=== PATIENT | male | born 1950 | race Caucasian/White ===

== ENCOUNTER 2021-07-21 07:02 | Inpatient (IN) ==
[2021-07-21] MEDS ORDERED: SODIUM CHLORIDE 0.9% 1000ML 1,000 ML IV ONE (07:24)
[2021-07-21] MEDS ORDERED: fentaNYL citrate 100 MCG/2 ML VIAL IV STA (07:24)
[2021-07-21] MEDS ORDERED: ONDANSETRON INJ 2 MG/ML 2 ML VIAL IV STA (07:24)
[2021-07-21] MEDS ORDERED: diphenhydrAMINE 50 MG/ML VIAL IV STA (07:24)
--- NOTE | 2021-07-21 07:31 | Emergency Department Note ---
Impression & Plan Acute pancreatitis ED Provider Note Name: DAMIEN STOCKTON Age: 70 Sex: M Arrives Via: Walk-In Informant: Patient, ED Provider: Gustavo Zamora MD Chief Complaint: Epigastric pain Impression: As per impressions above Medical Decision Makin-year-old pleasant gentleman with a history of prediabetes, seasonal allergies, GERD arrives for acute onset epigastric pain radiating to back with nausea for the last 12 hours. No history of similar. He did have wine and crab cakes just prior to this beginning. He does not drink heavily or regularly and has no history of gallbladder issues. Patient has moderate tenderness to palpation on examination and given findings felt CT imaging indicated. Sent for CT which reveals acute pancreatitis. Labs without significant leukocytosis and vital signs look good. Otherwise labs reveal mildly elevated lipase. Pain controlled with IV narcotics patient kept comfortable. Given this I do feel he requires hospitalization and he and are on board with this plan. Prior Medical Record and Triage/Nursing Notes reviewed by Me Additional history obtained from chart Differentials:Pancreatitis, biliary dysfunction, cholecystitis, aortic dissection/rupture, GERD/PUD, ACS, diverticulitis, appendicitis, bowel obstruction, ischemia, UTI amongst others. Vital Signs: reviewed and remarkable for no significant abnormalities Interventions: Fentanyl 50 mcg IV, Benadryl 25 mg IV, Zofran 4 mg IV, normal saline bolus 1 L, Dilaudid 0.5 mg IV Labs:Reviewed and remarkable for mildly elevated lipase Imaging:CT imaging reveals acute pancreatitis see radiologist read below. I did note that he will likely require 3-month follow-up CT for repeat evaluation EKG:Per My Interpretation: Indication Epigastric Pain: NSR 83 bpm, qtc 446. No Ectopy. No Ischemia. Compared to EKG 08/16/03, no significant changes. Consults:Dr Reece Hospitalist Plan: Disposition:Hospitalization. Condition: Good History of Present Illness:70-year-old gentleman arrives for evaluation of abdominal pain. Patient notes last night around 8 PM he developed sudden onset epigastric pain. Associated with nausea, bloating and feeling that he needs to have a bowel movement without being able to do so. Pain is rapidly worsened overnight and is bandlike across the upper abdomen radiates to his umbilicus. Patient has been using Gas-X overnight without much improvement. Pain is worse with movement and better with rest. He notes no previous episodes of similar. He does have a history of GERD but this is not consistent with his previous GERD symptoms. He was having some wine and crab cakes last night when this started. His had similar and is not having any symptoms. Patient has had no recent falls, trauma, injuries. He denies any recent antibiotics. He has had no vom iting, chest pain, shortness of breath, headaches, neck pain, rashes, fevers, chills, urinary/bowel symptoms, leg swelling, bruising, blood in stool, nor other symptoms. Patient has not been any new medications. He has no smoking history. He has no family history of abdominal issues. He has no history of abdominal surgeries. Patient notes a remote history of UTI with complication requiring a CT of the abdomen pelvis about 25 to 30 years ago denies any symptoms similar to that with this episode. ROS: See above HPI for pertinent positives & negatives. A total of 10 systems reviewed and were otherwise negative. 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 Vitals:Blood Pressure: 165/99, Pulse 88, RR 20, T 37.0C, O2 94% on RA Physical Exam: GENERAL: Patient is uncomfortable appearing and in moderate distress. EYES: No scleral icterus, unremarkable pupils. ENT: Mucous membranes moist, no nasal congestion. NECK: No masses appreciated, nomeningismus, trachea is midline. RESPIRATORY: No dyspnea. Clear to auscultation and equal bilaterally. No wheeze, no rhonchi. CARDIOVASCULAR: Regular rate and rhythm.No murmurs, rubs, gallops appreciated. GASTROINTESTINAL: TTP over upper/epigastric abdomen, no peritonitis, soft, normal bowel sounds, no masses BACK: No midline tenderness, no CVA tenderness EXTREMITIES: Normal motion all extremities, no cyanosis, no edema. NEUROLOGIC: Alert and oriented, no acute motor or sensory deficits, no focal weakness, cranial nerves grossly intact. SKIN: No rash, no jaundice, no diaphoresis. PSYCH: Appropriate GCS: 15 ED Course: Times/Reassessments: Patient improved with IV narcotics and kept comfortable throughout. Questions answered. Gustavo Zamora MD Past Med/Surg History Medical History Adenomatous polyp of colon GERD (gastroesophageal reflux disease) Insomnia Prediabetes Seasonal allergies Surgical History History of colonoscopy History of esophagogastroduodenoscopy (EGD) History of root canal procedure History of wisdom tooth extraction Family History Father Diabetes Myocardial infarction Denies family history of Ovarian cancer Prostate cancer No family history of adverse response to anesthesia Breast cancer Colorectal cancer Social History Smoking Status: Never smoker Second Hand Exposure: No; Hx Alcohol Use: Yes Alcohol type: beer, wine and hard liquor Hx Substance Use: No Preferred Language: Romansh Communication Ability: Effective Program Evaluator Required: No Beliefs That Will Affect Care: None marital status: Current Living Situation: Spouse current occupational status: employed Feels Safe at Home: Yes Dental Care, Regularly: Yes Physical Activity Frequency: 5-6 Times per Week Seatbelt Use: always Sunscreen Use: Yes Assistive Devices: Glasses Allergies Allergies Allergy/AdvReac Type Severity Reaction Status Date / Time latex Allergy Unknown ITCHING Verified 07/21/21 08:16 Home Meds Home Medications Medication Instructions Recorded Confirmed famotidine 20 mg tablet (Pepcid) 20 mg PO QAM 07/19/18 07/21/21 fexofenadine 60 mg tablet 60 mg PO BID 07/19/18 07/21/21 multivitamin 1 tab PO QAM 07/19/18 07/21/21 triamcinolone acetonide 55 mcg 1 spray INTRANASAL HS 07/19/18 07/21/21 nasal spray aerosol (Nasacort) cholecalciferol (vitamin D3) 50 50 mcg PO QAM 04/09/21 07/21/21 mcg (2,000 unit) capsule omeprazole 20 mg tablet,delayed 20 mg PO DAILY@1600 07/21/21 07/21/21 release Previous Rx's Medication Instructions Recorded albuterol sulfate 90 mcg/actuation 1 inh INHALATION QID PRN #18 g 03/13/20 aerosol inhaler (Ventolin HFA) zolpidem 5 mg tablet 5 mg PO HS PRN #90 tab 10/09/20 Results & Data (ED) Vital Signs Vital Signs - 24 hr 07/21/21 07:09 07/21/21 07:34 07/21/21 07:40 Temperature 37.0 C Temperature Source Oral Pulse Rate 88 81 81 Pulse Rate from SpO2 Sensor 83 82 Respiratory Rate 20 20 15 Respiratory Effort / Characteristics Non-Labored Spontaneous Respiratory Depth Normal Respiratory Pattern Regular Blood Pressure 165/99 H Blood Pressure Mean 121 Pulse Oximetry 94 94 94 Oxygen Delivery Method Room Air Sepsis Recent Fever Within 48 Hours No Sepsis New/Unexplained Change in Mental Status N/A Sepsis Action Taken by Nursing No Action Required 07/21/21 07:50 07/21/21 08:00 07/21/21 08:10 Temperature Temperature Source Pulse Rate 78 75 76 Pulse Rate from SpO2 Sensor 76 74 77 Respiratory Rate 13 13 19 Respiratory Effort / Characteristics Respiratory Depth Respiratory Pattern Blood Pressure 151/93 H Blood Pressure Mean 112 Pulse Oximetry 95 95 91 Oxygen Delivery Method Sepsis Recent Fever Within 48 Hours Sepsis New/Unexplained Change in Mental Status Sepsis Action Taken by Nursing 07/21/21 08:20 07/21/21 08:42 07/21/21 08:50 Temperature Temperature Source Pulse Rate 73 79 71 Pulse Rate from SpO2 Sensor 74 79 72 Respiratory Rate 18 16 18 Respiratory Effort / Characteristics Respiratory Depth Respiratory Pattern Blood Pressure 160/85 H Blood Pressure Mean 110 Pulse Oximetry 94 94 97 Oxygen Delivery Method Sepsis Recent Fever Within 48 Hours Sepsis New/Unexplained Change in Mental Status Sepsis Action Taken by Nursing 07/21/21 09:00 07/21/21 09:10 07/21/21 09:20 Temperature Temperature Source Pulse Rate 67 74 71 Pulse Rate from SpO2 Sensor 69 74 72 Respiratory Rate 18 21 17 Respiratory Effort / Characteristics Respiratory Depth Respiratory Pattern Blood Pressure 158/93 H Blood Pressure Mean 114 Pulse Oximetry 95 95 95 Oxygen Delivery Method Sepsis Recent Fever Within 48 Hours Sepsis New/Unexplained Change in Mental Status Sepsis Action Taken by Nursing 07/21/21 09:30 07/21/21 09:40 07/21/21 09:50 Temperature Temperature Source Pulse Rate 75 81 71 Pulse Rate from SpO2 Sensor 74 82 71 Respiratory Rate 17 18 16 Respiratory Effort / Characteristics Respiratory Depth Respiratory Pattern Blood Pressure 148/89 H Blood Pressure Mean 108 Pulse Oximetry 91 92 92 Oxygen Delivery Method Sepsis Recent Fever Within 48 Hours Sepsis New/Unexplained Change in Mental Status Sepsis Action Taken by Nursing 07/21/21 10:00 07/21/21 10:10 07/21/21 10:20 Temperature Temperature Source Pulse Rate 72 71 81 Pulse Rate from SpO2 Sensor 72 71 80 Respiratory Rate 18 20 18 Respiratory Effort / Characteristics Respiratory Depth Respiratory Pattern Blood Pressure 147/88 H Blood Pressure Mean 107 Pulse Oximetry 93 94 95 Oxygen Delivery Method Sepsis Recent Fever Within 48 Hours Sepsis New/Unexplained Change in Mental Status Sepsis Action Taken by Nursing 07/21/21 10:30 07/21/21 10:40 07/21/21 10:50 Temperature Temperature Source Pulse Rate 78 73 72 Pulse Rate from SpO2 Sensor 78 73 74 Respiratory Rate 20 15 20 Respiratory Effort / Characteristics Respiratory Depth Respiratory Pattern Blood Pressure 160/96 H Blood Pressure Mean 117 Pulse Oximetry 95 96 94 Oxygen Delivery Method Sepsis Recent Fever Within 48 Hours Sepsis New/Unexplained Change in Mental Status Sepsis Action Taken by Nursing 07/21/21 11:00 07/21/21 11:10 07/21/21 11:20 Temperature Temperature Source Pulse Rate 87 81 82 Pulse Rate from SpO2 Sensor 85 82 81 Respiratory Rate 24 21 17 Respiratory Effort / Characteristics Respiratory Depth Respiratory Pattern Blood Pressure 153/88 H Blood Pressure Mean 109 Pulse Oximetry 93 95 92 Oxygen Delivery Method Sepsis Recent Fever Within 48 Hours Sepsis New/Unexplained Change in Mental Status Sepsis Action Taken by Nursing 07/21/21 11:30 07/21/21 11:40 07/21/21 11:50 Temperature Temperature Source Pulse Rate 76 77 74 Pulse Rate from SpO2 Sensor 76 76 74 Respiratory Rate 17 16 15 Respiratory Effort / Characteristics Respiratory Depth Respiratory Pattern Blood Pressure 147/87 H Blood Pressure Mean 107 Pulse Oximetry 91 91 92 Oxygen Delivery Method Sepsis Recent Fever Within 48 Hours Sepsis New/Unexplained Change in Mental Status Sepsis Action Taken by Nursing 07/21/21 12:00 07/21/21 12:10 07/21/21 12:20 Temperature Temperature Source Pulse Rate 77 76 75 Pulse Rate from SpO2 Sensor 77 75 Respiratory Rate 15 16 17 Respiratory Effort / Characteristics Respiratory Depth Respiratory Pattern Blood Pressure 148/84 H Blood Pressure Mean 105 Pulse Oximetry 91 92 Oxygen Delivery Method Sepsis Recent Fever Within 48 Hours Sepsis New/Unexplained Change in Mental Status Sepsis Action Taken by Nursing 07/21/21 12:30 07/21/21 12:40 Temperature Temperature Source Pulse Rate 77 81 Pulse Rate from SpO2 Sensor 76 81 Respiratory Rate 15 21 Respiratory Effort / Characteristics Respiratory Depth Respiratory Pattern Blood Pressure 151/85 H Blood Pressure Mean 107 Pulse Oximetry 92 93 Oxygen Delivery Method Sepsis Recent Fever Within 48 Hours Sepsis New/Unexplained Change in Mental Status Sepsis Action Taken by Nursing Laboratory Data Result diagrams: 07/21/21 07:40 07/21/21 07:40 Lab Results 07/21/21 07/21/21 07/21/21 Range/Units 07:40 07:40 07:40 WBC 10.95 H (4.8-10.8) K/uL RBC 5.35 (4.7-6.1) M/uL Hgb 16.3 (14.0-18.0) g/dL POC Hgb (14.0-18.0) g/dl Hct 46.2 (42-52) % POC Hct (42-52) % MCV 86.4 (80-100) fL MCH 30.5 (25-34) pg MCHC 35.3 (32-36) g/dL RDW Std Deviation 42.5 (36.4-46.3) fL RDW Coeff of Swathi 13.5 (11.5-14.5) % Plt Count 258 (130-400) K/uL MPV 11.0 H (7.4-10.4) fL Immature Gran % (Auto) 0.1 % Neut % (Auto) 82.3 % Lymph % (Auto) 9.6 % [place] % (Auto) 7.8 % Eos % (Auto) 0.1 % Baso % (Auto) 0.1 % Neut # (Auto) 9.02 H (1.4-6.5) K/uL Lymph # (Auto) 1.05 L (1.2-3.4) K/uL [place] # (Auto) 0.85 H (0.11-0.59) K/uL Eos # (Auto) 0.01 (0-0.5) K/uL Baso # (Auto) 0.01 (0-0.2) K/uL Immature Gran # (Auto) 0.01 (0.00-0.02) K/uL POC Sodium (135-144) mmol/L Sodium 137 (136-145) mmol/L POC Potassium (3.3-5.0) mmol/L Potassium 3.8 (3.5-5.1) mmol/L POC Chloride (101-112) mmol/L Chloride 104 (98-107) mmol/L Carbon Dioxide 25 (21-32) mmol/L POC Total CO2 (24-31) mmol/L Anion Gap 8 (3-11) POC Anion Gap (16-25) mmol/L POC BUN (7-18) mg/dl BUN 18 (6-23) mg/dl Creatinine 0.86 (0.6-1.4) mg/dl POC Creatinine (0.6-1.3) mg/dl Est Cr Clr Drug Dosing 77.3 ml/min Est GFR ( Amer) 101.8 ml/min Est GFR (Non-Af Amer) 87.9 ml/min BUN/Creatinine Ratio 20.9 H (10-20) Glucose 123 H (70-99(Fasting)) mg/dl POC Glucose (other) (70-99) mg/dl Calcium 9.1 (8.5-10.1) mg/dl POC Ioniz Calcium Brittany (1.12-1.32) mmol/l Total Bilirubin 0.7 (0.2-1.0) mg/dl Direct Bilirubin 0.1 (0-0.2) mg/dl AST 20 (13-39) U/L ALT 19 (7-52) U/L Alkaline Phosphatase 46 (34-104) U/L Troponin I < 0.03 (0-0.04) ng/ml Total Protein 6.9 (6.0-8.3) gm/dl Albumin 4.2 (3.4-5.0) gm/dl Triglycerides 50 (0-150) mg/dl Lipase 277 H (11-82) U/L Urine Color Urine Appearance (Clear) Urine pH (4.5-7.5) Ur Specific [place] (1.000-1.030) Urine Protein (Negative) Urine Glucose (UA) (Negative) Urine Ketones (Negative) Urine Blood (Negative) Urine Nitrite (Negative) Urine Bilirubin (Negative) Urine Urobilinogen (Negative) Ur Leukocyte Esterase (Negative) Urine WBC (Auto) (0-5) /hpf Urine RBC (Auto) (0-4) /hpf U Hyaline Cast (Auto) (0-5) /lpf U Epithel Cells (Auto) (0-5) /lpf Urine Bacteria (Auto) (Negative) SARS-CoV-2, RNA, NAAT 07/21/21 07/21/21 07/21/21 Range/Units 07:53 08:57 09:17 WBC (4.8-10.8) K/uL RBC (4.7-6.1) M/uL Hgb (14.0-18.0) g/dL POC Hgb 16.0 (14.0-18.0) g/dl Hct (42-52) % POC Hct 47 (42-52) % MCV (80-100) fL MCH (25-34) pg MCHC (32-36) g/dL RDW Std Deviation (36.4-46.3) fL RDW Coeff of Swathi (11.5-14.5) % Plt Count (130-400) K/uL MPV (7.4-10.4) fL Immature Gran % (Auto) % Neut % (Auto) % Lymph % (Auto) % [place] % (Auto) % Eos % (Auto) % Baso % (Auto) % Neut # (Auto) (1.4-6.5) K/uL Lymph # (Auto) (1.2-3.4) K/uL [place] # (Auto) (0.11-0.59) K/uL Eos # (Auto) (0-0.5) K/uL Baso # (Auto) (0-0.2) K/uL Immature Gran # (Auto) (0.00-0.02) K/uL POC Sodium 139 (135-144) mmol/L Sodium (136-145) mmol/L POC Potassium 3.9 (3.3-5.0) mmol/L Potassium (3.5-5.1) mmol/L POC Chloride 102 (101-112) mmol/L Chloride (98-107) mmol/L Carbon Dioxide (21-32) mmol/L POC Total CO2 26 (24-31) mmol/L Anion Gap (3-11) POC Anion Gap 16.0 (16-25) mmol/L POC BUN 19 H (7-18) mg/dl BUN (6-23) mg/dl Creatinine (0.6-1.4) mg/dl POC Creatinine 0.8 (0.6-1.3) mg/dl Est Cr Clr Drug Dosing ml/min Est GFR ( Amer) ml/min Est GFR (Non-Af Amer) ml/min BUN/Creatinine Ratio (10-20) Glucose (70-99(Fasting)) mg/dl POC Glucose (other) 130 H (70-99) mg/dl Calcium (8.5-10.1) mg/dl POC Ioniz Calcium Brittany 1.18 (1.12-1.32) mmol/l Total Bilirubin (0.2-1.0) mg/dl Direct Bilirubin (0-0.2) mg/dl AST (13-39) U/L ALT (7-52) U/L Alkaline Phosphatase (34-104) U/L Troponin I (0-0.04) ng/ml Total Protein (6.0-8.3) gm/dl Albumin (3.4-5.0) gm/dl Triglycerides (0-150) mg/dl Lipase (11-82) U/L Urine Color Yellow Urine Appearance Clear (Clear) Urine pH 7.5 (4.5-7.5) Ur Specific [place] 1.039 H (1.000-1.030) Urine Protein Negative (Negative) Urine Glucose (UA) Negative (Negative) Urine Ketones Negative (Negative) Urine Blood Trace H (Negative) Urine Nitrite Negative (Negative) Urine Bilirubin Negative (Negative) Urine Urobilinogen Negative (Negative) Ur Leukocyte Esterase Negative (Negative) Urine WBC (Auto) 0 (0-5) /hpf Urine RBC (Auto) 10-30 H (0-4) /hpf U Hyaline Cast (Auto) 0 (0-5) /lpf U Epithel Cells (Auto) 0-5 (0-5) /lpf Urine Bacteria (Auto) Negative (Negative) SARS-CoV-2, RNA, NAAT Cancelled 07/21/21 Range/Units 09:55 WBC (4.8-10.8) K/uL RBC (4.7-6.1) M/uL Hgb (14.0-18.0) g/dL POC Hgb (14.0-18.0) g/dl Hct (42-52) % POC Hct (42-52) % MCV (80-100) fL MCH (25-34) pg MCHC (32-36) g/dL RDW Std Deviation (36.4-46.3) fL RDW Coeff of Swathi (11.5-14.5) % Plt Count (130-400) K/uL MPV (7.4-10.4) fL Immature Gran % (Auto) % Neut % (Auto) % Lymph % (Auto) % [place] % (Auto) % Eos % (Auto) % Baso % (Auto) % Neut # (Auto) (1.4-6.5) K/uL Lymph # (Auto) (1.2-3.4) K/uL [place] # (Auto) (0.11-0.59) K/uL Eos # (Auto) (0-0.5) K/uL Baso # (Auto) (0-0.2) K/uL Immature Gran # (Auto) (0.00-0.02) K/uL POC Sodium (135-144) mmol/L Sodium (136-145) mmol/L POC Potassium (3.3-5.0) mmol/L Potassium (3.5-5.1) mmol/L POC Chloride (101-112) mmol/L Chloride (98-107) mmol/L Carbon Dioxide (21-32) mmol/L POC Total CO2 (24-31) mmol/L Anion Gap (3-11) POC Anion Gap (16-25) mmol/L POC BUN (7-18) mg/dl BUN (6-23) mg/dl Creatinine (0.6-1.4) mg/dl POC Creatinine (0.6-1.3) mg/dl Est Cr Clr Drug Dosing ml/min Est GFR ( Amer) ml/min Est GFR (Non-Af Amer) ml/min BUN/Creatinine Ratio (10-20) Glucose (70-99(Fasting)) mg/dl POC Glucose (other) (70-99) mg/dl Calcium (8.5-10.1) mg/dl POC Ioniz Calcium Brittany (1.12-1.32) mmol/l Total Bilirubin (0.2-1.0) mg/dl Direct Bilirubin (0-0.2) mg/dl AST (13-39) U/L ALT (7-52) U/L Alkaline Phosphatase (34-104) U/L Troponin I (0-0.04) ng/ml Total Protein (6.0-8.3) gm/dl Albumin (3.4-5.0) gm/dl Triglycerides (0-150) mg/dl Lipase (11-82) U/L Urine Color Urine Appearance (Clear) Urine pH (4.5-7.5) Ur Specific [place] (1.000-1.030) Urine Protein (Negative) Urine Glucose (UA) (Negative) Urine Ketones (Negative) Urine Blood (Negative) Urine Nitrite (Negative) Urine Bilirubin (Negative) Urine Urobilinogen (Negative) Ur Leukocyte Esterase (Negative) Urine WBC (Auto) (0-5) /hpf Urine RBC (Auto) (0-4) /hpf U Hyaline Cast (Auto) (0-5) /lpf U Epithel Cells (Auto) (0-5) /lpf Urine Bacteria (Auto) (Negative) SARS-CoV-2, RNA, NAAT NEGATIVE Administered Medications Hydromorphone HCl (Hydromorphone Inj 0.5 Mg/0.5 Ml Syr) 0.5 mg IV Q15M PRN PRN Reason: Pain Stop: 08/04/21 09:12 Last Admin: 07/21/21 11:18 Dose: 0.5 mg Documented by: [id number] Lactated Ringer's (Lr) 1,000 mls @ 125 mls/hr IV .Q8H [facility] Stop: 08/20/21 10:44 Last Admin: 07/21/21 11:15 Dose: 125 mls/hr Documented by: [id number] Discontinued Medications Diphenhydramine HCl (Diphenhydramine 50 Mg/Ml Vial) 25 mg IV NOW STA Stop: 07/21/21 07:25 Last Admin: 07/21/21 08:04 Dose: 25 mg Documented by: [id number] Fentanyl Citrate (Fentanyl Citrate 100 Mcg/2 Ml Vial) 50 mcg IV NOW STA Stop: 07/21/21 07:25 Last Admin: 07/21/21 08:04 Dose: 50 mcg Documented by: [id number] Hydromorphone HCl (Hydromorphone Inj 0.5 Mg/0.5 Ml Syr) 0.5 mg IV NOW STA Stop: 07/21/21 09:14 Last Admin: 07/21/21 09:26 Dose: 0.5 mg Documented by: [id number] Sodium Chloride (Nss 1000ml) 1,000 mls @ 999 mls/hr IV .Q1H1M ONE Stop: 07/21/21 08:24 Last Admin: 07/21/21 08:06 Dose: 999 mls/hr Documented by: [id number] Ioversol (Optiray 320 100ml) 95 ml IV ONCE ONE Stop: 07/21/21 08:40 Last Admin: 07/21/21 08:39 Dose: 95 ml Documented by: [id number] Ondansetron HCl (Ondansetron Inj 2 Mg/Ml 2 Ml Vial) 4 mg IV NOW STA Stop: 07/21/21 07:25 Last Admin: 07/21/21 08:04 Dose: 4 mg Documented by: [id number] Imaging Data Radiologist's Impression: Abdomen/Pelvis CT 07/21/21 07:24 CT OF THE ABDOMEN AND PELVIS WITH CONTRAST CLINICAL HISTORY: Epigastric and mid abdominal pain. COMPARISON STUDY: Renal ultrasound May 03, 2008. TECHNIQUE: Following IV administration of 95 mL of Optiray, axial images of the abdomen and pelvis were obtained from the lung bases to the proximal femurs. Images were reviewed in the axial, sagittal, and coronal planes. IV contrast was administered without complication. Automated exposure control was utilized for the study. A dose lowering technique was utilized adhering to the principles of ALARA. CT DOSE: 341.44 mGy.cm FINDINGS: Ground glass opacities within the lower lungs represent atelectasis. No pneumatosis, free air or portal venous gas is present. There is probable hepatic steatosis. No biliary or pancreatic ductal dilatation is noted. Note is made of moderate stranding and fluid centered on the pancreatic tail and body. Hypodensity within the pancreatic tail is noted. No well-defined lesion is present. There is no peripancreatic fluid collection. There is no evidence for a bowel obstruction. Caliber and wall thickness of small and large bowel are normal. Colonic diverticulosis is noted without evidence for acute diverticulitis. Moderate amount of stool within the colon is noted. Prostate is enlarged, measuring 5.7 cm in transverse dimension. There is no hydronephrosis. Multiple left renal cysts measure up to 5.7 cm. Major vasculature is patent. No acute fracture or suspicious lesion is identified within visualized skeletal structures. There is no abdominal or pelvic lymphadenopathy. IMPRESSION: 1. Moderate stranding and fluid centered on the pancreatic tail and body suggestive of acute pancreatitis. No peripancreatic fluid collection. Hypodensity within the pancreatic tail related to acute pancreatitis. A CT of the abdomen 3 months is recommended to ensure resolution and exclude the unlikely possibility of an underlying pancreatic lesion. 2. Probable hepatic steatosis. 3. No biliary or pancreatic ductal dilatation. ACT 112: Negative or not required by law. Electronically signed by: Jv [email or web address] M.D. 07/21/2021 9:00 AM Discharge Plan Visit Data Chief Complaint: Abdominal Pain Stated Complaint: ABD PAIN ED Provider: Gustavo Zamora Discharge Problem: Acute pancreatitis Forms Stand Alone Forms: [place] [facility] [place] [employer] Prescriptions Prescriptions: No Action albuterol sulfate [Ventolin HFA] 90 mcg/actuation HFA aerosol inhaler 1 inh inhalation QID PRN (Reason: shortness of breath or wheezing) Qty: 18 RF: 1 zolpidem 5 mg tablet 5 mg PO HS PRN (Reason: Sleep) Qty: 90 RF: 0 cholecalciferol (vitamin D3) 50 mcg (2,000 unit) capsule 50 mcg PO QAM RF: 0 multivitamin Tablet 1 tab PO QAM RF: 0 fexofenadine 60 mg Tablet 60 mg PO BID RF: 0 famotidine [Pepcid] 20 mg Tablet 20 mg PO QAM RF: 0 triamcinolone acetonide [Nasacort] 55 mcg Aerosol,Martin 1 spray INTRANASAL HS RF: 0 omeprazole 20 mg tablet,delayed release (DR/EC) 20 mg PO DAILY@1600 RF: 0 Referrals Referrals: Wayne Coleman MD [Primary Care Provider] - Discharge Problem: Acute pancreatitis Qualifiers: Pancreatitis type: unspecified pancreatitis type Acute pancreatitis complication: no infection or necrosis Qualified Code(s): K85.90 - Acute pancreatitis without necrosis or infection, unspecified
[2021-07-21 08:05] LABS: iSTAT Creatinine 0.8 mg/dl (0.6-1.3); iSTAT Ionized Calcium 1.18 mmol/l (1.12-1.32); iSTAT Potassium 3.9 mmol/L (3.3-5.0)
[2021-07-21 08:26] LABS: Basophils # (auto) 0.01 K/uL (0-0.2); Basophils % (auto) 0.1 %; Eosinophils # (auto) 0.01 K/uL (0-0.5); Eosinophils % (auto) 0.1 %; Hematocrit (blood only) 46.2 % (42-52); Hemoglobin 16.3 g/dL (14.0-18.0); Immature Granulocytes # (auto) 0.01 K/uL (0.00-0.02); Immature Granulocytes % (auto) 0.1 %; Lymphocytes # (auto) 1.05 K/uL (1.2-3.4); Lymphocytes % (auto) 9.6 %; Mean Corpuscular Hemoglobin 30.5 pg (25-34); Mean Corpuscular Hgb Conc 35.3 g/dL (32-36); Mean Corpuscular Volume 86.4 fL (80-100); Monocytes # (auto) 0.85 K/uL (0.11-0.59); Monocytes % (auto) 7.8 %; Neutrophils # (auto) 9.02 K/uL (1.4-6.5); Neutrophils % (auto) 82.3 %; Platelet Count 258 K/uL (130-400); RDW Coefficient of Variation 13.5 % (11.5-14.5); RDW Standard Deviation 42.5 fL (36.4-46.3); Red Blood Count 5.35 M/uL (4.7-6.1); White Blood Count 10.95 K/uL (4.8-10.8)
[2021-07-21] MEDS ORDERED: OPTIRAY 320 100ml IV ONE (08:39)
--- NOTE | 2021-07-21 09:02 | CT Scan Report ---
CT OF THE ABDOMEN AND PELVIS WITH CONTRAST CLINICAL HISTORY: Epigastric and mid abdominal pain. COMPARISON STUDY: Renal ultrasound May 03, 2008. TECHNIQUE: Following IV administration of 95 mL of Optiray, axial images of the abdomen and pelvis we re obtained from the lung bases to the proximal femurs. Images were reviewed in the axial, sagittal, and coronal planes. IV contrast was administered without complication. Automated exposure control wa s utilized for the study. A dose lowering technique was utilized adhering to the principles of ALARA . CT DOSE: 341.44 mGy.cm FINDINGS: Ground glass opacities within the lower lungs represent atelectasis. No pneumatosis, free a ir or portal venous gas is present. There is probable hepatic steatosis. No biliary or pancreatic gavin candelaria dilatation is noted. Note is made of moderate stranding and fluid centered on the pancreatic tail and body. Hypodensity within the pancreatic tail is noted. No well-defined lesion is present. There is no peripancreatic fluid collection. There is no evidence for a bowel obstruction. Caliber and wall thickness of small and large bowel are normal. Colonic diverticulosis is noted without evidence for acute diverticulitis. Moderate amount of stool within the colon is noted. Prostate is enlarged, measu ring 5.7 cm in transverse dimension. There is no hydronephrosis. Multiple left renal cysts measure up to 5.7 cm. Major vasculature is patent. No acute fracture or suspicious lesion is identified within visualized skeletal structures. There is no abdominal or pelvic lymphadenopathy. IMPRESSION: 1. Moderate stranding and fluid centered on the pancreatic tail and body suggestive of acute pancreat itis. No peripancreatic fluid collection. Hypodensity within the pancreatic tail related to acute olivier creatitis. A CT of the abdomen 3 months is recommended to ensure resolution and exclude the unlikely possibility of an underlying pancreatic lesion. 2. Probable hepatic steatosis. 3. No biliary or pancreatic ductal dilatation. ACT 112: Negative or not required by law. Electronically signed by: Jv Couch M.D. 07/21/2021 9:00 AM
[2021-07-21 09:12] LABS: Troponin I < 0.03 ng/ml (0-0.04)
[2021-07-21] MEDS ORDERED: HYDROmorphone INJ 0.5 MG/0.5 ML SYR IV STA (09:13)
[2021-07-21] MEDS ORDERED: HYDROmorphone INJ 0.5 MG/0.5 ML SYR IV PRN (09:13)
[2021-07-21 09:18] LABS: Alanine Aminotransferase 19 U/L (7-52); Albumin Level 4.2 gm/dl (3.4-5.0); Alkaline Phosphatase 46 U/L (34-104); Anion Gap 8 (3-11); Aspartate Aminotransferase 20 U/L (13-39); BUN Creatinine Ratio 20.9 (10-20); Bilirubin Direct 0.1 mg/dl (0-0.2); Bilirubin,Total 0.7 mg/dl (0.2-1.0); Blood Urea Nitrogen 18 mg/dl (6-23); Calcium 9.1 mg/dl (8.5-10.1); Carbon Dioxide 25 mmol/L (21-32); Chloride 104 mmol/L (98-107); Creatinine Clr Calc Pharmacy 77.3 ml/min; Est GFR (African American) 101.8 ml/min; Est GFR (Non-African American) 87.9 ml/min; Glucose 123 mg/dl (70-99(Fasting)); Lipase 277 U/L (11-82); Potassium 3.8 mmol/L (3.5-5.1); Sodium 137 mmol/L (136-145); Total Protein 6.9 gm/dl (6.0-8.3)
[2021-07-21 09:44] LABS: Appearance Urine Clear (Clear); Bacteria Urine Automated Negative (Negative); Bilirubin Urine Negative (Negative); Blood Urine Trace (Negative); Cast Urine Automated 0 /lpf (0-5); Color Urine Yellow; Epithelial Cell Urine Auto 0-5 /lpf (0-5); Glucose Urine UA Negative (Negative); Ketones Urine Negative (Negative); Leukocyte Esterase Urine Negative (Negative); Nitrite Urine Negative (Negative); Protein Urine Negative (Negative); Specific Gravity Urine 1.039 (1.000-1.030); Urobilinogen Urine Negative (Negative); WBC Urine Automated 0 /hpf (0-5); pH Urine 7.5 (4.5-7.5)
--- NOTE | 2021-07-21 10:24 | History & Physical Report ---
Date of Service July 21, 2021 History of Present Illness Primary Care Provider: Wayne Coleman MD Allergies Allergy/AdvReac Type Severity Reaction Status Date / Time latex Allergy Unknown ITCHING Verified 07/21/21 08:16 Home Medications Medication Instructions Recorded Confirmed Type famotidine 20 mg tablet (Pepcid) 20 mg PO QAM 07/19/18 07/21/21 History fexofenadine 60 mg tablet 60 mg PO BID 07/19/18 07/21/21 History multivitamin 1 tab PO QAM 07/19/18 07/21/21 History triamcinolone acetonide 55 mcg 1 spray INTRANASAL HS 07/19/18 07/21/21 History nasal spray aerosol (Nasacort) albuterol sulfate 90 mcg/actuation 1 inh INHALATION QID PRN #18 g 03/13/20 07/21/21 Rx aerosol inhaler (Ventolin HFA) zolpidem 5 mg tablet 5 mg PO HS PRN #90 tab 10/09/20 07/21/21 Rx cholecalciferol (vitamin D3) 50 50 mcg PO QAM 04/09/21 07/21/21 History mcg (2,000 unit) capsule omeprazole 20 mg tablet,delayed 20 mg PO DAILY@1600 07/21/21 07/21/21 History release Past Med/Surg History Medical History Adenomatous polyp of colon GERD (gastroesophageal reflux disease) Insomnia Prediabetes Seasonal allergies Surgical History History of colonoscopy History of esophagogastroduodenoscopy (EGD) History of root canal procedure History of wisdom tooth extraction Family History Father Diabetes Myocardial infarction Denies family history of Ovarian cancer Prostate cancer No family history of adverse response to anesthesia Breast cancer Colorectal cancer Social History Smoking Status: Never smoker Second Hand Exposure: No; Hx Alcohol Use: Yes Alcohol type: beer, wine and hard liquor Hx Substance Use: No Preferred Language: Tajik Communication Ability: Effective Anaesthesiologist Required: No Beliefs That Will Affect Care: None marital status: Current Living Situation: Spouse current occupational status: employed Feels Safe at Home: Yes Dental Care, Regularly: Yes Physical Activity Frequency: 5-6 Times per Week Seatbelt Use: always Sunscreen Use: Yes Assistive Devices: Glasses Results & Data Results & Data ([facility]) Vital Signs (Past 12 Hours) Vital Signs Temp Pulse Resp BP Pulse Ox 07/21/21 09:50 71 16 92 07/21/21 09:40 81 18 92 07/21/21 09:30 75 17 148/89 H 91 07/21/21 09:20 71 17 95 07/21/21 09:10 74 21 95 07/21/21 09:00 67 18 158/93 H 95 07/21/21 08:50 71 18 97 07/21/21 08:42 79 16 160/85 H 94 07/21/21 08:20 73 18 94 07/21/21 08:10 76 19 91 07/21/21 08:00 75 13 151/93 H 95 07/21/21 07:50 78 13 95 07/21/21 07:40 81 15 94 07/21/21 07:34 81 20 94 07/21/21 07:09 37.0 C 88 20 165/99 H 94 PG Care Time/CCT Total # of Minutes Spent Total Time Spent with Patient: Total time spent is greater than 50% in coordination of care (as documented) at patient's floor/unit and/or counseling patient: Coding
[2021-07-21] MEDS ORDERED: POLYETHYLENE (MIRALAX) 17 GM PACK PO PRN (10:45)
--- NOTE | 2021-07-21 11:05 | Hospitalist Consultation ---
Date of Consultation July 21, 2021 Assessment & Plan (1) Acute pancreatitis: -Causes include alcohol versus hypertriglyceridemia, lipid panel pending. Patient reports drinking a bottle of wine last night with his , drinks 1 to 2 glasses of alcohol each night. -Lipase 277. WBC 10.9. Epigastric pain with radiation to back which has been reduced with -CT showed moderate stranding and fluid centered on the pancreatic tail and body suggestive of acute pancreatitis. No peripancreatic fluid collection. Hypodensity within the pancreatic tail related to acute pancreatitis. -LRs at 125cc/hr as well as low fat diet as tolerated, (2) Prediabetes: -HbA1c in March was 5.7. Glucose today is mildly elevated at 123. -Not on any home medications, no chnages or further intervention recommended. (3) GERD (gastroesophageal reflux disease): -ontinue home medications are prescribed. (4) Seasonal allergies: -Continue home medications are prescribed. -Recommend that patient be discharged home as this is an uncomplicated, mild pancreatitis. he is tolerating PO intake, does not appear hypovolemic, and adequate pain control can be achieved. Patient has the resources at home to manage this, can return to ED for worsening of his condition. History of Present Illness History of Present Illness Patient is 70-year-old male with past medical history of GERD, prediabetes, seasonal allergies, and insomnia who presents this morning with epigastric pain that has been going on since last evening. Patient states he was sharing meal with his consisting of wine, crackers and cupcakes. Shortly after finishing the meal he developed epigastric pain that was sharp and stabbing in nature, radiating to his back and around his left upper quadrant in a bandlike fashion. Patient also felt gassy, initially thought he was constipated. Took some Gas-X and tried to have a bowel movement which she was successful in, however this did not alleviate his pain. Pain is worse with movement coughing, alleviated with rest. Pain severity and character has been constant since its onset last evening, 7 at worst and now 4 after receiving pain medications in the ED. He had been drinking water at home without any nausea or vomiting. Also denies chest pain, palpitations, shortness of breath, fever/chills, abdominal pain other than as stated above, urinary symptoms, diarrhea, constipation. Patient states he drinks 1 to 2 glasses of alcohol every night. Has never experienced pain like this before. Labs in ED showed elevated WBC at 10, lipase 277, otherwise all labs within normal limits. Patient is hypertensive likely due to pain, all other vital signs stable and within normal limits. BISAP score of 1, patient gets one-point for age greater than 60. Allergies Allergy/AdvReac Type Severity Reaction Status Date / Time latex Allergy Unknown ITCHING Verified 07/21/21 08:16 Home Medications Medication Instructions Recorded Confirmed Type famotidine 20 mg tablet (Pepcid) 20 mg PO QAM 07/19/18 07/21/21 History fexofenadine 60 mg tablet 60 mg PO BID 07/19/18 07/21/21 History multivitamin 1 tab PO QAM 07/19/18 07/21/21 History triamcinolone acetonide 55 mcg 1 spray INTRANASAL HS 07/19/18 07/21/21 History nasal spray aerosol (Nasacort) albuterol sulfate 90 mcg/actuation 1 inh INHALATION QID PRN #18 g 03/13/20 07/21/21 Rx aerosol inhaler (Ventolin HFA) zolpidem 5 mg tablet 5 mg PO HS PRN #90 tab 10/09/20 07/21/21 Rx cholecalciferol (vitamin D3) 50 50 mcg PO QAM 04/09/21 07/21/21 History mcg (2,000 unit) capsule omeprazole 20 mg tablet,delayed 20 mg PO DAILY@1600 07/21/21 07/21/21 History release Patient History Medical History Adenomatous polyp of colon GERD (gastroesophageal reflux disease) Insomnia Prediabetes Seasonal allergies Surgical History History of colonoscopy History of esophagogastroduodenoscopy (EGD) History of root canal procedure History of wisdom tooth extraction Family History Father Diabetes Myocardial infarction Denies family history of Ovarian cancer Prostate cancer No family history of adverse response to anesthesia Breast cancer Colorectal cancer Social History Smoking Status: Never smoker Second Hand Exposure: No; Hx Alcohol Use: Yes Alcohol type: beer, wine and hard liquor Hx Substance Use: No Preferred Language: Pakistani Communication Ability: Effective Sausage Mixer Required: No Beliefs That Will Affect Care: None marital status: Current Living Situation: Spouse current occupational status: employed Feels Safe at Home: Yes Dental Care, Regularly: Yes Physical Activity Frequency: 5-6 Times per Week Seatbelt Use: always Sunscreen Use: Yes Assistive Devices: Glasses Review of Systems Review of Systems: Constitutional: No fever, sweats or chills Eyes: No diplopia, no worsening or blurred vision ENT: normal hearing, no trouble swallowing Respiratory: No cough, sputum, dyspnea at rest or on exertion Cardiovascular: No chest pain, tightness or palpitations Abdomen: Epigastric pain with radiation to the back and around left flank as described above. Nonausea, vomiting, diarrhea or constipation Musculoskeletal: No joint pain, calf pain, swelling Neurologic: No weakness, numbness/tingling, or balance problems Psychiatric: No anxiety or depression Skin: no rash or itch Physical Exam Physical Exam: General: awake, alert, no apparent distress Head: Normocephalic, atraumatic ENT: PERRL, EOMI, no pharyngeal exudate, mucous membranes moist Chest: Clear to auscultation, on room air, no adventitious breath sounds Cardiac: Regular rate and rhythm, no murmur, no JVD, normal peripheral pulses, good capillary refill Abdominal: Mildly tender palpation in epigastric region and right upper quadrant without rebound pain or guarding, Negative [place] sign, pool technician sign, NABS x 4 quadrants, soft. Extremities: Normal inspection, no peripheral edema or erythema, calfs nontender to palpation Psych: Normal mood and affect Neuro: AAO x 3, strength intact bilaterally and rated 5/5, no motor deficits, speech is clear, no peripheral sensory deficits Skin: no rash or erythema Results & Data Results & Data ([facility]) Vital Signs (Past 12 Hours) Vital Signs Temp Pulse Resp BP Pulse Ox 07/21/21 09:50 71 16 92 07/21/21 09:40 81 18 92 07/21/21 09:30 75 17 148/89 H 91 07/21/21 09:20 71 17 95 07/21/21 09:10 74 21 95 07/21/21 09:00 67 18 158/93 H 95 07/21/21 08:50 71 18 97 07/21/21 08:42 79 16 160/85 H 94 07/21/21 08:20 73 18 94 07/21/21 08:10 76 19 91 07/21/21 08:00 75 13 151/93 H 95 07/21/21 07:50 78 13 95 07/21/21 07:40 81 15 94 07/21/21 07:34 81 20 94 07/21/21 07:09 37.0 C 88 20 165/99 H 94 Laboratory Results Abnormal lab results 07/21/21 07/21/21 07/21/21 Range/Units 07:40 07:40 07:53 WBC 10.95 H (4.8-10.8) K/uL MPV 11.0 H (7.4-10.4) fL Neut # (Auto) 9.02 H (1.4-6.5) K/uL Lymph # (Auto) 1.05 L (1.2-3.4) K/uL [place] # (Auto) 0.85 H (0.11-0.59) K/uL POC BUN 19 H (7-18) mg/dl BUN/Creatinine Ratio 20.9 H (10-20) Glucose 123 H (70-99(Fasting)) mg/dl POC Glucose (other) 130 H (70-99) mg/dl Lipase 277 H (11-82) U/L Ur Specific [place] (1.000-1.030) Urine Blood (Negative) Urine RBC (Auto) (0-4) /hpf 07/21/21 Range/Units 08:57 WBC (4.8-10.8) K/uL MPV (7.4-10.4) fL Neut # (Auto) (1.4-6.5) K/uL Lymph # (Auto) (1.2-3.4) K/uL [place] # (Auto) (0.11-0.59) K/uL POC BUN (7-18) mg/dl BUN/Creatinine Ratio (10-20) Glucose (70-99(Fasting)) mg/dl POC Glucose (other) (70-99) mg/dl Lipase (11-82) U/L Ur Specific [place] 1.039 H (1.000-1.030) Urine Blood Trace H (Negative) Urine RBC (Auto) 10-30 H (0-4) /hpf Diagnostic Findings Abdomen/Pelvis CT 07/21/21 07:24 CT OF THE ABDOMEN AND PELVIS WITH CONTRAST CLINICAL HISTORY: Epigastric and mid abdominal pain. COMPARISON STUDY: Renal ultrasound May 03, 2008. TECHNIQUE: Following IV administration of 95 mL of Optiray, axial images of the abdomen and pelvis were obtained from the lung bases to the proximal femurs. Images were reviewed in the axial, sagittal, and coronal planes. IV contrast was administered without complication. Automated exposure control was utilized for the study. A dose lowering technique was utilized adhering to the principles of ALARA. CT DOSE: 341.44 mGy.cm FINDINGS: Ground glass opacities within the lower lungs represent atelectasis. No pneumatosis, free air or portal venous gas is present. There is probable hepatic steatosis. No biliary or pancreatic ductal dilatation is noted. Note is made of moderate stranding and fluid centered on the pancreatic tail and body. Hypodensity within the pancreatic tail is noted. No well-defined lesion is present. There is no peripancreatic fluid collection. There is no evidence for a bowel obstruction. Caliber and wall thickness of small and large bowel are normal. Colonic diverticulosis is noted without evidence for acute diverticulitis. Moderate amount of stool within the colon is noted. Prostate is enlarged, measuring 5.7 cm in transverse dimension. There is no hydronephrosis. Multiple left renal cysts measure up to 5.7 cm. Major vasculature is patent. No acute fracture or suspicious lesion is identified within visualized skeletal structures. There is no abdominal or pelvic lymphadenopathy. IMPRESSION: 1. Moderate stranding and fluid centered on the pancreatic tail and body suggestive of acute pancreatitis. No peripancreatic fluid collection. Hypodensity within the pancreatic tail related to acute pancreatitis. A CT of the abdomen 3 months is recommended to ensure resolution and exclude the unlikely possibility of an underlying pancreatic lesion. 2. Probable hepatic steatosis. 3. No biliary or pancreatic ductal dilatation. Medications Administered Home Medications Medication Instructions Recorded Confirmed Type famotidine 20 mg tablet (Pepcid) 20 mg PO QAM 07/19/18 07/21/21 History fexofenadine 60 mg tablet 60 mg PO BID 07/19/18 07/21/21 History multivitamin 1 tab PO QAM 07/19/18 07/21/21 History triamcinolone acetonide 55 mcg 1 spray INTRANASAL HS 07/19/18 07/21/21 History nasal spray aerosol (Nasacort) cholecalciferol (vitamin D3) 50 50 mcg PO QAM 04/09/21 07/21/21 History mcg (2,000 unit) capsule omeprazole 20 mg tablet,delayed 20 mg PO DAILY@1600 07/21/21 07/21/21 History release Home Medications Medication Instructions Recorded Confirmed Last Taken famotidine 20 mg tablet (Pepcid) 20 mg PO QAM 07/19/18 07/21/21 07/20/21 fexofenadine 60 mg tablet 60 mg PO BID 07/19/18 07/21/21 07/20/21 multivitamin 1 tab PO QA 07/19/18 07/21/21 07/20/21 triamcinolone acetonide 55 mcg 1 spray INTRANASAL 07/19/18 07/21/21 07/20/21 nasal spray aerosol (Nasacort) albuterol sulfate 90 mcg/actuation 1 inh INHALATION QID PRN #18 g 03/13/20 07/21/21 Unknown aerosol inhaler (Ventolin HFA) zolpidem 5 mg tablet 5 mg PO HS PRN #90 tab 10/09/20 07/21/21 07/18/21 2.5mg cholecalciferol (vitamin D3) 50 50 mcg PO QAM 04/09/21 07/21/21 07/20/21 mcg (2,000 unit) capsule omeprazole 20 mg tablet,delayed 20 mg PO DAILY@1600 07/21/21 07/21/21 07/20/21 release Current Medications Hydromorphone HCl (Hydromorphone Inj 0.5 Mg/0.5 Ml Syr) 0.5 mg IV Q15M PRN PRN Reason: Pain Stop: 08/04/21 09:12 Lactated Ringer's (Lr) 1,000 mls @ 125 mls/hr IV .Q8H ANNE-MARIE Stop: 08/20/21 10:44 Polyethylene Glycol (Polyethylene (Miralax) 17 Gm Pack) 17 gm PO DAILY PRN PRN Reason: Constipation Stop: 08/20/21 10:44 PG Care Time/CCT Total # of Minutes Spent Total Time Spent with Patient: Total time spent is greater than 50% in coordination of care (as documented) at patient's floor/unit and/or counseling patient: Coding Diagnoses Acute pancreatitis K85.90 Acute pancreatitis complication: no infection or necrosis Pancreatitis type: unspecified pancreatitis type Prediabetes R73.03 GERD (gastroesophageal reflux disease) K21.9 Seasonal allergies J30.2 (1) Acute pancreatitis Acute pancreatitis complication: no infection or necrosis Pancreatitis type: unspecified pancreatitis type Qualified Code(s): K85.90 - Acute pancreatitis without necrosis or infection, unspecified
[2021-07-21] MEDS: LACTATED RINGER'S 1,000 ML IV SCH ×2 (11:15→19:37)
--- NOTE | 2021-07-21 11:30 | History & Physical Report ---
Date of Service July 21, 2021 Assessment & Plan (1) Acute pancreatitis: Plan: -Causes likely related to alcohol intake. Patient reports drinking a bottle of wine last night with his , drinks 1 to 2 glasses of alcohol each night. No gallstones visualized on CT. Triglyceride level is 50. Patient not on any medications known to cause pancreatitis. No recent traumas to the abdomen. -Lipase 277. WBC 10.9. -CT showed moderate stranding and fluid centered on the pancreatic tail and body suggestive of acute pancreatitis. No peripancreatic fluid collection. Hypodensity within the pancreatic tail related to acute pancreatitis. -Oxycodone 5 mg every 4 as needed for moderate pain. Dilaudid 0.5 mg IV every 4 for severe pain. -CV 1 L fluid bolus in ED. Continue LRs at 125cc/hr as well as low fat diet as tolerated. May advance diet as tolerated. -Will need a follow-up appointment with GI scheduled prior to discharge for follow-up CT imaging in 3 months. -Repeat CBC and BMP in a.m. (2) Prediabetes: Plan: -HbA1c in March was 5.7. Glucose today is mildly elevated at 123. -Not on any home medications, no changes or further intervention recommended. (3) GERD (gastroesophageal reflux disease): Plan: -Continue H2 vargas and PPI. (4) Seasonal allergies: Plan: -Continue home medications are prescribed. (5) Asymptomatic microscopic hematuria: Plan: -SCDs ordered -Lovenox 40mg SQ daily History of Present Illness Chief Complaint: Epigastric pain. Primary Care Provider: Wayne Coleman MD Patient is 70-year-old male with past medical history of GERD, prediabetes, seasonal allergies, and insomnia who presents this morning with epigastric pain that has been going on since last evening. Patient states he was sharing meal with his consisting of wine, crackers and crab cakes. Shortly after finishing the meal he developed epigastric pain that was sharp and stabbing in nature, radiating to his back and around his right upper quadrant in a bandlike fashion. Patient also felt gassy, initially thought he was constipated. Took some Gas-X and tried to have a bowel movement which he was successful in, however this did not alleviate his pain. Pain is worse with movement coughing, alleviated with rest. Pain severity and character has been constant since its onset last evening, 7 at worst and now 4 after receiving pain medications in the ED. He had been drinking water at home without any nausea or vomiting. Also denies chest pain, palpitations, shortness of breath, fever/chills,abdominal pain other than as stated above, urinary symptoms, diarrhea, constipation. Patient states he drinks 1 to 2 glasses of alcohol every night. Has never experienced pain like this before. Labs in ED showed elevated WBC at 10, lipase 277, otherwise all labs within normal limits. Abdominal CT showed moderate stranding and fluid centered on the pancreatic tail and body suggestive of acute pancreatitis. No peripancreatic fluid collection. Hypodensity within the pancreatic tail related to acute pancreatitis. Patient is hypertensive likely due to pain, all other vital signs stable and within normal limits. BISAP score of 1, patient gets one-point for age greater than 60. Allergies Allergy/AdvReac Type Severity Reaction Status Date / Time latex Allergy Unknown ITCHING Verified 07/21/21 08:16 Home Medications Medication Instructions Recorded Confirmed Type famotidine 20 mg tablet (Pepcid) 20 mg PO QAM 07/19/18 07/21/21 History fexofenadine 60 mg tablet 60 mg PO BID 07/19/18 07/21/21 History multivitamin 1 tab PO QAM 07/19/18 07/21/21 History triamcinolone acetonide 55 mcg 1 spray INTRANASAL HS 07/19/18 07/21/21 History nasal spray aerosol (Nasacort) albuterol sulfate 90 mcg/actuation 1 inh INHALATION QID PRN #18 g 03/13/20 07/21/21 Rx aerosol inhaler (Ventolin HFA) zolpidem 5 mg tablet 5 mg PO HS PRN #90 tab 10/09/20 07/21/21 Rx cholecalciferol (vitamin D3) 50 50 mcg PO QAM 04/09/21 07/21/21 History mcg (2,000 unit) capsule omeprazole 20 mg tablet,delayed 20 mg PO DAILY@1600 07/21/21 07/21/21 History release Past Med/Surg History Medical History Adenomatous polyp of colon GERD (gastroesophageal reflux disease) Insomnia Prediabetes Seasonal allergies Surgical History History of colonoscopy History of esophagogastroduodenoscopy (EGD) History of root canal procedure History of wisdom tooth extraction Family History Father Diabetes Myocardial infarction Denies family history of Ovarian cancer Prostate cancer No family history of adverse response to anesthesia Breast cancer Colorectal cancer Social History Smoking Status: Never smoker Second Hand Exposure: No; Hx Alcohol Use: Yes Alcohol type: beer, wine and hard liquor Hx Substance Use: No Preferred Language: Macedonian Communication Ability: Effective Production Specialist Required: No Beliefs That Will Affect Care: None marital status: Current Living Situation: Spouse current occupational status: employed Feels Safe at Home: Yes Dental Care, Regularly: Yes Physical Activity Frequency: 5-6 Times per Week Seatbelt Use: always Sunscreen Use: Yes Assistive Devices: Glasses Review of Systems Review of Systems: Constitutional: No fever, sweats or chills Eyes: No diplopia, no worsening or blurred vision ENT: normal hearing, no trouble swallowing Respiratory: No cough, sputum, dyspnea at rest or on exertion Cardiovascular: No chest pain, tightness or palpitations Abdomen: Reports epigastric pain with radiation to the back; without nausea, vomiting, diarrhea or constipation Musculoskeletal: No joint pain, calf pain, swelling Neurologic: No weakness, numbness/tingling, or balance problems Psychiatric: No anxiety or depression Skin: No rash or itch Physical Exam Physical Exam: General: awake, alert, no apparent distress Head: Normocephalic, atraumatic ENT: PERRL, EOMI, no pharyngeal exudate, mucous membranes moist Chest: Clear to auscultation, on room air, no adventitious breath sounds Cardiac: Regular rate and rhythm, no murmur, no JVD, normal peripheral pulses, good capillary refill Abdominal: Epigastric pain with radiation to back without rebound, guarding. Negative Vancouver's and Calderon sign; NABSx 4 quadrants, soft. Extremities: Normal inspection, no peripheral edema or erythema, calfs nontender to palpation Psych: Normal mood and affect Neuro: AAO x 3, strength intact bilaterally and rated 5/5, no motor deficits, speech is clear, no peripheral sensory deficits Skin: no rash or erythema Results & Data Results & Data ([facility]) Vital Signs (Past 12 Hours) Vital Signs Temp Pulse Resp BP Pulse Ox 07/21/21 09:50 71 16 92 07/21/21 09:40 81 18 92 07/21/21 09:30 75 17 148/89 H 91 07/21/21 09:20 71 17 95 07/21/21 09:10 74 21 95 07/21/21 09:00 67 18 158/93 H 95 07/21/21 08:50 71 18 97 07/21/21 08:42 79 16 160/85 H 94 07/21/21 08:20 73 18 94 07/21/21 08:10 76 19 91 07/21/21 08:00 75 13 151/93 H 95 07/21/21 07:50 78 13 95 07/21/21 07:40 81 15 94 07/21/21 07:34 81 20 94 07/21/21 07:09 37.0 C 88 20 165/99 H 94 Laboratory Results Abnormal lab results 07/21/21 07/21/21 07/21/21 Range/Units 07:40 07:40 07:53 WBC 10.95 H (4.8-10.8) K/uL MPV 11.0 H (7.4-10.4) fL Neut # (Auto) 9.02 H (1.4-6.5) K/uL Lymph # (Auto) 1.05 L (1.2-3.4) K/uL [place] # (Auto) 0.85 H (0.11-0.59) K/uL POC BUN 19 H (7-18) mg/dl BUN/Creatinine Ratio 20.9 H (10-20) Glucose 123 H (70-99(Fasting)) mg/dl POC Glucose (other) 130 H (70-99) mg/dl Lipase 277 H (11-82) U/L Ur Specific Moody (1.000-1.030) Urine Blood (Negative) Urine RBC (Auto) (0-4) /hpf 07/21/21 Range/Units 08:57 WBC (4.8-10.8) K/uL MPV (7.4-10.4) fL Neut # (Auto) (1.4-6.5) K/uL Lymph # (Auto) (1.2-3.4) K/uL [place] # (Auto) (0.11-0.59) K/uL POC BUN (7-18) mg/dl BUN/Creatinine Ratio (10-20) Glucose (70-99(Fasting)) mg/dl POC Glucose (other) (70-99) mg/dl Lipase (11-82) U/L Ur Specific Moody 1.039 H (1.000-1.030) Urine Blood Trace H (Negative) Urine RBC (Auto) 10-30 H (0-4) /hpf Diagnostic Findings Abdomen/Pelvis CT 07/21/21 07:24 CT OF THE ABDOMEN AND PELVIS WITH CONTRAST CLINICAL HISTORY: Epigastric and mid abdominal pain. COMPARISON STUDY: Renal ultrasound May 03, 2008. TECHNIQUE: Following IV administration of 95 mL of Optiray, axial images of the abdomen and pelvis were obtained from the lung bases to the proximal femurs. Images were reviewed in the axial, sagittal, and coronal planes. IV contrast was administered without complication. Automated exposure control was utilized for the study. A dose lowering technique was utilized adhering to the principles of ALARA. CT DOSE: 341.44 mGy.cm FINDINGS: Ground glass opacities within the lower lungs represent atelectasis. No pneumatosis, free air or portal venous gas is present. There is probable hepatic steatosis. No biliary or pancreatic ductal dilatation is noted. Note is made of moderate stranding and fluid centered on the pancreatic tail and body. Hypodensity within the pancreatic tail is noted. No well-defined lesion is present. There is no peripancreatic fluid collection. There is no evidence for a bowel obstruction. Caliber and wall thickness of small and large bowel are normal. Colonic diverticulosis is noted without evidence for acute diverticulitis. Moderate amount of stool within the colon is noted. Prostate is enlarged, measuring 5.7 cm in transverse dimension. There is no hydronephrosis. Multiple left renal cysts measure up to 5.7 cm. Major vasculature is patent. No acute fracture or suspicious lesion is identified within visualized skeletal structures. There is no abdominal or pelvic lymphadenopathy. IMPRESSION: 1. Moderate stranding and fluid centered on the pancreatic tail and body suggestive of acute pancreatitis. No peripancreatic fluid collection. Hypodensity within the pancreatic tail related to acute pancreatitis. A CT of the abdomen 3 months is recommended to ensure resolution and exclude the unlikely possibility of an underlying pancreatic lesion. 2. Probable hepatic steatosis. 3. No biliary or pancreatic ductal dilatation. Medications Administered Home Medications Medication Instructions Recorded Confirmed Type famotidine 20 mg tablet (Pepcid) 20 mg PO QAM 07/19/18 07/21/21 History fexofenadine 60 mg tablet 60 mg PO BID 07/19/18 07/21/21 History multivitamin 1 tab PO QAM 07/19/18 07/21/21 History triamcinolone acetonide 55 mcg 1 spray INTRANASAL HS 07/19/18 07/21/21 History nasal spray aerosol (Nasacort) cholecalciferol (vitamin D3) 50 50 mcg PO QAM 04/09/21 07/21/21 History mcg (2,000 unit) capsule omeprazole 20 mg tablet,delayed 20 mg PO DAILY@1600 07/21/21 07/21/21 History release Current Medications Hydromorphone HCl (Hydromorphone Inj 0.5 Mg/0.5 Ml Syr) 0.5 mg IV Q15M PRN PRN Reason: Pain Stop: 08/04/21 09:12 Last Admin: 07/21/21 11:18 Dose: 0.5 mg Documented by: Lactated Ringer's (Lr) 1,000 mls @ 125 mls/hr IV .Q8H ANNE-MARIE Stop: 08/20/21 10:44 Last Admin: 07/21/21 11:15 Dose: 125 mls/hr Documented by: Polyethylene Glycol (Polyethylene (Miralax) 17 Gm Pack) 17 gm PO DAILY PRN PRN Reason: Constipation Stop: 08/20/21 10:44 ECG Indication: abdominal pain Rate (beats per minute): 83 Rhythm: normal sinus Findings: no acute ischemic change Comparison ECG Date: from (Aug 16, 2003) Change: no significant change Code Status & VTE Plan Code Status Full code. Supervising Physician Co-Signing Physician Notes I personally saw and examined the patient. I verified all stevenson points and agree with Chaya Beaver PA-C with the following exceptions and/or additions: 70 year old male admission for sudden onset epigastric pain. Current severity 7/10 before second dose of Dilaudid just given. Associated nausea when the pain comes back. Not yet had any oral intake in the ER and continuing to require intravenous pain medications. O/E Alert and orientated x3, no acute distress, Chest CTAB, Abdo - epigastric tenderness without guarding or rebound tenderness, no CVA tenderness A/P Acute pancreatitis - meets criteria due to changes on CT and epigastric pain on exam despite non-impressive lipase. Suspect alcohol induced given normal triglycerides and biliary dilatation/LFTs. No medications listed as possible cause. Sumanth's criteria pending with LDH but appears to be at low risk for severe pancreatitis. Agree with LR and pain management as above. Advance diet as tolerated. Microscopic hematuria - recommend repeat UA + micro once well in 4-6 weeks with PCP. If persistently positive consider referral to urology. PG Care Time/CCT Total # of Minutes Spent Total Time Spent with Patient: Total time spent is greater than 50% in coordination of care (as documented) at patient's floor/unit and/or counseling patient: Coding Level of Care Code 32378 Initial Inpt Care Lvl 2 Diagnoses Acute pancreatitis K85.90 Acute pancreatitis complication: no infection or necrosis Pancreatitis type: unspecified pancreatitis type Prediabetes R73.03 GERD (gastroesophageal reflux disease) K21.9 Seasonal allergies J30.2 Asymptomatic microscopic hematuria R31.21 (1) Acute pancreatitis Acute pancreatitis complication: no infection or necrosis Pancreatitis type: unspecified pancreatitis type Qualified Code(s): K85.90 - Acute pancreatitis without necrosis or infection, unspecified
--- NOTE | 2021-07-21 11:57 | Electrocardiogram Report ---
Test Reason : Blood Pressure : / mmHG Vent. Rate : 083 BPM Atrial Rate : 083 BPM P-R Int : 176 ms QRS Dur : 088 ms QT Int : 380 ms P-R-T Axes : 071 030 021 degrees QTc Int : 446 ms Normal sinus rhythm Normal ECG When compared with ECG of 16-AUG-2003 13:39, No significant change was found Confirmed by Wayne Leon ([id number]) on 07/21/2021 11:56:58 AM Referred By: REFERRED SELF Confirmed By:Wayne Leon
[2021-07-21] MEDS ORDERED: ALBUTEROL HFA 8 GM INHALER INH PRN (14:50)
[2021-07-21] MEDS ORDERED: ONDANSETRON INJ 2 MG/ML 2 ML VIAL IV PRN (14:50)
[2021-07-21] MEDS ORDERED: ZOLPIDEM TARTRATE 5 MG TAB PO PRN (14:50)
[2021-07-21] MEDS: oxyCODONE HCL IR 5 MG TAB (IMMEDIATE RELEASE) PO PRN ×2 (15:27→23:53)
[2021-07-21] MEDS: FEXOFENADINE 60 MG TAB PO SCH ×2 (16:44→20:53)
[2021-07-21] MEDS: FAMOTIDINE 20 MG TAB PO SCH (16:44)
[2021-07-21] MEDS: PANTOprazole 40 MG TAB PO SCH (16:44)
[2021-07-21] MEDS: HYDROmorphone INJ 0.5 MG/0.5 ML SYR IV PRN ×2 (17:03→20:55)
[2021-07-21] MEDS: TRIAMCINOLONE ACET NASAL SPRAY 10.8ML BTL SCH (20:52)
[2021-07-21] MEDS: ENOXAPARIN INJ 40 MG/0.4 ML SYR SQ SCH (20:52)
[2021-07-22] MEDS: LACTATED RINGER'S 1,000 ML IV SCH ×3 (03:24→17:38)
[2021-07-22] MEDS: HYDROmorphone INJ 0.5 MG/0.5 ML SYR IV PRN (05:09)
[2021-07-22 06:36] LABS: Basophils # (auto) 0.01 K/uL (0-0.2); Basophils % (auto) 0.1 %; Hematocrit (blood only) 44.7 % (42-52); Hemoglobin 15.2 g/dL (14.0-18.0); Immature Granulocytes # (auto) 0.05 K/uL (0.00-0.02); Immature Granulocytes % (auto) 0.3 %; Lymphocytes # (auto) 1.16 K/uL (1.2-3.4); Lymphocytes % (auto) 8.1 %; Mean Corpuscular Hemoglobin 29.9 pg (25-34); Mean Platelet Volume 11.5 fL (7.4-10.4); Monocytes # (auto) 1.67 K/uL (0.11-0.59); Monocytes % (auto) 11.6 %; Neutrophils # (auto) 11.47 K/uL (1.4-6.5); Neutrophils % (auto) 79.9 %; Platelet Count 213 K/uL (130-400); RDW Coefficient of Variation 13.8 % (11.5-14.5); RDW Standard Deviation 44.7 fL (36.4-46.3); Red Blood Count 5.08 M/uL (4.7-6.1); White Blood Count 14.36 K/uL (4.8-10.8)
[2021-07-22 07:10] LABS: BUN Creatinine Ratio 14.9 (10-20); Calcium 8.5 mg/dl (8.5-10.1); Creatinine Clr Calc Pharmacy 76.4 ml/min; Est GFR (African American) 101.3 ml/min; Est GFR (Non-African American) 87.4 ml/min; Potassium 3.6 mmol/L (3.5-5.1)
[2021-07-22] MEDS: ACETAMINOPHEN 325 MG TAB PO PRN ×3 (08:07→19:40)
[2021-07-22] MEDS: FEXOFENADINE 60 MG TAB PO SCH ×2 (08:08→20:32)
[2021-07-22] MEDS: oxyCODONE HCL IR 5 MG TAB (IMMEDIATE RELEASE) PO PRN ×3 (08:08→21:33)
[2021-07-22] MEDS: FAMOTIDINE 20 MG TAB PO SCH (08:08)
--- NOTE | 2021-07-22 11:44 | Hospitalist Progress Note ---
Date of Service July 22, 2021 Assessment & Plan (1) Acute pancreatitis: Plan: -Causes likely related to alcohol intake. Patient reports drinking a bottle of wine last night with his , drinks 1 to 2 glasses of alcohol each night. No gallstones visualized on CT. Triglyceride level is 50. Patient not on any medications known to cause pancreatitis. No recent traumas to the abdomen. -Lipase 277. WBC 10.9. -CT showed moderate stranding and fluid centered on the pancreatic tail and body suggestive of acute pancreatitis. No peripancreatic fluid collection. Hypodensity within the pancreatic tail related to acute pancreatitis. -Oxycodone 5 mg every 4 as needed for moderate pain. Dilaudid 0.5 mg IV every 4 for severe pain. -CV 1 L fluid bolus in ED. Continue LRs at 100cc/hr as well as low fat diet as tolerated. May advance diet as tolerated. -Will need a follow-up appointment with GI scheduled prior to discharge for follow-up CT imaging in 3 months. - Bilirubin increased however ALP normal. Given fever will get US liver to make sure no biliary dilatation. (2) Prediabetes: Plan: -HbA1c in March was 5.7. Glucose today is mildly elevated at 123. -Not on any home medications, no changes or further intervention recommended. (3) GERD (gastroesophageal reflux disease): Plan: -Continue H2 vargas and PPI. (4) Seasonal allergies: Plan: -Continue home medications are prescribed. (5) Asymptomatic microscopic hematuria: Plan: -SCDs ordered -Lovenox 40mg SQ daily Admission and Anticipated Discharge Date Admission Date: July 21, 2021 Subjective Pain severity 4/10, improving. No nausea or vomiting. Fever this morning 38 degrees celsius. No respiratory of urinary symptoms. Review of Systems Review of Systems: All systems reviewed & are unremarkable except as noted in Subjective Physical Exam Constitutional: WD/WN, vitals as above ENMT: external ear and nose normal, oropharynx normal Neck: trachea midline, no thyromegaly Respiratory: normal respiratory effort, lungs clear to auscultation Cardiovascular: RRR, no murmur, no edema Gastrointestinal (Abdomen): Inspection/Auscultation: normal bowel sounds Percussion/Palpation: abdomen soft; abdomen nontender, no guarding and abdomen not rigid Musculoskeletal: no cyanosis or clubbing, extremities motor strength 5/5 Skin: no rashes, warm and dry Neurologic: moves all extremities and awake; not confused Psychiatric: A+Ox3, euthymic affect Results & Data Results & Data ([facility]) Vital Signs (Past 12 Hours) Vital Signs Temp Pulse Resp BP Pulse Ox 07/22/21 07:45 38 C H 86 16 137/71 91 PG Care Time/CCT Total # of Minutes Spent Total Time Spent with Patient: Total time spent is greater than 50% in coordination of care (as documented) at patient's floor/unit and/or counseling patient: Coding Level of Care Code 24897 Subseq Hosp Care Lvl 2 Diagnoses Acute pancreatitis K85.90 Acute pancreatitis complication: no infection or necrosis Pancreatitis type: unspecified pancreatitis type Prediabetes R73.03 GERD (gastroesophageal reflux disease) K21.9 Seasonal allergies J30.2 Asymptomatic microscopic hematuria R31.21 (1) Acute pancreatitis Acute pancreatitis complication: no infection or necrosis Pancreatitis type: unspecified pancreatitis type Qualified Code(s): K85.90 - Acute pancreatitis without necrosis or infection, unspecified
[2021-07-22] MEDS ORDERED: POLYETHYLENE (MIRALAX) 17 GM PACK PO ONE (12:00)
[2021-07-22 12:58] LABS: Albumin Level 3.9 gm/dl (3.4-5.0); Bilirubin Direct 0.5 mg/dl (0-0.2); Total Protein 6.4 gm/dl (6.0-8.3)
--- NOTE | 2021-07-22 14:47 | XRay Report ---
XR chest 2V PA/lateral HISTORY: fever COMPARISON: Chest 04/09/2021. FINDINGS: No pneumothorax. The heart is normal in size. The right lung is clear. There is a trace lef t pleural effusion. Left basilar linear densities are also noted. The left upper lung zone is clear. IMPRESSION: Trace left pleural effusion with associated left basilar linear densities. This may represent atelect asis or a pneumonia. Recommend follow-up to ensure resolution. ACT 112: Negative or not required by law. Electronically signed by: William Bashir M.D. 07/22/2021 2:45 PM
[2021-07-22] MEDS: PANTOprazole 40 MG TAB PO SCH (16:03)
[2021-07-22] MEDS: SIMETHICONE 80 MG CHEW PO PRN ×2 (16:03→23:03)
--- NOTE | 2021-07-22 16:11 | Ultrasound Report ---
US liver HISTORY: 70 years-old Male pancretitis, increasing bilirubin acute generalized abdominal pain with p ancreatitis COMPARISON: CT abdomen and pelvis 07/21/2021 TECHNIQUE: Multiple real-time sonographic images of the abdominal right upper quadrant were obtained assessing grayscale appearance and color flow FINDINGS: The pancreas is obscured by bowel gas. There is increased echogenicity of the liver suggestive of hepatic steatosis with probable focal fatt y sparing the sydnee hepatis measuring up to 1.4 cm. No marginal nodularity to suggest cirrhosis. Gallbladder sludge is noted without shadowing cholelithiasis or gallbladder wall thickening. No peric holecystic fluid identified. Normal common bile duct measures 4 mm. The imaged right kidney is unremarkable without hydronephrosis. IMPRESSION: 1. Limited study secondary to obscuring bowel gas. The pancreas is not diagnostically visualized. 2. Gallbladder sludge without cholelithiasis or sonographic evidence of acute cholecystitis 3. Hepatic steatosis. ACT 112: Negative or not required by law. The above report was generated using voice recognition software. It may contain grammatical, syntax o r spelling errors. Electronically signed by: Mundo Mayers M.D. 07/22/2021 4:09 PM
[2021-07-22] MEDS: ENOXAPARIN INJ 40 MG/0.4 ML SYR SQ SCH (20:32)
[2021-07-22] MEDS: TRIAMCINOLONE ACET NASAL SPRAY 10.8ML BTL SCH (20:33)
[2021-07-23] MEDS: LACTATED RINGER'S 1,000 ML IV SCH ×3 (00:12→16:31)
[2021-07-23] MEDS: oxyCODONE HCL IR 5 MG TAB (IMMEDIATE RELEASE) PO PRN ×5 (04:01→22:40)
[2021-07-23 06:24] LABS: Basophils # (auto) 0.01 K/uL (0-0.2); Basophils % (auto) 0.1 %; Eosinophils # (auto) 0.01 K/uL (0-0.5); Eosinophils % (auto) 0.1 %; Hematocrit (blood only) 40.5 % (42-52); Hemoglobin 13.5 g/dL (14.0-18.0); Immature Granulocytes # (auto) 0.02 K/uL (0.00-0.02); Immature Granulocytes % (auto) 0.2 %; Lymphocytes # (auto) 1.16 K/uL (1.2-3.4); Lymphocytes % (auto) 9.1 %; Mean Corpuscular Hemoglobin 29.4 pg (25-34); Mean Corpuscular Hgb Conc 33.3 g/dL (32-36); Mean Corpuscular Volume 88.2 fL (80-100); Mean Platelet Volume 11.3 fL (7.4-10.4); Monocytes # (auto) 1.36 K/uL (0.11-0.59); Monocytes % (auto) 10.7 %; Neutrophils # (auto) 10.15 K/uL (1.4-6.5); Neutrophils % (auto) 79.8 %; Platelet Count 174 K/uL (130-400); RDW Coefficient of Variation 13.6 % (11.5-14.5); RDW Standard Deviation 44.1 fL (36.4-46.3); Red Blood Count 4.59 M/uL (4.7-6.1); White Blood Count 12.71 K/uL (4.8-10.8)
[2021-07-23 06:41] LABS: Albumin Globulin Ratio 1.4 (0.9-2); Albumin Level 3.3 gm/dl (3.4-5.0); BUN Creatinine Ratio 19.7 (10-20); Bilirubin,Total 1.9 mg/dl (0.2-1.0); Calcium 8.3 mg/dl (8.5-10.1); Creatinine Clr Calc Pharmacy 87.5 ml/min; Est GFR (African American) 107.1 ml/min; Est GFR (Non-African American) 92.4 ml/min; Globulin 2.3 gm/dl (2.5-4.0); Potassium 3.5 mmol/L (3.5-5.1); Total Protein 5.6 gm/dl (6.0-8.3)
[2021-07-23] MEDS: FEXOFENADINE 60 MG TAB PO SCH ×2 (08:04→22:18)
[2021-07-23] MEDS: ACETAMINOPHEN 325 MG TAB PO PRN ×4 (08:04→22:17)
[2021-07-23] MEDS: FAMOTIDINE 20 MG TAB PO SCH (08:04)
[2021-07-23] MEDS: POLYETHYLENE (MIRALAX) 17 GM PACK PO SCH (08:05)
[2021-07-23] MEDS: SIMETHICONE 80 MG CHEW PO PRN ×3 (08:51→22:20)
--- NOTE | 2021-07-23 11:04 | Hospitalist Progress Note ---
Date of Service July 23, 2021 Assessment & Plan (1) Acute pancreatitis: Plan: -Causes likely related to alcohol intake. Patient reports drinking a bottle of wine last night with his , drinks 1 to 2 glasses of alcohol each night. No gallstones visualized on CT. Triglyceride level is 50. Patient not on any medications known to cause pancreatitis. No recent traumas to the abdomen. -Lipase 277. WBC 10.9. -CT showed moderate stranding and fluid centered on the pancreatic tail and body suggestive of acute pancreatitis. No peripancreatic fluid collection. Hypodensity within the pancreatic tail related to acute pancreatitis. -Oxycodone 5 mg every 4 as needed for moderate pain. Dilaudid 0.5 mg IV every 4 for severe pain. -CV 1 L fluid bolus in ED. Continue LRs at 100cc/hr as well as low fat diet as tolerated. May advance diet as tolerated. -Will need a follow-up appointment with GI scheduled prior to discharge for follow-up CT imaging in 3 months. - Bilirubin stable but mildly elevated however ALP normal. WB improving today. - CT and US without biliary ductal dilatation (biliary sludge noted), Blood cultures negative @ 24 hours - discussed case with Dr Menard, patient and his at bedside. If persistent fevers tomorrow will get MRCP, repeat cultures and consult GI. (2) Prediabetes: Plan: -HbA1c in March was 5.7. Glucose today is mildly elevated at 123. -Not on any home medications, no changes or further intervention recommended. (3) GERD (gastroesophageal reflux disease): Plan: -Continue H2 vargas and PPI. (4) Seasonal allergies: Plan: -Continue home medications are prescribed. (5) Asymptomatic microscopic hematuria: Plan: Outpatient follow up UA recommended Plan: -SCDs ordered -Lovenox 40mg SQ daily Admission and Anticipated Discharge Date Admission Date: July 21, 2021 Subjective Diaphoresis and fever this morning. Abdominal pain persistent severity 6/10, relieved with oxycodone to 0/10 and no exacerbation on eating. Epigastric, no radiation. Not yet had BM. No nausea or vomiting. Review of Systems Review of Systems: All systems reviewed & are unremarkable except as noted in Subjective Physical Exam Constitutional: WD/WN, vitals as above ENMT: external ear and nose normal, oropharynx normal Respiratory: normal respiratory effort, lungs clear to auscultation Cardiovascular: RRR, no murmur, no edema Gastrointestinal (Abdomen): Inspection/Auscultation: normal bowel sounds Percussion/Palpation: + abdomen tender (epigastric, no RUQ tenderness) and abdomen soft; no guarding and abdomen not rigid Musculoskeletal: no cyanosis or clubbing, extremities motor strength 5/5 Skin: no rashes, warm and dry Neurologic: moves all extremities and awake; not confused Psychiatric: A+Ox3, euthymic affect Results & Data Results & Data ([facility]) Vital Signs (Past 12 Hours) Vital Signs Temp Pulse Resp BP Pulse Ox 07/23/21 10:07 37.4 C 07/23/21 07:49 38.3 C H 90 16 122/67 90 PG Care Time/CCT Total # of Minutes Spent Total Time Spent with Patient: Total time spent is greater than 50% in coordination of care (as documented) at patient's floor/unit and/or counseling patient: Coding Level of Care Code 36040 Subseq Hosp Care Lvl 2 Diagnoses Acute pancreatitis K85.90 Acute pancreatitis complication: no infection or necrosis Pancreatitis type: unspecified pancreatitis type Prediabetes R73.03 GERD (gastroesophageal reflux disease) K21.9 Seasonal allergies J30.2 Asymptomatic microscopic hematuria R31.21 (1) Acute pancreatitis Acute pancreatitis complication: no infection or necrosis Pancreatitis type: unspecified pancreatitis type Qualified Code(s): K85.90 - Acute pancreatitis without necrosis or infection, unspecified
[2021-07-23] MEDS: PANTOprazole 40 MG TAB PO SCH (16:31)
[2021-07-23] MEDS: TRIAMCINOLONE ACET NASAL SPRAY 10.8ML BTL SCH (22:18)
[2021-07-23] MEDS: ENOXAPARIN INJ 40 MG/0.4 ML SYR SQ SCH (22:18)
[2021-07-24] MEDS: LACTATED RINGER'S 1,000 ML IV SCH ×3 (01:52→22:42)
[2021-07-24] MEDS: oxyCODONE HCL IR 5 MG TAB (IMMEDIATE RELEASE) PO PRN ×5 (03:35→23:24)
[2021-07-24] MEDS: ACETAMINOPHEN 325 MG TAB PO PRN ×4 (07:35→23:23)
[2021-07-24 07:55] LABS: Eosinophils # (auto) 0.07 K/uL (0-0.5); Eosinophils % (auto) 0.7 %; Hematocrit (blood only) 38.4 % (42-52); Hemoglobin 12.8 g/dL (14.0-18.0); Lymphocytes # (auto) 0.96 K/uL (1.2-3.4); Lymphocytes % (auto) 10.2 %; Mean Corpuscular Hemoglobin 29.5 pg (25-34); Mean Corpuscular Hgb Conc 33.3 g/dL (32-36); Mean Corpuscular Volume 88.5 fL (80-100); Mean Platelet Volume 10.8 fL (7.4-10.4); Monocytes # (auto) 0.99 K/uL (0.11-0.59); Monocytes % (auto) 10.6 %; Neutrophils # (auto) 7.36 K/uL (1.4-6.5); Neutrophils % (auto) 78.5 %; Platelet Count 180 K/uL (130-400); RDW Coefficient of Variation 13.7 % (11.5-14.5); RDW Standard Deviation 44.9 fL (36.4-46.3); Red Blood Count 4.34 M/uL (4.7-6.1); White Blood Count 9.38 K/uL (4.8-10.8)
[2021-07-24] MEDS: POLYETHYLENE (MIRALAX) 17 GM PACK PO SCH ×2 (07:55→21:31)
[2021-07-24] MEDS: FAMOTIDINE 20 MG TAB PO SCH (07:56)
[2021-07-24] MEDS: FEXOFENADINE 60 MG TAB PO SCH ×2 (07:56→21:32)
[2021-07-24] MEDS: SIMETHICONE 80 MG CHEW PO PRN ×2 (07:56→14:01)
[2021-07-24 08:23] LABS: Albumin Globulin Ratio 1.2 (0.9-2); Albumin Level 3.1 gm/dl (3.4-5.0); BUN Creatinine Ratio 20.8 (10-20); Bilirubin,Total 1.7 mg/dl (0.2-1.0); Calcium 8.2 mg/dl (8.5-10.1); Creatinine Clr Calc Pharmacy 86.4 ml/min; Est GFR (African American) 106.6 ml/min; Est GFR (Non-African American) 91.9 ml/min; Globulin 2.6 gm/dl (2.5-4.0); Potassium 3.6 mmol/L (3.5-5.1); Total Protein 5.7 gm/dl (6.0-8.3)
--- NOTE | 2021-07-24 09:25 | Gastrointestinal Consultation ---
Date of Consultation July 24, 2021 Assessment & Plan (1) Acute pancreatitis: -Obtain MRCP -Continue to follow bilirubin and LFTs -Further recommendations pending results of testing Supervising Physician Co-Signing Physician Notes I personally evaluated the patient and agree with the findings as documented by JESIKA Oviedo Exam: abd: soft, nt, nd History of Present Illness Reason for Consultation: Pancreatitis Attending Physician: Da Umaña MD History of Present Illness Patient is a 70 year-old male with PMH of GERD, prediabetes, seasonal allergies, and insomnia who is currently admitted with pancreatitis since presenting with epigastric pain. The pain began in the epigastric region and was sharp and stabbing in nature. The pain radiated to the back and around the RUQ quadrant as well. Patient notes he felt full and bloated. When he could not alleviate this discomfort at home, he presented to the ED. No constipation or diarrhea. WBC is now within normal limits. Lipase 277. T bili is 1.7. D Bili 0.5. Labs were otherwise unremarkable. Abdominal CT indicated acute pancreatitis. Patient has a history of 1-2 alcoholic drinks per night. He has no PMH of pancreatitis. Since admission, his pain has continued. He is febrile. An abdominal US indicated gallbladder sludge.No pertinent family history. Lipid panel unremarkable. Allergies Allergy/AdvReac Type Severity Reaction Status Date / Time latex Allergy Unknown ITCHING Verified 07/21/21 08:16 Home Medications Medication Instructions Recorded Confirmed Type famotidine 20 mg tablet (Pepcid) 20 mg PO QAM 07/19/18 07/21/21 History fexofenadine 60 mg tablet 60 mg PO BID 07/19/18 07/21/21 History multivitamin 1 tab PO QAM 07/19/18 07/21/21 History triamcinolone acetonide 55 mcg 1 spray INTRANASAL HS 07/19/18 07/21/21 History nasal spray aerosol (Nasacort) albuterol sulfate 90 mcg/actuation 1 inh INHALATION QID PRN #18 g 03/13/20 07/21/21 Rx aerosol inhaler (Ventolin HFA) zolpidem 5 mg tablet 5 mg PO HS PRN #90 tab 10/09/20 07/21/21 Rx cholecalciferol (vitamin D3) 50 50 mcg PO QAM 04/09/21 07/21/21 History mcg (2,000 unit) capsule omeprazole 20 mg tablet,delayed 20 mg PO DAILY@1600 07/21/21 07/21/21 History release Patient History Medical History Adenomatous polyp of colon GERD (gastroesophageal reflux disease) Insomnia Prediabetes Seasonal allergies Surgical History History of colonoscopy History of esophagogastroduodenoscopy (EGD) History of root canal procedure History of wisdom tooth extraction Family History Father Diabetes Myocardial infarction Denies family history of Ovarian cancer Prostate cancer No family history of adverse response to anesthesia Breast cancer Colorectal cancer Social History Smoking Status: Never smoker Second Hand Exposure: No; Hx Alcohol Use: Yes Alcohol type: wine Hx Substance Use: No Preferred Language: Barbadian Communication Ability: 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 Beliefs That Will Affect Care: None marital status: Current Living Situation: Spouse current occupational status: employed Other Information That Helps Us Care for You: No Feels Safe at Home: Yes Safety Concerns: Feels Safe At This Time Dental Care, Regularly: Yes Physical Activity Frequency: 5-6 Times per Week Seatbelt Use: always Sunscreen Use: Yes Assistive Devices: Glasses Review of Systems Constitutional: no fever and no chills Respiratory: no cough and no dyspnea Cardiovascular: no chest pain Gastrointestinal: + abdominal pain; no diarrhea/loose stools and no blood in stools Musculoskeletal: no problem reported Psychiatric: no problem reported Hematologic / Lymphatic: no unexplained weight loss Physical Exam Constitutional: well developed Neck: normal visual inspection Respiratory: normal respiratory effort Cardiovascular: Rate/Rhythm: regular rate and regular rhythm Gastrointestinal (Abdomen): Inspection/Auscultation: abdomen normal to inspection and normal bowel sounds Percussion/Palpation: + abdomen tender and abdomen soft Musculoskeletal: Head/Neck/Chest: normocephalic Skin: no jaundice Psychiatric: Orientation: alert and oriented x 3 Results & Data ([facility]) Vital Signs (Past 12 Hours) Vital Signs Temp Pulse Resp BP Pulse Ox 07/24/21 09:01 37.4 C 07/24/21 07:33 37.8 C H 78 18 128/75 91 07/23/21 22:02 38.7 C H 84 16 159/83 H 90 PG Care Time/CCT Total # of Minutes Spent Total Time Spent with Patient: Total time spent is greater than 50% in coordination of care (as documented) at patient's floor/unit and/or counseling patient: Coding Level of Care Code 12910 Initial Inpt Care Lvl 3 Diagnoses Acute pancreatitis K85.90 Acute pancreatitis complication: no infection or necrosis Pancreatitis type: unspecified pancreatitis type (1) Acute pancreatitis Acute pancreatitis complication: no infection or necrosis Pancreatitis type: unspecified pancreatitis type Qualified Code(s): K85.90 - Acute pancreatitis without necrosis or infection, unspecified
--- NOTE | 2021-07-24 14:18 | Magnetic Resonance Report ---
MR MRCP HISTORY: 70 years-old Male biliary sludge, pancreatitis acute right upper quadrant abdominal pain wi th reported history of biliary sludge and pancreatitis COMPARISON: CT abdomen and pelvis 07/21/2021 TECHNIQUE: MRCP without the use of IV contrast was obtained according to institutional protocol. FINDINGS: Motion degraded exam. Trace right and small left pleural effusions. Mild left basilar consolidation. Trace abdominal pelvic ascites with soft tissue edema the body wall. Left greater than right renal cysts measure up to 5.8 cm on the left. Left perinephric edema. The visualized spleen, adrenal glands and liver appear unrema rkable. Mild gallbladder distention with suggested biliary sludge. No cholelithiasis or gallbladder w all thickening. There is no intrahepatic or extrahepatic biliary ductal dilation. No choledocholithia sis. No pancreatic ductal dilation or pancreatic divisum identified. Interstitial and peripancreatic edema is redemonstrated with fluid and edema noted within the lesser sac. The previously questioned h ypodense focus of the pancreatic tail is better appreciated on the comparison CT. IMPRESSION: 1. Acute pancreatitis redemonstrated. No acute peripancreatic fluid collection or pancreatic ductal d ilation. 2. Gallbladder sludge. No cholelithiasis or evidence of acute cholecystitis. 3. No intrahepatic or extrahepatic biliary ductal dilation or choledocholithiasis. 4. Trace abdominal ascites with bilateral pleural effusions. ACT 112: Negative or not required by law. The above report was generated using voice recognition software. It may contain grammatical, syntax o r spelling errors. Electronically signed by: Mundo Mayers M.D. 07/24/2021 2:17 PM
[2021-07-24] MEDS: PANTOprazole 40 MG TAB PO SCH (16:28)
--- NOTE | 2021-07-24 16:59 | Hospitalist Progress Note ---
Date of Service July 24, 2021 Assessment & Plan (1) Acute pancreatitis: Plan: Unclear cause given minimal alcohol intake. Concerning continued spikes in fever daily and lack of improvement of abdominal pain suggestive of ongoing inflammation. - MRCP today - gallbladder distension and sludge - I suspect this is more likely the cause of his ongoing pancreatitis than his alcohol intake despite bilirubin and WBC improving without intervention - Appreciate GI consult and planning on ERCP tomorrow. NPO @ midnight. - No RUQ pain to suggest acute cholangitis and bilirubin and WBC improving (likely secondary to pancreatitis alone) therefore holding off antibiotics at the present time. - if spikes another fever > 38 degrees celsius I would repeat blood cultures but current cultures reasuringly negative @ 48 hours - Oxycodone 5 mg every 4 as needed for moderate pain. Dilaudid 0.5 mg IV every 4 for severe pain. - Continue gentle hydration with LR @ 100ml/hr. (2) Asymptomatic microscopic hematuria: Plan: Outpatient follow up UA recommended (3) Prediabetes: Plan: -HbA1c in March was 5.7. -Fasting glucose < 100. No treatment required for this. (4) GERD (gastroesophageal reflux disease): Plan: -Continue H2 vargas and PPI. (5) Seasonal allergies: Plan: -Continue home medications are prescribed. Plan: -SCDs ordered -Lovenox 40mg SQ daily Admission and Anticipated Discharge Date Admission Date: July 21, 2021 Subjective Continued severity 5/10 abdominal pain today, resolves with oxycodone. No nausea or vomiting. Poor appetite. Pain is epigastric. Not yet had a BM. Review of Systems Review of Systems: All systems reviewed & are unremarkable except as noted in Subjective Physical Exam Constitutional: WD/WN, vitals as above ENMT: Mouth: oral mucous membranes not dry Respiratory: normal respiratory effort Gastrointestinal (Abdomen): Inspection/Auscultation: normal bowel sounds Percussion/Palpation: + abdomen tender (epigastric, no RUQ tenderness) and abdomen soft; no guarding and abdomen not rigid Skin: no rashes, warm and dry Neurologic: moves all extremities and awake; not confused Psychiatric: A+Ox3, euthymic affect Results & Data Results & Data ([facility]) Vital Signs (Past 12 Hours) Vital Signs Temp Pulse Resp BP Pulse Ox 07/24/21 13:58 37.7 C H 79 16 141/76 H 92 07/24/21 09:01 37.4 C 07/24/21 07:33 37.8 C H 78 18 128/75 91 PG Care Time/CCT Total # of Minutes Spent Total Time Spent with Patient: Total time spent is greater than 50% in coordination of care (as documented) at patient's floor/unit and/or counseling patient: Coding Level of Care Code 39698 Subseq Hosp Care Lvl 2 Diagnoses Acute pancreatitis K85.90 Acute pancreatitis complication: no infection or necrosis Pancreatitis type: unspecified pancreatitis type Prediabetes R73.03 GERD (gastroesophageal reflux disease) K21.9 Seasonal allergies J30.2 Asymptomatic microscopic hematuria R31.21 (1) Acute pancreatitis Acute pancreatitis complication: no infection or necrosis Pancreatitis type: unspecified pancreatitis type Qualified Code(s): K85.90 - Acute pancreatitis without necrosis or infection, unspecified
[2021-07-24] MEDS ORDERED: POLYETHYLENE (MIRALAX) 17 GM PACK PO STA (17:11)
[2021-07-24] MEDS: ENOXAPARIN INJ 40 MG/0.4 ML SYR SQ SCH (21:32)
[2021-07-24] MEDS: TRIAMCINOLONE ACET NASAL SPRAY 10.8ML BTL SCH (21:33)
[2021-07-25] MEDS: oxyCODONE HCL IR 5 MG TAB (IMMEDIATE RELEASE) PO PRN ×4 (04:21→22:34)
[2021-07-25] MEDS: ACETAMINOPHEN 325 MG TAB PO PRN ×3 (04:22→17:55)
[2021-07-25 06:19] LABS: Basophils # (auto) 0.01 K/uL (0-0.2); Basophils % (auto) 0.1 %; Eosinophils # (auto) 0.08 K/uL (0-0.5); Hematocrit (blood only) 34.7 % (42-52); Hemoglobin 11.7 g/dL (14.0-18.0); Immature Granulocytes # (auto) 0.01 K/uL (0.00-0.02); Immature Granulocytes % (auto) 0.1 %; Lymphocytes # (auto) 0.96 K/uL (1.2-3.4); Mean Corpuscular Hemoglobin 29.5 pg (25-34); Mean Corpuscular Hgb Conc 33.7 g/dL (32-36); Mean Corpuscular Volume 87.6 fL (80-100); Monocytes # (auto) 0.94 K/uL (0.11-0.59); Monocytes % (auto) 11.8 %; Neutrophils # (auto) 5.97 K/uL (1.4-6.5); Platelet Count 227 K/uL (130-400); RDW Coefficient of Variation 13.4 % (11.5-14.5); RDW Standard Deviation 43.8 fL (36.4-46.3); Red Blood Count 3.96 M/uL (4.7-6.1); White Blood Count 7.97 K/uL (4.8-10.8)
[2021-07-25 06:59] LABS: Albumin Globulin Ratio 1.1 (0.9-2); BUN Creatinine Ratio 24.3 (10-20); Bilirubin,Total 1.7 mg/dl (0.2-1.0); Calcium 8.1 mg/dl (8.5-10.1); Est GFR (African American) 110.8 ml/min; Est GFR (Non-African American) 95.6 ml/min; Globulin 2.7 gm/dl (2.5-4.0); Potassium 3.1 mmol/L (3.5-5.1); Total Protein 5.7 gm/dl (6.0-8.3)
--- NOTE | 2021-07-25 07:21 | Anesthesiology Consultation ---
Date of Service July 25, 2021 Assessment & Plan (1) Encounter for pre-operative examination: Chart Review Chart Review: Acceptable Risk for Surgery and Patient NOT seen in Pre Admission Testing Consults Requested none History Surgery Operation Date: 07/25/21 10:55 Proposed Procedures p Endoscopic Ultrasonography Upper - Smith Brewer DO s Endoscopic Retrograde Cholangiopancreato - Smith Brewer DO Height/Weight Height: 5 ft 8 in Weight: 78.154 kg Allergies Allergy/AdvReac Type Severity Reaction Status Date / Time latex Allergy Unknown ITCHING Verified 07/21/21 08:16 Medications Home Medications Medication Instructions Recorded Confirmed Last Taken famotidine 20 mg tablet (Pepcid) 20 mg PO QAM 07/19/18 07/21/21 07/20/21 fexofenadine 60 mg tablet 60 mg PO BID 07/19/18 07/21/21 07/20/21 multivitamin 1 tab PO QAM 07/19/18 07/21/21 07/20/21 triamcinolone acetonide 55 mcg 1 spray INTRANASAL HS 07/19/18 07/21/21 07/20/21 nasal spray aerosol (Nasacort) albuterol sulfate 90 mcg/actuation 1 inh INHALATION QID PRN #18 g 03/13/20 07/21/21 Unknown aerosol inhaler (Ventolin HFA) zolpidem 5 mg tablet 5 mg PO HS PRN #90 tab 10/09/20 07/21/21 07/18/21 2.5mg cholecalciferol (vitamin D3) 50 50 mcg PO QAM 04/09/21 07/21/21 07/20/21 mcg (2,000 unit) capsule omeprazole 20 mg tablet,delayed 20 mg PO DAILY@1600 07/21/21 07/21/21 07/20/21 release Active Medications Generic Name Dose Route Start Last Admin Trade Name Freq PRN Reason Stop Dose Admin Acetaminophen 650 mg 07/21/21 14:50 07/25/21 04:22 Acetaminophen 325 Mg Tab PO 08/20/21 14:49 650 mg Q4H PRN Administration Pain or Fever Enoxaparin Sodium 40 mg 07/21/21 21:00 07/24/21 21:32 Enoxaparin Inj 40 Mg/0.4 Ml Syr SQ 08/20/21 20:59 40 mg QPM ANNE-MARIE Administration Famotidine 20 mg 07/21/21 14:50 07/24/21 07:56 Famotidine 20 Mg Tab PO 08/20/21 14:49 20 mg QAM ANNE-MARIE Administration Fexofenadine HCl 60 mg 07/21/21 14:50 07/24/21 21:32 Fexofenadine 60 Mg Tab PO 08/20/21 14:49 60 mg BID ANNE-MARIE Administration Hydromorphone HCl 0.5 mg 07/21/21 14:50 07/22/21 05:09 Hydromorphone Inj 0.5 Mg/0.5 Ml Syr IV 08/04/21 14:49 0.5 mg Q4 PRN Administration Severe Pain Lactated Ringer's 1,000 mls @ 75 mls/hr 07/21/21 10:45 07/25/21 06:04 Lr IV 08/20/21 10:44 75 mls/hr .[id number] ANNE-MARIE Infusion Oxycodone HCl 5 mg 07/21/21 14:50 07/25/21 04:21 Oxycodone Hcl Ir 5 Mg Tab (Immediate Release) PO 08/04/21 14:49 5 mg Q4 PRN Administration Moderate Pain Pantoprazole Sodium 40 mg 07/21/21 16:00 07/24/21 16:28 Pantoprazole 40 Mg Tab PO 08/20/21 15:59 40 mg DAILY@1600 ANNE-MARIE Administration Protocol Polyethylene Glycol 17 gm 07/21/21 10:45 07/23/21 22:50 Polyethylene (Miralax) 17 Gm Pack PO 08/20/21 10:44 17 gm DAILY PRN Administration Constipation Polyethylene Glycol 17 gm 07/24/21 21:00 07/24/21 21:31 Polyethylene (Miralax) 17 Gm Pack PO 08/23/21 20:59 Not Given BID ANNE-MARIE Simethicone 80 mg 07/22/21 14:46 07/24/21 14:01 Simethicone 80 Mg Chew PO 08/21/21 14:45 80 mg Q6H PRN Administration bloating Triamcinolone Acetonide 1 sprays 07/21/21 21:00 07/24/21 21:33 Triamcinolone Acet Nasal Elaine 10.8ml Btl NA 08/20/21 20:59 1 sprays HS ANNE-MARIE Administration Past Medical History Medical History Adenomatous polyp of colon GERD (gastroesophageal reflux disease) Insomnia Prediabetes Seasonal allergies Past Family History Family History Father Diabetes Myocardial infarction Denies family history of Ovarian cancer Prostate cancer No family history of adverse response to anesthesia Breast cancer Colorectal cancer Past Surgical History Surgical History History of colonoscopy History of esophagogastroduodenoscopy (EGD) History of root canal procedure History of wisdom tooth extraction Social History Smoking Status: Never smoker Hx Alcohol Use: Yes Alcohol type: wine alcohol intake frequency: 0-2 drinks per day Hx Substance Use: No substance use type: does not use Physical Exam Vital Signs Last Vital Signs Temp 98.8 F 07/24/21 22:33 Pulse 65 07/24/21 22:33 Resp 16 07/24/21 22:33 BP 127/70 07/24/21 22:33 Pulse Ox 93 07/24/21 22:33 Testing Laboratory Results 07/25/21 05:20 07/25/21 05:20 Urine Color Yellow 07/21/21 08:57 Urine Appearance Clear (Clear) 07/21/21 08:57 Urine pH 7.5 (4.5-7.5) 07/21/21 08:57 Ur Specific Dixon 1.039 (1.000-1.030) H 07/21/21 08:57 Urine Protein Negative (Negative) 07/21/21 08:57 Urine Glucose (UA) Negative (Negative) 07/21/21 08:57 Urine Ketones Negative (Negative) 07/21/21 08:57 Urine Nitrite Negative (Negative) 07/21/21 08:57 Ur Leukocyte Esterase Negative (Negative) 07/21/21 08:57 Urine WBC (Auto) 0 /hpf (0-5) 07/21/21 08:57 Urine RBC (Auto) 10-30 /hpf (0-4) H 07/21/21 08:57 U Hyaline Cast (Auto) 0 /lpf (0-5) 07/21/21 08:57 U Epithel Cells (Auto) 0-5 /lpf (0-5) 07/21/21 08:57 Urine Bacteria (Auto) Negative (Negative) 07/21/21 08:57 07/22/21 12:08 Aerobic Blood Culture - Preliminary Blood No growth in Aerobic bottle after 48 hours. Anaerobic Blood Culture - Preliminary No growth in Anaerobic bottle after 48 hours. 07/22/21 12:00 Aerobic Blood Culture - Preliminary Blood No growth in Aerobic bottle after 48 hours. Anaerobic Blood Culture - Preliminary No growth in Anaerobic bottle after 48 hours. Electrocardiogram Date: 07/21/21 Findings: + NSR @
[2021-07-25] MEDS: FAMOTIDINE 20 MG TAB PO SCH (07:44)
[2021-07-25] MEDS: FEXOFENADINE 60 MG TAB PO SCH ×2 (07:44→21:17)
--- NOTE | 2021-07-25 08:50 | Gastroenterology Progress Note ---
Date of Service July 25, 2021 Assessment & Plan (1) Acute pancreatitis: Plan: Regarding cause of pancreatitis. There is gallbladder sludge present on imaging and there was a bump in bilirubin - these suggest microlithiasis in the CBD. Also considered is a possible pancreas mass as the MR suggested a hypodense area in the tail. Additionally, he does drink 1-2 ETOH alejandro/day, thus ETOH pancreatitis is considered. (2) Abnormal MRI of the abdomen: Plan: EUS with possible ERCP if indicated today by Dr. Brewer. Continue NPO x meds with sip of water. Further recommendations to follow endoscopy. Admission and Anticipated Discharge Date Admission Date: July 21, 2021 Supervising Physician Co-Signing Physician Notes I saw and evaluated the patient. He presented with pancreatitis. His labs did show an elevation of his bilirubin and endoscopic ultrasound has been requested by his regular GI provider for further evaluation. If he is found to have sludge or stone material within the common bile duct we will plan on doing ERCP today. I discussed the risks and benefits of the procedures with the patient to include bleeding, infection, perforation, pain, pancreatitis and failed biliary cannulation in the event of ERCP. Subjective We were asked to provide EUS, as well as ERCP if indicated for this 70 yr old male. Hx of GERD, prediabetes. Admitted for epigastric pain. Still pain at the end of his analgesic dosing interval. CT with pancreatitis. MRCP suggests a pancreatic tail hypodensity. CT, MRCP and US with gallbladder sludge, no bile duct dilation. Lipase 277->66, T Bili 2.0- >1.7. AST, ALT Alk Phos remain normal. Verified NPO except meds/sip of water with meds - since midnight. Review of Systems Review of Systems: ROS: Gen: denies fevers, weakness Eyes: No eye redness, or pain, no recent vision changes Resp: No SOB, no cough Cardio: No palpitations/irregular beats, no chest pain GI: As per HPI, otherwise (-) : Denies pain on urination Skin: No jaundice, itching or new rashes Physical Exam Constitutional: well developed, + thin and cooperative Eyes: PERRL, conjunctivae normal, anicteric sclerae Respiratory: normal respiratory effort, lungs clear to auscultation Cardiovascular: RRR, no murmur, no edema Gastrointestinal (Abdomen): Inspection/Auscultation: abdomen normal to inspection and + hypoactive bowel sounds; abdomen not distended Percussion/Palpation: + abdomen tender (Moderate epigastric tenderness. No signs of acute abdomen.), + guarding and abdomen soft; abdomen not rigid Skin: no rashes, warm and dry normal turgor and + pallor Neurologic: PERRL, EOMI, accommodation nl, no face palsy, no dysarthria awake; not confused Psychiatric: A+Ox3, euthymic affect Lymphatic: no cervical or axillary lymphadenopathy Results & Data ([facility]) Vital Signs (Past 12 Hours) Vital Signs Temp Pulse Pulse Resp BP BP Pulse Ox 07/25/21 07:50 37.1 C 70 16 118/64 90 07/24/21 22:33 37.1 C 65 16 127/70 93 Laboratory Results WBC 7.9, Hb 11.7, Hct 34.7, Plts 227, Na 138, K 3.1, Cl 104, CO2 25, BUN 17, Cr 0.7, glucose 90. T Bili 1.7, Lipase 66. Diagnostic Findings MRCP 07/24/21: 1. Acute pancreatitis redemonstrated. No acute peripancreatic fluid collection or pancreatic ductal dilation. 2. Gallbladder sludge. No cholelithiasis or evidence of acute cholecystitis. 3. No intrahepatic or extrahepatic biliary ductal dilation or choledocholithiasis. 4. Trace abdominal ascites with bilateral pleural effusions. Liver US 07/22/21: 1. Limited study secondary to obscuring bowel gas. The pancreas is not diagnostically visualized. 2. Gallbladder sludge without cholelithiasis or sonographic evidence of acute cholecystitis 3. Hepatic steatosis. CTAP w IV 07/21/21: 1. Moderate stranding and fluid centered on the pancreatic tail and body suggestive of acute pancreatitis. No peripancreatic fluid collection. Hypodensity within the pancreatic tail related to acute pancreatitis. A CT of the abdomen 3 months is recommended to ensure resolution and exclude the unlikely possibility of an underlying pancreatic lesion. 2. Probable hepatic steatosis. 3. No biliary or pancreatic ductal dilatation. (1) Acute pancreatitis Acute pancreatitis complication: no infection or necrosis Pancreatitis type: unspecified pancreatitis type Qualified Code(s): K85.90 - Acute pancreatitis without necrosis or infection, unspecified
[2021-07-25] MEDS: LACTATED RINGER'S 1,000 ML IV SCH ×2 (11:48→17:56)
[2021-07-25] MEDS ORDERED: SUCCINYLCHOLINE CHLORIDE 20 MG/ML 10 ML VIAL IV ONE (12:35)
[2021-07-25] MEDS ORDERED: fentaNYL citrate 100 MCG/2 ML VIAL ONE (12:35)
[2021-07-25] MEDS ORDERED: MIDAZOLAM HCL 1 MG/ML 2ML VIAL ONE (12:37)
[2021-07-25] MEDS ORDERED: PROPOFOL IV EMULSION 10 MG/ML 20 ML VIAL IV ONE (12:37)
--- NOTE | 2021-07-25 12:58 | GI REPORT ---
Patient Name: Katey Gallegos Procedure Date: 07/25/2021 12:46 PM Date of : 1950 Admit Type: Inpatient Age: 70 Gender: Male Attending MD: Smith Brewer DO Procedure: Upper GI endoscopy Providers: Smith Brewer DO Referring MD: Rodney Menard MD, Sam Watson Indications: Epigastric abdominal pain, Abdominal pain in the right upper quadrant Medicines: General Anesthesia Complications: No immediate complications. Estimated blood loss: Minimal. Estimated Blood Loss: Estimated blood loss was minimal. Procedure: Pre-Anesthesia Assessment: - Prior to the procedure, a History and Physical was performed, and patient medications, allergies and sensitivities were reviewed. The patient's tolerance of previous anesthesia was reviewed. - The risks and benefits of the procedure and the sedation options and risks were discussed with the patient. All questions were answered and informed consent was obtained. - Patient identification and proposed procedure were verified prior to the procedure by the physician, the nurse and the director of sleep. The procedure was verified in the procedure room. - Pre-procedure physical examination revealed no contraindications to sedation. - ASA Grade Assessment: III - A patient with severe systemic disease. - After reviewing the risks and benefits, the patient was deemed in satisfactory condition to undergo the procedure. - The anesthesia plan was to use general anesthesia. - Immediately prior to administration of medications, the patient was re-assessed for adequacy to receive sedatives. - The heart rate, respiratory rate, oxygen saturations, blood pressure, adequacy of pulmonary ventilation, and response to care were monitored throughout the procedure. - The physical status of the patient was re-assessed after the procedure. After obtaining informed consent, the endoscope was passed under direct vision. Throughout the procedure, the patient's blood pressure, pulse, and oxygen saturations were monitored continuously. The Endoscope was introduced through the mouth, and advanced to the third part of duodenum. The upper GI endoscopy was accomplished without difficulty. The patient tolerated the procedure well. Findings: The examined esophagus was normal. The Z-line was regular and was found 36 cm from the incisors. The entire examined stomach was normal. The examined duodenum was normal. Impression: - Normal esophagus. - Z-line regular, 36 cm from the incisors. - Normal stomach. - Normal examined duodenum. - No specimens collected. Recommendation: - Perform an upper endoscopic ultrasound (UEUS) today. Smith Brewer D.O. Smith Brewer, DO 07/25/2021 12:57:54 PM This report has been signed electronically. Note Initiated On: 07/25/2021 12:46 PM Number of Addenda: 0 I attest to the content of the Intraoperative Record and orders documented therein, exceptions below {[id number]}
--- NOTE | 2021-07-25 13:14 | Communication Note ---
Date of Service: July 25, 2021 The patient went through upper endoscopy and endoscopic ultrasound this afternoon. The upper endoscopy was within normal limits. The endoscopic ultrasound was notable for a 3 to 4 mm common bile duct without evidence of filling material within it. The gallbladder was sludge filled with evidence of wall thickening. Recommendations Patient may have a clear liquid diet Consider a general surgery consultation as the patient may benefit from cholecystectomy Please call the referring gastroenterology service (Dr. Menard) for any further questions or concerns
--- NOTE | 2021-07-25 13:24 | GI REPORT ---
Patient Name: Katey Gallegos Procedure Date: 07/25/2021 12:47 PM Date of : 1950 Admit Type: Inpatient Age: 70 Gender: Male Attending MD: Smith Brewer DO Procedure: Upper EUS Providers: Smith Brewer DO Referring MD: Rodney Menard MD, Sam Watson Indications: Elevated bilirubin, Acute pancreatitis, Epigastric abdominal pain Medicines: General Anesthesia Complications: No immediate complications. Estimated blood loss: Minimal. Estimated Blood Loss: Estimated blood loss was minimal. Procedure: Pre-Anesthesia Assessment: - Prior to the procedure, a History and Physical was performed, and patient medications, allergies and sensitivities were reviewed. The patient's tolerance of previous anesthesia was reviewed. - The risks and benefits of the procedure and the sedation options and risks were discussed with the patient. All questions were answered and informed consent was obtained. - Patient identification and proposed procedure were verified prior to the procedure by the physician, the nurse and the anesthesiologist. The procedure was verified in the procedure room. - Pre-procedure physical examination revealed no contraindications to sedation. - ASA Grade Assessment: III - A patient with severe systemic disease. - After reviewing the risks and benefits, the patient was deemed in satisfactory condition to undergo the procedure. - The anesthesia plan was to use general anesthesia. - Immediately prior to administration of medications, the patient was re-assessed for adequacy to receive sedatives. - The heart rate, respiratory rate, oxygen saturations, blood pressure, adequacy of pulmonary ventilation, and response to care were monitored throughout the procedure. - The physical status of the patient was re-assessed after the procedure. After obtaining informed consent, the endoscope was passed under direct vision. Throughout the procedure, the patient's blood pressure, pulse, and oxygen saturations were monitored continuously. The Scope was introduced through the mouth, and advanced to the third part of duodenum. The upper EUS was accomplished without difficulty. The patient tolerated the procedure well. Findings: ENDOSONOGRAPHIC FINDING: : There was no sign of significant endosonographic abnormality in the ampulla. No pathologic lymphadenopathy and no masses were identified. There was no sign of significant endosonographic abnormality in the common bile duct. The maximum diameter of the duct was 4 mm. No stones, no biliary sludge and ducts of normal caliber were identified. Extensive hyperechoic material consistent with sludge was visualized endosonographically in the gallbladder. There was no sign of significant endosonographic abnormality in the visualized portion of the liver. Homogeneous parenchyma and no focal pathology were identified. There was no sign of significant endosonographic abnormality in the entire pancreas. The pancreas was well visualized, no masses, no cysts, the pancreatic duct was thin in caliber. No lymphadenopathy seen. Impression: - There was no sign of significant pathology in the ampulla. - There was no sign of significant pathology in the common bile duct. - Extensive amounts of hyperechoic material consistent with sludge was visualized endosonographically mostly filling the gallbladder. - There was no evidence of significant pathology in the visualized portion of the liver. - There was no sign of significant pathology in the entire pancreas. - No specimens collected. Recommendation: - Clear liquid diet today. - Refer to a surgeon as patient may benefit from Cholecystectomy. Smith Brewer D.O. Smith Brewer, DO 07/25/2021 1:23:47 PM This report has been signed electronically. Note Initiated On: 07/25/2021 12:47 PM Number of Addenda: 0 I attest to the content of the Intraoperative Record and orders documented therein, exceptions below {[id number]}
[2021-07-25] MEDS ORDERED: ATROPINE SULFATE 0.1 MG/ML 10ML SYR IV PRN (13:38)
[2021-07-25] MEDS ORDERED: fentaNYL citrate 100 MCG/2 ML VIAL IV PRN (13:38)
[2021-07-25] MEDS ORDERED: PROMETHAZINE HCL 12.5 MG in SODIUM CHLORIDE 0.9% 50 ML IV PRN (13:38)
[2021-07-25] MEDS ORDERED: LABETALOL HCL IV 5 MG/ML 20ML IV PRN (13:38)
[2021-07-25] MEDS ORDERED: ONDANSETRON INJ 2 MG/ML 2 ML VIAL IV PRN (13:38)
[2021-07-25] MEDS ORDERED: NALOXONE HCL 0.4 MG/1 ML VIAL/CARP IV PRN (13:38)
[2021-07-25] MEDS ORDERED: FLUMAZENIL 0.1 MG/1 ML 10 ML VIAL IV PRN (13:38)
[2021-07-25] MEDS ORDERED: ePHEDrine sulfate 50 MG/ML AMP IV PRN (13:38)
--- NOTE | 2021-07-25 15:01 | Hospitalist Progress Note ---
Date of Service July 25, 2021 Assessment & Plan (1) Acute pancreatitis: Plan: Acute pancreatitis likely secondary to gall bladder disease, but may be alcohol related. -- MRCP 07/24/21 - gallbladder distension and sludge - I suspect this is more likely the cause of his ongoing pancreatitis than his alcohol intake despite bilirubin and WBC improving without intervention -- Appreciate GI consult. -- ERCP done today; The endoscopic ultrasound was notable for a 3 to 4 mm common bile duct without evidence of filling material within it. The gallbladder was sludge filled with evidence of wall thickening. -- No RUQ pain to suggest acute cholangitis and bilirubin and WBC improving (likely secondary to pancreatitis alone). -- Blood cultures negative. -- Oxycodone 5 mg every 4 as needed for moderate pain. Dilaudid 0.5 mg IV every 4 for severe pain. -- Continue IVF. -- Begin IV antibiotics. -- Obtain general surgery consult. (2) Gall bladder disease: Plan: -- Manage as outlined above. (3) Prediabetes: Plan: -- BSG's have ranged between 90 to 123 mg/dL since admission. (4) Hypokalemia: Plan: Serum K is 3.1 mmol/L today. -- Begin oral supplement. -- Monitor daily labs. Admission and Anticipated Discharge Date Admission Date: July 21, 2021 Subjective Mr. Gallegos is a 70 year old with a history of GERD and Prediabetes who was admitted with Acute Pancreatitis and further evaluation today revealed gall bladder sludge/gall bladder disease. GI is recommending a Surgical Consult and IV Antibiotics. Patient is currently being seen in room 388. He offers no complaints. He has not had any fevers, chills, nausea, or vomiting. He denies any significant abdominal pain at this time. Physical Exam Physical Exam: GENERAL: Patient in no acute distress. HEENT: Head is atraumatic, normocephalic. Sclerae anicteric. EOM's intact. Facies symmetric. No perioral cyanosis. NECK: No JVD. JVP is not elevated. Carotid upstrokes are + 2 bilaterally. No bruits are noted. CHEST/LUNGS: Clear to auscultation throughout all lung rodríguez. No wheezes, rales, or crackles. CVS: S1 and S2 are regular without murmurs, gallops, or rubs. PMI is nondisplaced. No lifts, heaves, or thrills. No abdominal aortic or renal bruits. ABDOMINAL EXAM: Bowel sounds are present. Tenderness to palpation in mid epigastrium, no guarding or rigidity. EXTREMITIES: No clubbing or cyanosis. No edema. Intact posterior tibial and radial pulses bilaterally. NEUROLOGIC EXAM: Patient is awake, alert, and oriented. Pleasant and cooperative. Answers questions appropriately. Speech is clear. Normal movement in all 4 extremities. Results & Data Results & Data ([facility]) Vital Signs (Past 12 Hours) Vital Signs Temp Pulse Pulse Resp BP BP Pulse Ox 07/25/21 14:51 60 16 168/91 H 94 07/25/21 14:23 36.9 C 65 18 145/79 H 92 07/25/21 14:00 64 16 143/78 H 94 07/25/21 13:50 64 16 135/78 92 07/25/21 13:40 69 12 132/78 92 07/25/21 13:31 36.2 C L 74 20 138/77 94 07/25/21 12:02 36.9 C 70 18 148/89 H 97 07/25/21 07:50 37.1 C 70 16 118/64 90 Laboratory Results Laboratory Results - last 24 hr 07/25/21 07/25/21 05:20 05:20 WBC 7.97 RBC 3.96 L Hgb 11.7 L Hct 34.7 L MCV 87.6 MCH 29.5 MCHC 33.7 RDW Std Deviation 43.8 RDW Coeff of Swathi 13.4 Plt Count 227 MPV 11.0 H Immature Gran % (Auto) 0.1 Neut % (Auto) 75.0 Lymph % (Auto) 12.0 [place] % (Auto) 11.8 Eos % (Auto) 1.0 Baso % (Auto) 0.1 Neut # (Auto) 5.97 Lymph # (Auto) 0.96 L [place] # (Auto) 0.94 H Eos # (Auto) 0.08 Baso # (Auto) 0.01 Immature Gran # (Auto) 0.01 Sodium 138 Potassium 3.1 L Chloride 104 Carbon Dioxide 25 Anion Gap 9 BUN 17 Creatinine 0.70 Est Cr Clr Drug Dosing 95.0 Est GFR ( Amer) 110.8 Est GFR (Non-Af Amer) 95.6 BUN/Creatinine Ratio 24.3 H Glucose 90 Calcium 8.1 L Total Bilirubin 1.7 H AST 32 ALT 33 Alkaline Phosphatase 52 Total Protein 5.7 L Albumin 3.0 L Globulin 2.7 Albumin/Globulin Ratio 1.1 Diagnostic Findings Patient underwent upper endoscopy and endoscopic ultrasound this afternoon 07/25/21. The upper endoscopy was within normal limits. The endoscopic ultrasound was notable for a 3 to 4 mm common bile duct without evidence of filling material within it. The gallbladder was sludge filled with evidence of wall thickening. Recommendations per GI: -- Patient may have a clear liquid diet. -- Consider a general surgery consultation as the patient may benefit from cholecystectomy. Medications Administered Medications famotidine 20 mg tablet (Pepcid) 20 mg PO QAM 07/19/18 [History Confirmed 07/21/21] fexofenadine 60 mg tablet 60 mg PO BID 07/19/18 [History Confirmed 07/21/21] multivitamin 1 tab PO QAM 07/19/18 [History Confirmed 07/21/21] triamcinolone acetonide 55 mcg nasal spray aerosol (Nasacort) 1 spray INTRANASAL HS 07/19/18 [History Confirmed 07/21/21] albuterol sulfate 90 mcg/actuation aerosol inhaler (Ventolin HFA) 1 inh INHALATION QID PRN #18 g 03/13/20 [Rx Confirmed 07/21/21] zolpidem 5 mg tablet 5 mg PO HS PRN #90 tab 10/09/20 [Rx Confirmed 07/21/21] cholecalciferol (vitamin D3) 50 mcg (2,000 unit) capsule 50 mcg PO QAM 04/09/21 [History Confirmed 07/21/21] omeprazole 20 mg tablet,delayed release 20 mg PO DAILY@1600 07/21/21 [History Confirmed 07/21/21] Home Medications Acetaminophen (Acetaminophen 325 Mg Tab) 650 mg PO Q4H PRN PRN Reason: Pain or Fever Stop: 08/20/21 14:49 Last Admin: 07/25/21 09:28 Dose: 650 mg Documented by: Albuterol (Albuterol Hfa 8 Gm Inhaler) 1 puffs INH QIDR PRN PRN Reason: shortness of breath or wheezing Stop: 08/20/21 14:49 Atropine Sulfate (Atropine Sulfate 0.1 Mg/Ml 10ml Syr) 0.5 mg IV Q1M PRN PRN Reason: PACU Use-HR<40 &/or Bradycardi Stop: 07/25/21 21:38 Enoxaparin Sodium (Enoxaparin Inj 40 Mg/0.4 Ml Syr) 40 mg SQ QPM [facility] Stop: 08/20/21 20:59 Last Admin: 07/24/21 21:32 Dose: 40 mg Documented by: Ephedrine Sulfate (Ephedrine Sulfate 50 Mg/Ml Amp) 5 mg IV Q5M PRN PRN Reason: PACU Use Only-SBP<90 mmHg Stop: 07/25/21 21:38 Famotidine (Famotidine 20 Mg Tab) 20 mg PO QAM [facility] Stop: 08/20/21 14:49 Last Admin: 07/25/21 07:44 Dose: 20 mg Documented by: Fentanyl Citrate (Fentanyl Citrate 100 Mcg/2 Ml Vial) 25 mcg IV Q5M PRN PRN Reason: PACU Use Only-Pain Stop: 07/25/21 21:39 Fexofenadine HCl (Fexofenadine 60 Mg Tab) 60 mg PO BID [facility] Stop: 08/20/21 14:49 Last Admin: 07/25/21 07:44 Dose: 60 mg Documented by: Flumazenil (Flumazenil 0.1 Mg/1 Ml 10 Ml Vial) 0.2 mg IV Q2M PRN PRN Reason: PACU Use Only-Benzo Reversal Stop: 07/25/21 21:39 Hydromorphone HCl (Hydromorphone Inj 0.5 Mg/0.5 Ml Syr) 0.5 mg IV Q4 PRN PRN Reason: Severe Pain Stop: 08/04/21 14:49 Last Admin: 07/22/21 05:09 Dose: 0.5 mg Documented by: Lactated Ringer's (Lr) 1,000 mls @ 75 mls/hr IV .[id number] [facility] Stop: 08/20/21 10:44 Last Admin: 07/25/21 11:48 Dose: 75 mls/hr Documented by: Promethazine HCl 12.5 mg/ (Sodium Chloride) 50.5 mls @ 204 mls/hr IV ONCE PRN PRN Reason: PACU Use Only-Nausea/Vomiting Stop: 07/25/21 21:39 Ampicillin Sodium/Sulbactam Sodium 1,500 mg/ Sodium Chloride 104 mls @ 200 mls/hr IV Q6H [facility]; Protocol Stop: 08/04/21 15:59 Labetalol HCl (Labetalol Hcl Iv 5 Mg/Ml 20ml) 5 mg IV Q5M PRN PRN Reason: PACU Use-SBP>160 or DBP>100 Stop: 07/25/21 21:39 Naloxone HCl (Naloxone Hcl 0.4 Mg/1 Ml Vial/Carp) 0.2 mg IV Q2M PRN PRN Reason: PACU Use Only-Opiate Reversal Stop: 07/25/21 21:39 Ondansetron HCl (Ondansetron Inj 2 Mg/Ml 2 Ml Vial) 4 mg IV Q6H PRN PRN Reason: Nausea Stop: 08/20/21 14:49 Ondansetron HCl (Ondansetron Inj 2 Mg/Ml 2 Ml Vial) 4 mg IV ONCE PRN PRN Reason: PACU Use Only-Nausea/Vomiting Stop: 07/25/21 21:39 Oxycodone HCl (Oxycodone Hcl Ir 5 Mg Tab (Immediate Release)) 5 mg PO Q4 PRN PRN Reason: Moderate Pain Stop: 08/04/21 14:49 Last Admin: 07/25/21 09:28 Dose: 5 mg Documented by: Pantoprazole Sodium (Pantoprazole 40 Mg Tab) 40 mg PO DAILY@1600 [facility]; Protocol Stop: 08/20/21 15:59 Last Admin: 07/24/21 16:28 Dose: 40 mg Documented by: Polyethylene Glycol (Polyethylene (Miralax) 17 Gm Pack) 17 gm PO BID [facility] Stop: 08/23/21 20:59 Last Admin: 07/24/21 21:31 Dose: Not Given Documented by: Simethicone (Simethicone 80 Mg Chew) 80 mg PO Q6H PRN PRN Reason: bloating Stop: 08/21/21 14:45 Last Admin: 07/24/21 14:01 Dose: 80 mg Documented by: Triamcinolone Acetonide (Triamcinolone Acet Nasal [place] 10.8ml Btl) 1 sprays NA HS [facility] Stop: 08/20/21 20:59 Last Admin: 07/24/21 21:33 Dose: 1 sprays Documented by: Zolpidem Tartrate (Zolpidem Tartrate 5 Mg Tab) 5 mg PO HS PRN PRN Reason: Sleep Stop: 08/20/21 14:49 PG Care Time/CCT Total # of Minutes Spent Total Time Spent with Patient: Total time spent is greater than 50% in coordination of care (as documented) at patient's floor/unit and/or counseling patient:38 Coding Level of Care Code 68384 Subseq Hosp Care Lvl 3 Diagnoses Acute pancreatitis K85.90 Acute pancreatitis complication: no infection or necrosis Pancreatitis type: unspecified pancreatitis type Gall bladder disease K82.9 Prediabetes R73.03 Hypokalemia E87.6 Time Spent (min) 52 (1) Acute pancreatitis Acute pancreatitis complication: no infection or necrosis Pancreatitis type: unspecified pancreatitis type Qualified Code(s): K85.90 - Acute pancreatitis without necrosis or infection, unspecified
--- NOTE | 2021-07-25 15:08 | Anesthesiology Progress Note ---
Date of Service July 25, 2021 Anesthesia Post Procedure Vital Signs Vital Signs: Temp Pulse Pulse Resp BP BP Pulse Ox 07/25/21 14:51 60 16 168/91 H 94 07/25/21 14:23 36.9 C 65 18 145/79 H 92 07/25/21 14:00 64 16 143/78 H 94 07/25/21 13:50 64 16 135/78 92 07/25/21 13:40 69 12 132/78 92 07/25/21 13:31 36.2 C L 74 20 138/77 94 07/25/21 12:02 36.9 C 70 18 148/89 H 97 07/25/21 07:50 37.1 C 70 16 118/64 90 07/24/21 22:33 37.1 C 65 16 127/70 93 07/24/21 19:49 37.0 C Pain Intensity Upper Abdomen: Pain Intensity: 4 Transfer of Care Handoff Completed per policy Notes Mental Status: alert / awake / arousable Patient Amnestic to Procedure: Yes Nausea / Vomiting: adequately controlled Pain: adequately controlled Airway Patency, RR, SpO2: stable & adequate BP & HR: stable & adequate Hydration State: stable & adequate Anesthetic Complications: no major complications apparent
[2021-07-25] MEDS: POTASSIUM CHLORIDE CRTAB 20 MEQ TABCR PO SCH (16:04)
[2021-07-25] MEDS: PANTOprazole 40 MG TAB PO SCH (16:05)
[2021-07-25] MEDS: AMPICILLIN/SULBACTAM SOD 1,500 MG in 0.9 % SODIUM CHLORIDE 100 ML IV SCH ×2 (16:05→21:29)
[2021-07-25] MEDS: POLYETHYLENE (MIRALAX) 17 GM PACK PO SCH ×2 (16:10→21:16)
--- NOTE | 2021-07-25 16:23 | Surgery Consultation ---
Date of Consultation July 25, 2021 Assessment & Plan (1) Acute pancreatitis: This is a 70y M with a PMH of pre-DM, GERD who is here with abdominal pain that started Thursday evening after eating crab cakes, cheese, and wine at a friends house for dinner. Workup here with a CT a/p, RUQ US, and MRCP showed evidence of acute pancreatitis and a gallbladder with + sludge, no ductal dilation or cholelithiasis. Today patient underwent an EUS with GI as he has had an elevated bilirubin (today 1.7). EUS revealed no filling defects of the bile ducts and confirmed gallbladder sludge and wall thickening. GI recommended we evaluate patient for cholecystectomy. Patient reports his pain is ongoing and has not improved nor worsened since admission. Today on exam abdomen is a bit distended, soft, and currently non tender (but returned recently from EUS). Lipase 66 on 07/22 from 277. We offered to patient to let him recover from his pancreatitis and follow up with him as an outpatient for discussion of cholecystectomy, but he and prefer to get it taken care of while here. Unclear if pancreatitis is due to gallbladder etiology, but he does have elevated Tb and findings of sludge and GB wall thickening on imaging. We will tentatively place him on the schedule for this upcoming Thursday. Supervising Physician Co-Signing Physician Notes I personally saw and evaluated the patient with Ivory Stacy PA-C and agree with the assessment and plan. 70-year-old male with gallstone pancreatitis, status post EUS He still has some significant midepigastric pain which I believe is related to his pancreatitis as he has no signs of cholecystitis on imaging I believe delaying cholecystectomy for another few days to allow for his pancreatitis to improve is the best option for this patient He also would prefer if possible to have Dr. Sanchez perform his cholecystectomy if he is able to do so Dr. Sanchez will be back on Thursday We did discuss that if Dr. Sanchez was not able to do the surgery he would be okay with me proceeding with cholecystectomy Thursday I would not advance him past clear liquids over the weekend Make n.p.o. after midnight Thursday night Surgery will follow the patient over the weekend History of Present Illness Attending Physician: Sam Watson DO History of Present Illness This is a 70y M with a PMH of pre-DM, GERD who is here with abdominal pain that started Thursday evening after eating crab cakes, cheese, and wine at a friends house for dinner. The pain continued and he could not get comfortable and due to ongoing symptoms presented to the ER on 07/21/21. Workup with a CT a/p revealed evidence of acute pancreatitis. Patient reports a history of drinking 1-2 alcoholic beverages a day and will drink socially, but will sometimes go awhile without a drink. Patient was found to have an elevated bilirubin (2) on labs from 07/22 so he underwent a RUQ US that revealed + gallbladder sludge without cholelithiasis or evidence of acute mila. MRCP showed similar findings. Today, he underwent an EUS with GI that revealed no biliary stones, but + sludge and ga llbladder wall thickening. He endorses ongoing belly pain that has not worsened nor improved since admission. He has been tolerating a diet prior to today without issues. He denies CP/SOB, nausea/vomiting. He has had + fevers in the AM during his admission in addition to reporting constipation and dark colored urine. He has no previous abdominal surgical history. This is the first time he has been admitted for pancreatitis. Allergies Allergy/AdvReac Type Severity Reaction Status Date / Time latex Allergy Unknown ITCHING Verified 07/21/21 08:16 Home Medications Medication Instructions Recorded Confirmed Type famotidine 20 mg tablet (Pepcid) 20 mg PO QAM 07/19/18 07/21/21 History fexofenadine 60 mg tablet 60 mg PO BID 07/19/18 07/21/21 History multivitamin 1 tab PO QAM 07/19/18 07/21/21 History triamcinolone acetonide 55 mcg 1 spray INTRANASAL HS 07/19/18 07/21/21 History nasal spray aerosol (Nasacort) albuterol sulfate 90 mcg/actuation 1 inh INHALATION QID PRN #18 g 03/13/20 07/21/21 Rx aerosol inhaler (Ventolin HFA) zolpidem 5 mg tablet 5 mg PO HS PRN #90 tab 10/09/20 07/21/21 Rx cholecalciferol (vitamin D3) 50 50 mcg PO QAM 04/09/21 07/21/21 History mcg (2,000 unit) capsule omeprazole 20 mg tablet,delayed 20 mg PO DAILY@1600 07/21/21 07/21/21 History release Patient History Medical History Adenomatous polyp of colon GERD (gastroesophageal reflux disease) Insomnia Prediabetes Seasonal allergies Surgical History History of colonoscopy History of esophagogastroduodenoscopy (EGD) History of root canal procedure History of wisdom tooth extraction Family History Father Diabetes Myocardial infarction Denies family history of Ovarian cancer Prostate cancer No family history of adverse response to anesthesia Breast cancer Colorectal cancer Social History Smoking Status: Never smoker Second Hand Exposure: No; Hx Alcohol Use: Yes Alcohol type: wine Hx Substance Use: No Preferred Language: Thai Communication Ability: Effective [employer] Intern Required: No Beliefs That Will Affect Care: None marital status: Current Living Situation: Spouse current occupational status: employed Other Information That Helps Us Care for You: No Feels Safe at Home: Yes Safety Concerns: Feels Safe At This Time Dental Care, Regularly: Yes Physical Activity Frequency: 5-6 Times per Week Seatbelt Use: always Sunscreen Use: Yes Assistive Devices: None Review of Systems Constitutional: + fever Respiratory: no dyspnea Cardiovascular: no chest pain Gastrointestinal: + abdominal pain, + bloating and + constipation; no nausea, no vomiting and no diarrhea/loose stools Physical Exam Physical Exam: awake/alert Respiratory: normal respiratory effort Gastrointestinal (Abdomen): Inspection/Auscultation: + abdomen distended Percussion/Palpation: abdomen soft; abdomen nontender Results & Data ([facility]) Vital Signs (Past 12 Hours) Vital Signs Temp Pulse Pulse Resp BP BP Pulse Ox 07/25/21 16:05 66 152/79 H 93 07/25/21 15:24 60 18 149/79 H 95 07/25/21 14:51 60 16 168/91 H 94 07/25/21 14:23 36.9 C 65 18 145/79 H 92 07/25/21 14:00 64 16 143/78 H 94 07/25/21 13:50 64 16 135/78 92 07/25/21 13:40 69 12 132/78 92 07/25/21 13:31 36.2 C L 74 20 138/77 94 07/25/21 12:02 36.9 C 70 18 148/89 H 97 07/25/21 07:50 37.1 C 70 16 118/[address] OF THE ABDOMEN AND PELVIS WITH CONTRAST CLINICAL HISTORY: Epigastric and mid abdominal pain. COMPARISON STUDY: Renal ultrasound May 03, 2008. TECHNIQUE: Following IV administration of 95 mL of Optiray, axial images of the abdomen and pelvis were obtained from the lung bases to the proximal femurs. Images were reviewed in the axial, sagittal, and coronal planes. IV contrast was administered without complication. Automated exposure control was utilized for the study. A dose lowering technique was utilized adhering to the principles of ALARA. CT DOSE: 341.44 mGy.cm FINDINGS: Ground glass opacities within the lower lungs represent atelectasis. No pneumatosis, free air or portal venous gas is present. There is probable hepatic steatosis. No biliary or pancreatic ductal dilatation is noted. Note is made of moderate stranding and fluid centered on the pancreatic tail and body. Hypodensity within the pancreatic tail is noted. No well-defined lesion is present. There is no peripancreatic fluid collection. There is no evidence for a bowel obstruction. Caliber and wall thickness of small and large bowel are normal. Colonic diverticulosis is noted without evidence for acute diverticulitis. Moderate amount of stool within the colon is noted. Prostate is enlarged, measuring 5.7 cm in transverse dimension. There is no hydronephrosis. Multiple left renal cysts measure up to 5.7 cm. Major vasculature is patent. No acute fracture or suspicious lesion is identified within visualized skeletal structures. There is no abdominal or pelvic lymphadenopathy. IMPRESSION: 1. Moderate stranding and fluid centered on the pancreatic tail and body suggestive of acute pancreatitis. No peripancreatic fluid collection. Hypodensity within the pancreatic tail related to acute pancreatitis. A CT of the abdomen 3 months is recommended to ensure resolution and exclude the unlikely possibility of an underlying pancreatic lesion. 2. Probable hepatic steatosis. 3. No biliary or pancreatic ductal dilatation. ACT 112: Negative or not required by law. Electronically signed by: Jv Couch M.D. 07/21/2021 9:00 AM US liver HISTORY: 70 years-old Male pancretitis, increasing bilirubin acute generalized abdominal pain with pancreatitis COMPARISON: CT abdomen and pelvis 07/21/2021 TECHNIQUE: Multiple real-time sonographic images of the abdominal right upper quadrant were obtained assessing grayscale appearance and color flow FINDINGS: The pancreas is obscured by bowel gas. There is increased echogenicity of the liver suggestive of hepatic steatosis with probable focal fatty sparing the sydnee hepatis measuring up to 1.4 cm. No marginal nodularity to suggest cirrhosis. Gallbladder sludge is noted without shadowing cholelithiasis or gallbladder wall thickening. No pericholecystic fluid identified. Normal common bile duct measures 4 mm. The imaged right kidney is unremarkable without hydronephrosis. IMPRESSION: 1. Limited study secondary to obscuring bowel gas. The pancreas is not diagnostically visualized. 2. Gallbladder sludge without cholelithiasis or sonographic evidence of acute cholecystitis 3. Hepatic steatosis. ACT 112: Negative or not required by law. The above report was generated using voice recognition software. It may contain grammatical, syntax or spelling errors. Electronically signed by: Mundo Mayers M.D. 07/22/2021 4:09 PM MR MRCP HISTORY: 70 years-old Male biliary sludge, pancreatitis acute right upper quadrant abdominal pain with reported history of biliary sludge and pancreatitis COMPARISON: CT abdomen and pelvis 07/21/2021 TECHNIQUE: MRCP without the use of IV contrast was obtained according to institutional protocol. FINDINGS: Motion degraded exam. Trace right and small left pleural effusions. Mild left basilar consolidation. Trace abdominal pelvic ascites with soft tissue edema the body wall. Left greater than right renal cysts measure up to 5.8 cm on the left. Left perinephric edema. The visualized spleen, adrenal glands and liver appear unremarkable. Mild gallbladder distention with suggested biliary sludge. No cholelithiasis or gallbladder wall thickening. There is no intrahepatic or extrahepatic biliary ductal dilation. No choledocholithiasis. No pancreatic ductal dilation or pancreatic divisum identified. Interstitial and peripancreatic edema is redemonstrated with fluid and edema noted within the lesser sac. The previously questioned hypodense focus of the pancreatic tail is better appreciated on the comparison CT. IMPRESSION: 1. Acute pancreatitis redemonstrated. No acute peripancreatic fluid collection or pancreatic ductal dilation. 2. Gallbladder sludge. No cholelithiasis or evidence of acute cholecystitis. 3. No intrahepatic or extrahepatic biliary ductal dilation or choledocholithiasis. 4. Trace abdominal ascites with bilateral pleural effusions. ACT 112: Negative or not required by law. The above report was generated using voice recognition software. It may contain grammatical, syntax or spelling errors. Electronically signed by: Mundo Mayers M.D. 07/24/2021 2:17 PM PG Care Time/CCT Total # of Minutes Spent Total Time Spent with Patient: Total time spent is greater than 50% in coordination of care (as documented) at patient's floor/unit and/or counseling patient: Coding Level of Care Code 08332 Inpt Consult Level 3 Diagnoses Acute pancreatitis K85.90 Acute pancreatitis complication: no infection or necrosis Pancreatitis type: unspecified pancreatitis type (1) Acute pancreatitis Acute pancreatitis complication: no infection or necrosis Pancreatitis type: unspecified pancreatitis type Qualified Code(s): K85.90 - Acute pancreatitis without necrosis or infection, unspecified
[2021-07-25] MEDS: ENOXAPARIN INJ 40 MG/0.4 ML SYR SQ SCH (21:17)
[2021-07-25] MEDS: TRIAMCINOLONE ACET NASAL SPRAY 10.8ML BTL SCH (21:18)
[2021-07-26] MEDS: oxyCODONE HCL IR 5 MG TAB (IMMEDIATE RELEASE) PO PRN ×5 (02:41→21:26)
[2021-07-26] MEDS: AMPICILLIN/SULBACTAM SOD 1,500 MG in 0.9 % SODIUM CHLORIDE 100 ML IV SCH ×4 (04:09→21:25)
[2021-07-26 07:04] LABS: BUN Creatinine Ratio 20.8 (10-20); Calcium 8.1 mg/dl (8.5-10.1); Creatinine Clr Calc Pharmacy 92.4 ml/min; Est GFR (African American) 109.5 ml/min; Est GFR (Non-African American) 94.5 ml/min; Magnesium 1.8 mg/dl (1.7-2.4); Potassium 3.2 mmol/L (3.5-5.1)
[2021-07-26] MEDS: POLYETHYLENE (MIRALAX) 17 GM PACK PO SCH ×2 (07:57→21:25)
[2021-07-26] MEDS: POTASSIUM CHLORIDE CRTAB 20 MEQ TABCR PO SCH ×2 (07:57→16:20)
[2021-07-26] MEDS: LACTATED RINGER'S 1,000 ML IV SCH ×2 (07:57→21:23)
[2021-07-26] MEDS: FAMOTIDINE 20 MG TAB PO SCH (07:58)
[2021-07-26] MEDS: FEXOFENADINE 60 MG TAB PO SCH ×2 (07:58→21:25)
--- NOTE | 2021-07-26 11:22 | Surgery Progress Note ---
Date of Service July 26, 2021 Assessment & Plan (1) Acute pancreatitis: Plan: Patient here with acute pancreatitis Workup with CT a/p, MRI, RUQ US show gallbladder sludge and GB wall thickening; no cholelithiasis. GI performed EUS yesterday and confirmed findings Patient has epigastric pain to palpation, non tender in RUQ Would recommend letting him settle out from pancreatitis and we can proceed with lap mila this upcoming Thursday. Patient and prefer Dr. Sanchez if possible because he has operated on before. Will discuss with Dr. Sanchez and see if he would be available Thursday to do the surgery, if not we will proceed with Dr. Ansari. Patient is agreeable to this plan Admission and Anticipated Discharge Date Admission Date: July 21, 2021 Supervising Physician Co-Signing Physician Notes I personally saw and evaluated the patient with Ivory Stacy PA-C and agree with the assessment and plan. 70-year-old male with gallstone pancreatitis, status post EUS Okay for clear liquids Continue to allow his pancreatitis to improve We will tentatively plan for cholecystectomy on Thursday with either myself or Dr. Sanchez We will follow Subjective Patient still with some upper abdominal discomfort. Offers no other complaints. Physical Exam Physical Exam: awake/alert Respiratory: normal respiratory effort Gastrointestinal (Abdomen): Percussion/Palpation: + abdomen tender (discomfort to palpation in the epigastric region; no RUQ tenderness) and abdomen soft Results & Data ([facility]) Vital Signs (Past 12 Hours) Vital Signs Temp Pulse Resp BP Pulse Ox 07/26/21 07:50 36.9 C 64 16 161/83 H 94 07/26/21 02:49 37.4 C 67 16 136/70 95 PG Care Time/CCT Total # of Minutes Spent Total Time Spent with Patient: Total time spent is greater than 50% in coordination of care (as documented) at patient's floor/unit and/or counseling patient: Coding Level of Care Code 05809 Subseq Hosp Care Lvl 1 Diagnoses Acute pancreatitis K85.90 Acute pancreatitis complication: no infection or necrosis Pancreatitis type: unspecified pancreatitis type (1) Acute pancreatitis Acute pancreatitis complication: no infection or necrosis Pancreatitis type: unspecified pancreatitis type Qualified Code(s): K85.90 - Acute pancreatitis without necrosis or infection, unspecified
--- NOTE | 2021-07-26 12:43 | Anesthesiology Consultation ---
Date of Service July 26, 2021 Assessment & Plan (1) Encounter for pre-operative examination: Chart Review Chart Review: Acceptable Risk for Surgery and Patient NOT seen in Pre Admission Testing Consults Requested none History Surgery Operation Date: 07/25/21 10:55 Proposed Procedures p Endoscopic Ultrasonography Upper - Smith Brewer DO s Endoscopic Retrograde Cholangiopancreato - Smith Brewer DO Operation Date: 07/29/21 10:20 Proposed Procedures p Laparoscopic Cholecystectomy - Ramiro Ansari DO Height/Weight Height: 5 ft 8 in Weight: 78.154 kg Allergies Allergy/AdvReac Type Severity Reaction Status Date / Time latex Allergy Unknown ITCHING Verified 07/21/21 08:16 Medications Home Medications Medication Instructions Recorded Confirmed Last Taken famotidine 20 mg tablet (Pepcid) 20 mg PO QAM 07/19/18 07/21/21 07/20/21 fexofenadine 60 mg tablet 60 mg PO BID 07/19/18 07/21/21 07/20/21 multivitamin 1 tab PO QA 07/19/18 07/21/21 07/20/21 triamcinolone acetonide 55 mcg 1 spray INTRANASAL HS 07/19/18 07/21/21 07/20/21 nasal spray aerosol (Nasacort) albuterol sulfate 90 mcg/actuation 1 inh INHALATION QID PRN #18 g 03/13/20 07/21/21 Unknown aerosol inhaler (Ventolin HFA) zolpidem 5 mg tablet 5 mg PO HS PRN #90 tab 10/09/20 07/21/21 07/18/21 2.5mg cholecalciferol (vitamin D3) 50 50 mcg PO QAM 04/09/21 07/21/21 07/20/21 mcg (2,000 unit) capsule omeprazole 20 mg tablet,delayed 20 mg PO DAILY@1600 07/21/21 07/21/21 07/20/21 release Active Medications Generic Name Dose Route Start Last Admin Trade Name Freq PRN Reason Stop Dose Admin Acetaminophen 650 mg 07/21/21 14:50 07/25/21 17:55 Acetaminophen 325 Mg Tab PO 08/20/21 14:49 650 mg Q4H PRN Administration Pain or Fever Enoxaparin Sodium 40 mg 07/21/21 21:00 07/25/21 21:17 Enoxaparin Inj 40 Mg/0.4 Ml Syr SQ 08/20/21 20:59 40 mg QPM ANNE-MARIE Administration Famotidine 20 mg 07/21/21 14:50 07/26/21 07:58 Famotidine 20 Mg Tab PO 08/20/21 14:49 20 mg QAM ANNE-MARIE Administration Fexofenadine HCl 60 mg 07/21/21 14:50 07/26/21 07:58 Fexofenadine 60 Mg Tab PO 08/20/21 14:49 60 mg BID ANNE-MARIE Administration Hydromorphone HCl 0.5 mg 07/21/21 14:50 07/22/21 05:09 Hydromorphone Inj 0.5 Mg/0.5 Ml Syr IV 08/04/21 14:49 0.5 mg Q4 PRN Administration Severe Pain Lactated Ringer's 1,000 mls @ 75 mls/hr 07/21/21 10:45 07/26/21 07:57 Lr IV 08/20/21 10:44 75 mls/hr .[id number] ANNE-MARIE Administration Ampicillin Sodium/Sulbactam 104 mls @ 200 mls/hr 07/25/21 16:00 07/26/21 10:40 Sodium 1,500 mg/ Sodium IV 08/04/21 15:59 Infused Chloride Q6H ANNE-MARIE Infusion Protocol Oxycodone HCl 5 mg 07/21/21 14:50 07/26/21 07:57 Oxycodone Hcl Ir 5 Mg Tab (Immediate Release) PO 08/04/21 14:49 5 mg Q4 PRN Administration Moderate Pain Pantoprazole Sodium 40 mg 07/21/21 16:00 07/25/21 16:05 Pantoprazole 40 Mg Tab PO 08/20/21 15:59 40 mg DAILY@1600 ANNE-MARIE Administration Protocol Polyethylene Glycol 17 gm 07/24/21 21:00 07/26/21 07:57 Polyethylene (Miralax) 17 Gm Pack PO 08/23/21 20:59 17 gm BID ANNE-MARIE Administration Potassium Chloride 20 meq 07/25/21 17:00 07/26/21 07:57 Potassium Chloride Crtab 20 Meq Tabcr PO 08/24/21 16:59 20 meq BID17 ANNE-MARIE Administration Simethicone 80 mg 07/22/21 14:46 07/24/21 14:01 Simethicone 80 Mg Chew PO 08/21/21 14:45 80 mg Q6H PRN Administration bloating Triamcinolone Acetonide 1 sprays 07/21/21 21:00 07/25/21 21:18 Triamcinolone Acet Nasal [place] 10.8ml Btl NA 08/20/21 20:59 1 sprays HS ANNE-MARIE Administration NPO Date Last Intake of Fluids: 07/24/21 Time Last Intake of Fluids: 23:30 Date Last Intake of Solids: 07/24/21 Time Last Intake of Solids: 22:00 Past Medical History Medical History Adenomatous polyp of colon GERD (gastroesophageal reflux disease) Insomnia Prediabetes Seasonal allergies Past Family History Family History Father Diabetes Myocardial infarction Denies family history of Ovarian cancer Prostate cancer No family history of adverse response to anesthesia Breast cancer Colorectal cancer Past Surgical History Surgical History History of colonoscopy History of esophagogastroduodenoscopy (EGD) History of root canal procedure History of wisdom tooth extraction Social History Smoking Status: Never smoker Hx Alcohol Use: Yes Alcohol type: wine alcohol intake frequency: 0-2 drinks per day Hx Substance Use: No substance use type: does not use Physical Exam Vital Signs Last Vital Signs Temp 36.9 C 07/26/21 07:50 Pulse 64 07/26/21 07:50 Resp 16 07/26/21 07:50 BP 161/83 H 07/26/21 07:50 Pulse Ox 94 07/26/21 07:50 Testing Laboratory Results 07/25/21 05:20 07/26/21 05:31 Urine Color Yellow 07/21/21 08:57 Urine Appearance Clear (Clear) 07/21/21 08:57 Urine pH 7.5 (4.5-7.5) 07/21/21 08:57 Ur Specific [place] 1.039 (1.000-1.030) H 07/21/21 08:57 Urine Protein Negative (Negative) 07/21/21 08:57 Urine Glucose (UA) Negative (Negative) 07/21/21 08:57 Urine Ketones Negative (Negative) 07/21/21 08:57 Urine Nitrite Negative (Negative) 07/21/21 08:57 Ur Leukocyte Esterase Negative (Negative) 07/21/21 08:57 Urine WBC (Auto) 0 /hpf (0-5) 07/21/21 08:57 Urine RBC (Auto) 10-30 /hpf (0-4) H 07/21/21 08:57 U Hyaline Cast (Auto) 0 /lpf (0-5) 07/21/21 08:57 U Epithel Cells (Auto) 0-5 /lpf (0-5) 07/21/21 08:57 Urine Bacteria (Auto) Negative (Negative) 07/21/21 08:57 07/22/21 12:08 Aerobic Blood Culture - Preliminary Blood No growth in Aerobic bottle after 48 hours. Anaerobic Blood Culture - Preliminary No growth in Anaerobic bottle after 48 hours. 07/22/21 12:00 Aerobic Blood Culture - Preliminary Blood No growth in Aerobic bottle after 48 hours. Anaerobic Blood Culture - Preliminary No growth in Anaerobic bottle after 48 hours. Electrocardiogram Date: 07/21/21 Findings: + NSR @ Chest X-Ray Date: 07/22/21 XR chest 2V PA/lateral HISTORY: fever COMPARISON: Chest 04/09/2021. FINDINGS: No pneumothorax. The heart is normal in size. The right lung is clear. There is a trace left pleural effusion. Left basilar linear densities are also noted. The left upper lung zone is clear. IMPRESSION: Trace left pleural effusion with associated left basilar linear densities. This may represent atelectasis or a pneumonia. Recommend follow-up to ensure resolution. ACT 112: Negative or not required by law. Electronically signed by: William Bashir M.D. 07/22/2021 2:45 PM Dictated:07/22/21 1437 Transcribed: 07/22/21 143
--- NOTE | 2021-07-26 14:18 | Hospitalist Progress Note ---
Date of Service July 26, 2021 Assessment & Plan (1) Acute pancreatitis: Plan: Acute pancreatitis likely secondary to gall bladder disease, but may be alcohol related. -- MRCP 07/24/21 - gallbladder distension and sludge - suspect this is more likely the cause of his ongoing pancreatitis than his alcohol intake despite bilirubin and WBC improving without intervention -- Appreciate GI consult and recommendations. -- ERCP done 07/25/21; The endoscopic ultrasound was notable for a 3 to 4 mm common bile duct without evidence of filling material within it. The gallbladder was sludge filled with evidence of wall thickening. -- No RUQ pain to suggest acute cholangitis and bilirubin and WBC improving (likely secondary to pancreatitis alone). -- Blood cultures negative. -- Oxycodone 5 mg every 4 as needed for moderate pain. -- Dilaudid 0.5 mg IV every 2 for severe pain. -- Continue IVF's, clear liquid diet. -- Continue IV Unasyn. -- Surgical consultation appreciated, plan is to proceed with an elective cholecystectomy on 07/29/21. (2) Gall bladder disease: Plan: -- Manage as outlined above. (3) Prediabetes: Plan: -- BSG's remain well controlled. (4) Hypokalemia: Plan: Serum K is 3.2 mmol/L today. -- Continue oral supplement. -- Monitor daily labs. Admission and Anticipated Discharge Date Admission Date: July 21, 2021 Supervising Physician Co-Signing Physician Notes chart reviewed, naz [facility] PAC Subjective Mr. aGllegos is a 70 year old with a history of GERD and Prediabetes who was admitted with Acute Pancreatitis and further evaluation today revealed gall bladder sludge/gall bladder disease. GI is recommending a Surgical Consult and IV Antibiotics. Patient is currently being seen in room 388. He has not had any fevers or chills in > 24 hours. He denies any nausea or vomiting -- he is tolerating a clear liquid diet. He still has upper abdominal discomfort from time to time. Plan is to proceed with elective cholecystectomy on Thursday. Anesthesia met with the patient. Review of Systems Review of Systems: 10 point ROS completed and is negative with the exception of what is mentioned in the HPI. Physical Exam Physical Exam: GENERAL: Patient in no acute distress. HEENT: Head is atraumatic, normocephalic. Sclerae anicteric. EOM's intact. Facies symmetric. No perioral cyanosis. NECK: No JVD. JVP is not elevated. Carotid upstrokes are + 2 bilaterally. No bruits are noted. CHEST/LUNGS: Clear to auscultation throughout all lung rodríguez. No wheezes, rales, or crackles. CVS: S1 and S2 are regular without murmurs, gallops, or rubs. PMI is nondisplaced. No lifts, heaves, or thrills. No abdominal aortic or renal bruits. ABDOMINAL EXAM: Bowel sounds are present. Tenderness to palpation in mid epigastrium, no guarding or rigidity. EXTREMITIES: No clubbing or cyanosis. No edema. Intact posterior tibial and radial pulses bilaterally. NEUROLOGIC EXAM: Patient is awake, alert, and oriented. Pleasant and cooperative. Answers questions appropriately. Speech is clear. Normal movement in all 4 extremities. Results & Data Results & Data ([facility]) Vital Signs (Past 12 Hours) Vital Signs Temp Pulse Resp BP Pulse Ox 07/26/21 07:50 36.9 C 64 16 161/83 H 94 07/26/21 02:49 37.4 C 67 16 136/70 95 Laboratory Results Laboratory Results - last 24 hr 07/26/21 05:31 Sodium 137 Potassium 3.2 L Chloride 105 Carbon Dioxide 23 Anion Gap 9 BUN 15 Creatinine 0.72 Est Cr Clr Drug Dosing 92.4 Est GFR ( Amer) 109.5 Est GFR (Non-Af Amer) 94.5 BUN/Creatinine Ratio 20.8 H Glucose 102 H Calcium 8.1 L Magnesium 1.8 Diagnostic Findings Patient underwent upper endoscopy and endoscopic ultrasound this afternoon 07/25/21. The upper endoscopy was within normal limits. The endoscopic ultraso und was notable for a 3 to 4 mm common bile duct without evidence of filling material within it. The gallbladder was sludge filled with evidence of wall thickening. Recommendations per GI: -- Patient may have a clear liquid diet. -- Consider a general surgery consultation as the patient may benefit from cholecystectomy. Medications Administered Medications famotidine 20 mg tablet (Pepcid) 20 mg PO QAM 07/19/18 [History Confirmed 07/21/21] fexofenadine 60 mg tablet 60 mg PO BID 07/19/18 [History Confirmed 07/21/21] multivitamin 1 tab PO QAM 07/19/18 [History Confirmed 07/21/21] triamcinolone acetonide 55 mcg nasal spray aerosol (Nasacort) 1 spray INTRANASAL HS 07/19/18 [History Confirmed 07/21/21] albuterol sulfate 90 mcg/actuation aerosol inhaler (Ventolin HFA) 1 inh INHALATION QID PRN #18 g 03/13/20 [Rx Confirmed 07/21/21] zolpidem 5 mg tablet 5 mg PO HS PRN #90 tab 10/09/20 [Rx Confirmed 07/21/21] cholecalciferol (vitamin D3) 50 mcg (2,000 unit) capsule 50 mcg PO QAM 04/09/21 [History Confirmed 07/21/21] omeprazole 20 mg tablet,delayed release 20 mg PO DAILY@1600 07/21/21 [History Confirmed 07/21/21] Home Medications Acetaminophen (Acetaminophen 325 Mg Tab) 650 mg PO Q4H PRN PRN Reason: Pain or Fever Stop: 08/20/21 14:49 Last Admin: 07/25/21 17:55 Dose: 650 mg Documented by: Albuterol (Albuterol Hfa 8 Gm Inhaler) 1 puffs INH QIDR PRN PRN Reason: shortness of breath or wheezing Stop: 08/20/21 14:49 Enoxaparin Sodium (Enoxaparin Inj 40 Mg/0.4 Ml Syr) 40 mg SQ QPM [facility] Stop: 08/20/21 20:59 Last Admin: 07/25/21 21:17 Dose: 40 mg Documented by: Famotidine (Famotidine 20 Mg Tab) 20 mg PO QAM [facility] Stop: 08/20/21 14:49 Last Admin: 07/26/21 07:58 Dose: 20 mg Documented by: Fexofenadine HCl (Fexofenadine 60 Mg Tab) 60 mg PO BID [facility]NE-MARIE Stop: 08/20/21 14:49 Last Admin: 07/26/21 07:58 Dose: 60 mg Documented by: Hydromorphone HCl (Hydromorphone Inj 0.5 Mg/0.5 Ml Syr) 0.5 mg IV Q4 PRN PRN Reason: Severe Pain Stop: 08/04/21 14:49 Last Admin: 07/22/21 05:09 Dose: 0.5 mg Documented by: Lactated Ringer's (Lr) 1,000 mls @ 75 mls/hr IV .[id number] [facility] Stop: 08/20/21 10:44 Last Admin: 07/26/21 07:57 Dose: 75 mls/hr Documented by: Ampicillin Sodium/Sulbactam Sodium 1,500 mg/ Sodium Chloride 104 mls @ 200 mls/hr IV Q6H [facility]; Protocol Stop: 08/04/21 15:59 Last Infusion: 07/26/21 10:40 Dose: Infused Documented by: Ondansetron HCl (Ondansetron Inj 2 Mg/Ml 2 Ml Vial) 4 mg IV Q6H PRN PRN Reason: Nausea Stop: 08/20/21 14:49 Oxycodone HCl (Oxycodone Hcl Ir 5 Mg Tab (Immediate Release)) 5 mg PO Q4 PRN PRN Reason: Moderate Pain Stop: 08/04/21 14:49 Last Admin: 07/26/21 13:05 Dose: 5 mg Documented by: Pantoprazole Sodium (Pantoprazole 40 Mg Tab) 40 mg PO DAILY@1600 ANNE-MARIE; Protocol Stop: 08/20/21 15:59 Last Admin: 07/25/21 16:05 Dose: 40 mg Documented by: Polyethylene Glycol (Polyethylene (Miralax) 17 Gm Pack) 17 gm PO BID [facility] Stop: 08/23/21 20:59 Last Admin: 07/26/21 07:57 Dose: 17 gm Documented by: Potassium Chloride (Potassium Chloride Crtab 20 Meq Tabcr) 20 meq PO BID17 [facility] Stop: 08/24/21 16:59 Last Admin: 07/26/21 07:57 Dose: 20 meq Documented by: Simethicone (Simethicone 80 Mg Chew) 80 mg PO Q6H PRN PRN Reason: bloating Stop: 08/21/21 14:45 Last Admin: 07/24/21 14:01 Dose: 80 mg Documented by: Triamcinolone Acetonide (Triamcinolone Acet Nasal [place] 10.8ml Btl) 1 sprays NA HS [facility] Stop: 08/20/21 20:59 Last Admin: 07/25/21 21:18 Dose: 1 sprays Documented by: Zolpidem Tartrate (Zolpidem Tartrate 5 Mg Tab) 5 mg PO HS PRN PRN Reason: Sleep Stop: 08/20/21 14:49 PG Care Time/CCT Total # of Minutes Spent Total Time Spent with Patient: Total time spent is greater than 50% in coordination of care (as documented) at patient's floor/unit and/or counseling patient:22 Coding Level of Care Code 95250 Subseq Hosp Care Lvl 3 Diagnoses Acute pancreatitis K85.90 Acute pancreatitis complication: no infection or necrosis Pancreatitis type: unspecified pancreatitis type Gall bladder disease K82.9 Prediabetes R73.03 Hypokalemia E87.6 Time Spent (min) 36 (1) Acute pancreatitis Acute pancreatitis complication: no infection or necrosis Pancreatitis type: unspecified pancreatitis type Qualified Code(s): K85.90 - Acute pancreatitis without necrosis or infection, unspecified
[2021-07-26] MEDS: PANTOprazole 40 MG TAB PO SCH (16:21)
[2021-07-26] MEDS: ENOXAPARIN INJ 40 MG/0.4 ML SYR SQ SCH (21:24)
[2021-07-26] MEDS: TRIAMCINOLONE ACET NASAL SPRAY 10.8ML BTL SCH (21:25)
[2021-07-27] MEDS: AMPICILLIN/SULBACTAM SOD 1,500 MG in 0.9 % SODIUM CHLORIDE 100 ML IV SCH ×4 (03:59→21:12)
[2021-07-27] MEDS: oxyCODONE HCL IR 5 MG TAB (IMMEDIATE RELEASE) PO PRN ×5 (03:59→23:30)
[2021-07-27 06:48] LABS: BUN Creatinine Ratio 15.4 (10-20); Calcium 8.3 mg/dl (8.5-10.1); Creatinine Clr Calc Pharmacy 85.3 ml/min; Est GFR (Non-African American) 91.5 ml/min; Magnesium 1.9 mg/dl (1.7-2.4); Potassium 3.6 mmol/L (3.5-5.1)
--- NOTE | 2021-07-27 08:57 | Surgery Progress Note ---
Date of Service July 27, 2021 Assessment & Plan (1) Acute pancreatitis: Plan: Patient here with acute pancreatitis Imaging has revealed gallbladder sludge and GB wall thickening; no cholelithiasis. GI performed EUS & confirmed findings Continues with epigastric pain to palpation, non tender in RUQ Continue clear liquids over weekend allowing patient to recover from pancreatitis. Make NPO thursday at [facility] On the schedule for lap mila on Thursday Admission and Anticipated Discharge Date Admission Date: July 21, 2021 Supervising Physician Co-Signing Physician Notes pnt S&E, agree with above. pancreatitis, symptoms improved but still present. Will plan for cholecystectomy thursday. Subjective Patient still endorsing pain in upper abdomen, radiating into back some. Not much better nor worse than previous. He is tolerating clear liquids. No n/v. Physical Exam Physical Exam: awake/alert, sitting up in bed Respiratory: normal respiratory effort Gastrointestinal (Abdomen): Percussion/Palpation: + abdomen tender (in epigastric/L upper abd) and abdomen soft Results & Data ([facility]) Vital Signs (Past 12 Hours) Vital Signs Temp Pulse Resp BP Pulse Ox 07/27/21 08:00 36.7 C 67 16 152/81 H 93 07/26/21 21:27 36.7 C 63 14 153/81 H 96 PG Care Time/CCT Total # of Minutes Spent Total Time Spent with Patient: Total time spent is greater than 50% in coordination of care (as documented) at patient's floor/unit and/or counseling patient: Coding Level of Care Code 96939 Subseq Hosp Care Lvl 1 Diagnoses Acute pancreatitis K85.90 Acute pancreatitis complication: no infection or necrosis Pancreatitis type: unspecified pancreatitis type (1) Acute pancreatitis Acute pancreatitis complication: no infection or necrosis Pancreatitis type: unspecified pancreatitis type Qualified Code(s): K85.90 - Acute pancreatitis without necrosis or infection, unspecified
[2021-07-27] MEDS: FEXOFENADINE 60 MG TAB PO SCH ×2 (09:15→21:14)
[2021-07-27] MEDS: POLYETHYLENE (MIRALAX) 17 GM PACK PO SCH ×2 (09:15→21:11)
[2021-07-27] MEDS: FAMOTIDINE 20 MG TAB PO SCH (09:15)
[2021-07-27] MEDS: POTASSIUM CHLORIDE CRTAB 20 MEQ TABCR PO SCH ×2 (09:15→16:30)
[2021-07-27] MEDS: LACTATED RINGER'S 1,000 ML IV SCH ×2 (10:07→23:31)
[2021-07-27] MEDS: PANTOprazole 40 MG TAB PO SCH (16:30)
--- NOTE | 2021-07-27 17:16 | Hospitalist Progress Note ---
Date of Service July 27, 2021 Assessment & Plan (1) Acute pancreatitis: Plan: Acute pancreatitis likely secondary to gall bladder disease, but may be alcohol related. -- MRCP 07/24/21 - gallbladder distension and sludge - suspect this is more likely the cause of his ongoing pancreatitis than his alcohol intake despite bilirubin and WBC improving without intervention -- Appreciate GI consult and recommendations. -- ERCP done 07/25/21; The endoscopic ultrasound was notable for a 3 to 4 mm common bile duct without evidence of filling material within it. The gallbladder was sludge filled with evidence of wall thickening. -- No RUQ pain to suggest acute cholangitis and bilirubin and WBC improving (likely secondary to pancreatitis alone). -- Blood cultures negative. -- Oxycodone 5 mg every 4 as needed for moderate pain. -- Dilaudid 0.5 mg IV every 2 for severe pain. -- Continue IVF's, clear liquid diet. -- Continue IV Unasyn. -On 07/27/21: pain appears to be controlled. continue IVF as stated above -- Surgical consultation appreciated, plan is to proceed with an elective cholecystectomy on 07/29/21. (2) Gall bladder disease: Plan: -- Manage as outlined above. (3) Prediabetes: Plan: -- BSG's remain well controlled. (4) Hypokalemia: Plan: continue to replenish, will recheck in AM. -- Continue oral supplement. -- Monitor daily labs. Admission and Anticipated Discharge Date Admission Date: July 21, 2021 Subjective 70 yo male reports no new symptoms. Patient states he continues to have abdominal pain but it is milder. Review of Systems Review of Systems: All systems reviewed & are unremarkable except as noted in HPI & below Physical Exam Physical Exam: GENERAL: Patient in no acute distress. HEENT: Head is atraumatic, normocephalic. Sclerae anicteric. EOM's intact. Facies symmetric. No perioral cyanosis. NECK: No JVD. JVP is not elevated. Carotid upstrokes are + 2 bilaterally. No bruits are noted. CHEST/LUNGS: Clear to auscultation throughout all lung rodríguez. No wheezes, rales, or crackles. CVS: S1 and S2 are regular without murmurs, gallops, or rubs. PMI is nondisplaced. No lifts, heaves, or thrills. No abdominal aortic or renal bruits. ABDOMINAL EXAM: Bowel sounds are present. Tenderness to palpation in mid epigastrium, no guarding or rigidity. EXTREMITIES: No clubbing or cyanosis. No edema. Intact posterior tibial and radial pulses bilaterally. NEUROLOGIC EXAM: Patient is awake, alert, and oriented. Pleasant and cooperative. Answers questions appropriately. Speech is clear. Normal movement in all 4 extremities. Results & Data Results & Data ([facility]) Vital Signs (Past 12 Hours) Vital Signs Temp Pulse Resp BP Pulse Ox 07/27/21 15:50 36.5 C 59 L 16 161/83 H 96 07/27/21 08:00 36.7 C 67 16 152/81 H 93 PG Care Time/CCT Total # of Minutes Spent Total Time Spent with Patient: Total time spent is greater than 50% in coordination of care (as documented) at patient's floor/unit and/or counseling patient: Coding Level of Care Code 52934 Subseq Hosp Care Lvl 2 Diagnoses Acute pancreatitis K85.90 Acute pancreatitis complication: no infection or necrosis Pancreatitis type: unspecified pancreatitis type Gall bladder disease K82.9 Prediabetes R73.03 Hypokalemia E87.6 Time Spent (min) 25 (1) Acute pancreatitis Acute pancreatitis complication: no infection or necrosis Pancreatitis type: unspecified pancreatitis type Qualified Code(s): K85.90 - Acute pancreatitis without necrosis or infection, unspecified
[2021-07-27] MEDS: ENOXAPARIN INJ 40 MG/0.4 ML SYR SQ SCH (21:15)
[2021-07-27] MEDS: TRIAMCINOLONE ACET NASAL SPRAY 10.8ML BTL SCH (21:15)
[2021-07-28] MEDS: AMPICILLIN/SULBACTAM SOD 1,500 MG in 0.9 % SODIUM CHLORIDE 100 ML IV SCH ×4 (04:34→22:11)
[2021-07-28] MEDS: oxyCODONE HCL IR 5 MG TAB (IMMEDIATE RELEASE) PO PRN ×5 (05:15→23:36)
[2021-07-28 07:28] LABS: Basophils # (auto) 0.01 K/uL (0-0.2); Basophils % (auto) 0.1 %; Eosinophils # (auto) 0.13 K/uL (0-0.5); Eosinophils % (auto) 1.6 %; Hematocrit (blood only) 36.3 % (42-52); Hemoglobin 12.3 g/dL (14.0-18.0); Immature Granulocytes # (auto) 0.02 K/uL (0.00-0.02); Immature Granulocytes % (auto) 0.2 %; Lymphocytes # (auto) 1.19 K/uL (1.2-3.4); Lymphocytes % (auto) 14.7 %; Mean Corpuscular Hemoglobin 29.6 pg (25-34); Mean Corpuscular Hgb Conc 33.9 g/dL (32-36); Mean Corpuscular Volume 87.3 fL (80-100); Mean Platelet Volume 10.3 fL (7.4-10.4); Monocytes # (auto) 1.05 K/uL (0.11-0.59); Monocytes % (auto) 12.9 %; Neutrophils # (auto) 5.72 K/uL (1.4-6.5); Neutrophils % (auto) 70.5 %; Platelet Count 309 K/uL (130-400); RDW Coefficient of Variation 13.5 % (11.5-14.5); Red Blood Count 4.16 M/uL (4.7-6.1); White Blood Count 8.12 K/uL (4.8-10.8)
[2021-07-28 07:50] LABS: Albumin Globulin Ratio 1.1 (0.9-2); Albumin Level 3.1 gm/dl (3.4-5.0); BUN Creatinine Ratio 13.6 (10-20); Calcium 8.4 mg/dl (8.5-10.1); Creatinine Clr Calc Pharmacy 82.1 ml/min; Est GFR (African American) 104.4 ml/min; Globulin 2.9 gm/dl (2.5-4.0); Potassium 3.8 mmol/L (3.5-5.1)
--- NOTE | 2021-07-28 09:13 | Hospitalist Progress Note ---
Date of Service July 28, 2021 Assessment & Plan (1) Acute pancreatitis: Plan: Acute pancreatitis likely secondary to gall bladder disease, but may be alcohol related. -- MRCP 07/24/21 - gallbladder distension and sludge - suspect this is more likely the cause of his ongoing pancreatitis than his alcohol intake despite bilirubin and WBC improving without intervention -- Appreciate GI consult and recommendations. -- ERCP done 07/25/21; The endoscopic ultrasound was notable for a 3 to 4 mm common bile duct without evidence of filling material within it. The gallbladder was sludge filled with evidence of wall thickening. -- No RUQ pain to suggest acute cholangitis and bilirubin and WBC improving (likely secondary to pancreatitis alone). -- Blood cultures negative. -- Oxycodone 5 mg every 4 as needed for moderate pain. -- Dilaudid 0.5 mg IV every 2 for severe pain. -- Continue IVF's, clear liquid diet. -- Continue IV Unasyn. -On 07/28/21: pain appears to be controlled. continue IVF as stated above -- Surgical consultation appreciated, plan is to proceed with an elective cholecystectomy on 07/29/21. --Will be NPO after midnight. (2) Gall bladder disease: Plan: -- Manage as outlined above. (3) Prediabetes: Plan: -- BSG's remain well controlled. (4) Hypokalemia: Plan: resolved. -- Continue oral supplement. -- Monitor daily labs. Admission and Anticipated Discharge Date Admission Date: July 21, 2021 Subjective Patient reports tolerating his diet. He does feel intermittent abdominal distention and abdominal pain in his epigastric region which radiates to both flanks. He reports thought that his intensity has decreased from yesterday. Review of Systems Review of Systems: All systems reviewed & are unremarkable except as noted in HPI & below Physical Exam Physical Exam: GENERAL: Patient in no acute distress. HEENT: Head is atraumatic, normocephalic. Sclerae anicteric. EOM's intact. Facies symmetric. No perioral cyanosis. NECK: No JVD. JVP is not elevated. Carotid upstrokes are + 2 bilaterally. No bruits are noted. CHEST/LUNGS: Clear to auscultation throughout all lung rodríguez. No wheezes, rales, or crackles. CVS: S1 and S2 are regular without murmurs, gallops, or rubs. PMI is nondisplaced. No lifts, heaves, or thrills. No abdominal aortic or renal bruits. ABDOMINAL EXAM: Bowel sounds are present. Tenderness to palpation in mid epigastrium, no guarding or rigidity. EXTREMITIES: No clubbing or cyanosis. No edema. Intact posterior tibial and radial pulses bilaterally. NEUROLOGIC EXAM: Patient is awake, alert, and oriented. Pleasant and cooperative. Answers questions appropriately. Speech is clear. Normal movement in all 4 extremities. Results & Data Results & Data ([facility]) Vital Signs (Past 12 Hours) Vital Signs Temp Pulse Resp BP Pulse Ox 07/28/21 07:47 36.7 C 63 16 155/82 H 96 07/27/21 21:50 37.1 C 60 16 154/85 H 95 PG Care Time/CCT Total # of Minutes Spent Total Time Spent with Patient: Total time spent is greater than 50% in coordination of care (as documented) at patient's floor/unit and/or counseling patient: Coding Level of Care Code 72638 Subseq Hosp Care Lvl 2 Diagnoses Acute pancreatitis K85.90 Acute pancreatitis complication: no infection or necrosis Pancreatitis type: unspecified pancreatitis type Gall bladder disease K82.9 Prediabetes R73.03 Hypokalemia E87.6 (1) Acute pancreatitis Acute pancreatitis complication: no infection or necrosis Pancreatitis type: unspecified pancreatitis type Qualified Code(s): K85.90 - Acute pancreatitis without necrosis or infection, unspecified
[2021-07-28] MEDS: POLYETHYLENE (MIRALAX) 17 GM PACK PO SCH ×2 (09:37→19:35)
[2021-07-28] MEDS: FAMOTIDINE 20 MG TAB PO SCH (09:37)
[2021-07-28] MEDS: POTASSIUM CHLORIDE CRTAB 20 MEQ TABCR PO SCH ×2 (09:37→16:22)
[2021-07-28] MEDS: FEXOFENADINE 60 MG TAB PO SCH ×2 (09:37→19:36)
[2021-07-28] MEDS: LACTATED RINGER'S 1,000 ML IV SCH (13:44)
[2021-07-28] MEDS: PANTOprazole 40 MG TAB PO SCH (16:21)
[2021-07-28] MEDS: ENOXAPARIN INJ 40 MG/0.4 ML SYR SQ SCH (19:35)
[2021-07-28] MEDS: TRIAMCINOLONE ACET NASAL SPRAY 10.8ML BTL SCH (19:36)
[2021-07-29] MEDS: AMPICILLIN/SULBACTAM SOD 1,500 MG in 0.9 % SODIUM CHLORIDE 100 ML IV SCH ×4 (03:59→21:36)
[2021-07-29] MEDS: LACTATED RINGER'S 1,000 ML IV SCH ×2 (03:59→12:37)
[2021-07-29] MEDS: POLYETHYLENE (MIRALAX) 17 GM PACK PO SCH ×2 (08:05→21:35)
[2021-07-29] MEDS: FEXOFENADINE 60 MG TAB PO SCH ×2 (08:06→21:37)
[2021-07-29] MEDS: POTASSIUM CHLORIDE CRTAB 20 MEQ TABCR PO SCH ×2 (08:06→16:41)
--- NOTE | 2021-07-29 08:31 | History & Physical Bridge Note ---
Date of Service July 29, 2021 History & Physical Bridge Note I have examined the patient, reviewed the History & Physical and in the interval since the performance of the History & Physical I have noted the following changes of clinical significance: no changes noted
--- NOTE | 2021-07-29 08:59 | Hospitalist Progress Note ---
Date of Service July 29, 2021 Assessment & Plan (1) Acute pancreatitis: Plan: Acute pancreatitis likely secondary to gall bladder disease, but may be alcohol related. -- MRCP 07/24/21 - gallbladder distension and sludge - suspect this is more likely the cause of his ongoing pancreatitis than his alcohol intake despite bilirubin and WBC improving without intervention -- Appreciate GI consult and recommendations. -- ERCP done 07/25/21; The endoscopic ultrasound was notable for a 3 to 4 mm common bile duct without evidence of filling material within it. The gallbladder was sludge filled with evidence of wall thickening. -- No RUQ pain to suggest acute cholangitis and bilirubin and WBC improving (likely secondary to pancreatitis alone). -- Blood cultures negative. -- Oxycodone 5 mg every 4 as needed for moderate pain. -- Dilaudid 0.5 mg IV every 2 for severe pain. -- Continue IVF's, clear liquid diet. -- Continue IV Unasyn. -On 07/29/21: pain appears to be controlled. continue IVF as stated above -Awaiting cholecystectomy. -- Surgical consultation appreciated, plan is to proceed with an elective cholecystectomy on 07/29/21. (2) Gall bladder disease: Plan: -- Manage as outlined above. (3) Prediabetes: Plan: -- BSG's remain well controlled. (4) Hypokalemia: Plan: resolved. -- Continue oral supplement. -- Monitor daily labs. (5) S/P laparoscopic cholecystectomy: Admission and Anticipated Discharge Date Admission Date: July 21, 2021 Subjective Patient reports feeling better. He is awaiting his surgical procedure this AM. Patient reports his pain is better controlled. He has not taken any pain medicine today. Pain is mild. Review of Systems Review of Systems: All systems reviewed & are unremarkable except as noted in HPI & below Physical Exam Physical Exam: GENERAL: Patient in no acute distress. HEENT: Head is atraumatic, normocephalic. Sclerae anicteric. EOM's intact. Facies symmetric. No perioral cyanosis. NECK: No JVD. JVP is not elevated. Carotid upstrokes are + 2 bilaterally. No bruits are noted. CHEST/LUNGS: Clear to auscultation throughout all lung rodríguez. No wheezes, rales, or crackles. CVS: S1 and S2 are regular without murmurs, gallops, or rubs. PMI is nondisplaced. No lifts, heaves, or thrills. No abdominal aortic or renal bruits. ABDOMINAL EXAM: Bowel sounds are present. Tenderness to palpation in mid epigastrium, no guarding or rigidity. EXTREMITIES: No clubbing or cyanosis. No edema. Intact posterior tibial and radial pulses bilaterally. NEUROLOGIC EXAM: Patient is awake, alert, and oriented. Pleasant and cooperative. Answers questions appropriately. Speech is clear. Normal movement in all 4 extremities. Results & Data Results & Data ([facility]) Vital Signs (Past 12 Hours) Vital Signs Temp Pulse Pulse Resp BP Pulse Ox 07/29/21 07:35 37 C 61 16 144/82 H 94 07/29/21 07:12 37 C 61 16 144/82 H 94 07/28/21 23:00 37.1 C 63 16 146/80 H 95 PG Care Time/CCT Total # of Minutes Spent Total Time Spent with Patient: Total time spent is greater than 50% in coordination of care (as documented) at patient's floor/unit and/or counseling patient: Coding Level of Care Code 42553 Subseq Hosp Care Lvl 2 Diagnoses Acute pancreatitis K85.90 Acute pancreatitis complication: no infection or necrosis Pancreatitis type: unspecified pancreatitis type Gall bladder disease K82.9 Prediabetes R73.03 Hypokalemia E87.6 S/P laparoscopic cholecystectomy Z90.49 (1) Acute pancreatitis Acute pancreatitis complication: no infection or necrosis Pancreatitis type: unspecified pancreatitis type Qualified Code(s): K85.90 - Acute pancreatitis without necrosis or infection, unspecified
[2021-07-29] MEDS ORDERED: BUPIVACAINE 0.5 % 5 MG/1 ML MPF 30ML VIAL ONE (09:47)
[2021-07-29] MEDS ORDERED: fentaNYL citrate 100 MCG/2 ML VIAL ONE ×2 (09:49)
[2021-07-29] MEDS ORDERED: MIDAZOLAM HCL 1 MG/ML 2ML VIAL ONE (09:53)
[2021-07-29] MEDS ORDERED: PROMETHAZINE HCL 12.5 MG in SODIUM CHLORIDE 0.9% 50 ML IV PRN ×2 (09:59→12:28)
[2021-07-29] MEDS ORDERED: ONDANSETRON INJ 2 MG/ML 2 ML VIAL IV PRN (09:59)
[2021-07-29] MEDS ORDERED: HYDROmorphone INJ 2 MG/ML SYR/VIAL IV PRN (09:59)
[2021-07-29] MEDS ORDERED: ATROPINE SULFATE 0.1 MG/ML 10ML SYR IV PRN (09:59)
[2021-07-29] MEDS ORDERED: ePHEDrine sulfate 50 MG/ML AMP IV PRN (09:59)
[2021-07-29] MEDS ORDERED: PROPOFOL IV EMULSION 10 MG/ML 20 ML VIAL IV ONE (10:49)
[2021-07-29] MEDS ORDERED: ONDANSETRON INJ 2 MG/ML 2 ML VIAL ONE (10:50)
[2021-07-29] MEDS ORDERED: DEXAMETHASONE SOD INJ 4 MG/ML VIAL ONE (10:50)
[2021-07-29] MEDS ORDERED: ROCURONIUM BROMIDE 10 MG/ML 5 ML VIAL IV ONE (10:50)
[2021-07-29] MEDS ORDERED: NEOSTIGMINE METHYLSULFATE 1 MG/ML 10ML VIAL ONE (10:51)
[2021-07-29] MEDS ORDERED: LIDOCAINE 2% 2 ML VIAL/AMP(20MG/ML) INFIL ONE (10:51)
--- NOTE | 2021-07-29 10:52 | Post Operative Brief Note ---
PG Immediate Post Op with CF Date of Surgery July 29, 2021 Pre & Post Diagnosis Operation Date: 07/25/21 10:55 Pre-Op Diagnosis: PANCREATITIS Post-Op Diagnosis: Pancreatitis with gallbladder sludge Operation Date: 07/29/21 10:30 Pre-Op Diagnosis: Acute Pancreatitis Post-Op Diagnosis: Acute Pancreatitis, chronic cholecystitis I identified the patient and participated in the time-out.: Yes Procedure Operation Date: 07/25/21 10:55 Actual Procedures p Esophagogastroduodenoscopy - Smith Brewer DO p Endoscopic Ultrasonography Upper - Smith Brewer DO Operation Date: 07/29/21 10:30 Actual Procedures p Laparoscopic Cholecystectomy - Ha Sanchez MD, FACS Surgeon Ha Sanchez MD, FACS Maintenance Service Technician Twila Jean Baptiste Estimated Blood Loss 10 Findings Consistent with Post-Op Diagnosis Chronic scar tissue involving the gallbladder with significant distention and sludge Specimens Specimen Description: A.) Gallbladder and Contents
[2021-07-29] MEDS ORDERED: ACETAMINOPHEN 1,000 MG/100 ML VIAL IV ONE (10:53)
[2021-07-29] MEDS: fentaNYL citrate 100 MCG/2 ML VIAL IV PRN ×2 (11:22→11:34)
--- NOTE | 2021-07-29 11:42 | Operative Report (OR) ---
DATE OF OPERATION: 07/29/2021. NAME OF OPERATION: Laparoscopic cholecystectomy. PREOPERATIVE DIAGNOSES: Pancreatitis and gallbladder sludge. STAFF SURGEON: Ha Sanchez MD. NURSE TECH: Bienvenido Jean Baptiste PA-C. ANESTHESIA: General. DESCRIPTION OF PROCEDURE: The patient was brought in the operating room, placed on the operating tab le in supine position. His abdomen was prepped and draped in the usual fashion. My administrative sales assistant helped with prepping, draping, removal of the gallbladder and closure of the wound. An incision was made j ust above the umbilicus using 0.5% plain Marcaine to anesthetize all incisions. Incision was carried down to the fascia, placing a Veress needle producing pneumoperitoneum. An 11 mm port placed at thi s level, then under visualization, three 5 mm ports were placed, one cephalad and two laterally. Gallbladder was very distended. It was aspirated of bile, which appeared to be sludge-like. Dissect ion carried out to the sydnee hepatis. The patient did have scar tissue consistent with chronic mila cystitis, especially in the back wall of the gallbladder. Cystic duct and cystic artery were identifi ed, clipped and transected, then the gallbladder dissected away from the liver bed in the usual fashi on. It was placed in an Endobag. After appropriate irrigation and hemostasis, the Endobag was remov ed through the umbilical site. All ports were then removed. Fascia at the umbilicus closed using 0 Vicryl suture. Subcutaneous tissue reapproximated using 2-0 plain suture and the skin reapproximated using subcuticular 4-0 Monocryl with Dermabond. The patient was transferred to recovery room in sta ble condition. Job ID: [id number]
--- NOTE | 2021-07-29 12:17 | Anesthesiology Progress Note ---
Date of Service July 29, 2021 Anesthesia Post Procedure Vital Signs Vital Signs: Temp Pulse Pulse Resp BP Pulse Ox 07/29/21 11:55 36.2 C L 53 L 15 132/73 99 07/29/21 11:45 54 L 15 137/76 98 07/29/21 11:35 53 L 17 133/73 99 07/29/21 11:25 55 L 16 144/81 H 98 07/29/21 11:15 56 L 18 139/79 97 07/29/21 11:08 36 C L 59 L 20 145/81 H 99 07/29/21 09:16 36.7 C 66 65 18 147/85 H 96 07/29/21 07:35 37 C 61 16 144/82 H 94 07/29/21 07:12 37 C 61 16 144/82 H 94 07/28/21 23:00 37.1 C 63 16 146/80 H 95 07/28/21 14:41 36.3 C L 63 16 159/90 H 97 Pain Intensity Upper Abdomen: Pain Intensity: 4 Abdomen: Pain Intensity: 8 Transfer of Care Handoff Completed per policy Notes Mental Status: alert / awake / arousable and participated in evaluation Patient Amnestic to Procedure: Yes Nausea / Vomiting: adequately controlled Pain: adequately controlled Airway Patency, RR, SpO2: stable & adequate BP & HR: stable & adequate Hydration State: stable & adequate Anesthetic Complications: no major complications apparent
[2021-07-29] MEDS: FAMOTIDINE 20 MG TAB PO SCH (12:36)
[2021-07-29] MEDS: oxyCODONE HCL IR 5 MG TAB (IMMEDIATE RELEASE) PO PRN ×2 (12:54→21:36)
[2021-07-29] MEDS: SIMETHICONE 80 MG CHEW PO PRN (13:09)
[2021-07-29] MEDS: PANTOprazole 40 MG TAB PO SCH (16:41)
[2021-07-29] MEDS: HYDROmorphone INJ 0.5 MG/0.5 ML SYR IV PRN (16:42)
[2021-07-29] MEDS: TRIAMCINOLONE ACET NASAL SPRAY 10.8ML BTL SCH (21:36)
[2021-07-30] MEDS: LACTATED RINGER'S 1,000 ML IV SCH (02:03)
[2021-07-30] MEDS: AMPICILLIN/SULBACTAM SOD 1,500 MG in 0.9 % SODIUM CHLORIDE 100 ML IV SCH ×2 (03:27→09:10)
[2021-07-30 05:54] LABS: Basophils # (auto) 0.01 K/uL (0-0.2); Basophils % (auto) 0.1 %; Eosinophils # (auto) 0.02 K/uL (0-0.5); Eosinophils % (auto) 0.2 %; Hematocrit (blood only) 38.1 % (42-52); Hemoglobin 13.1 g/dL (14.0-18.0); Immature Granulocytes # (auto) 0.02 K/uL (0.00-0.02); Immature Granulocytes % (auto) 0.2 %; Lymphocytes # (auto) 1.11 K/uL (1.2-3.4); Lymphocytes % (auto) 11.9 %; Mean Corpuscular Hemoglobin 29.5 pg (25-34); Mean Corpuscular Hgb Conc 34.4 g/dL (32-36); Mean Corpuscular Volume 85.8 fL (80-100); Mean Platelet Volume 10.8 fL (7.4-10.4); Monocytes # (auto) 0.95 K/uL (0.11-0.59); Monocytes % (auto) 10.2 %; Neutrophils # (auto) 7.19 K/uL (1.4-6.5); Neutrophils % (auto) 77.4 %; Platelet Count 454 K/uL (130-400); RDW Coefficient of Variation 13.1 % (11.5-14.5); RDW Standard Deviation 41.5 fL (36.4-46.3); Red Blood Count 4.44 M/uL (4.7-6.1)
[2021-07-30 06:09] LABS: Albumin Globulin Ratio 1.2 (0.9-2); Albumin Level 3.2 gm/dl (3.4-5.0); BUN Creatinine Ratio 15.5 (10-20); Bilirubin Direct 0.2 mg/dl (0-0.2); Bilirubin,Total 0.8 mg/dl (0.2-1.0); Calcium 8.5 mg/dl (8.5-10.1); Creatinine Clr Calc Pharmacy 93.7 ml/min; Est GFR (African American) 110.2 ml/min; Est GFR (Non-African American) 95.1 ml/min; Globulin 2.7 gm/dl (2.5-4.0); Phosphorus 3.9 mg/dl (2.5-4.9); Potassium 3.8 mmol/L (3.5-5.1); Total Protein 5.9 gm/dl (6.0-8.3)
--- NOTE | 2021-07-30 06:28 | Surgery Progress Note ---
Date of Service July 30, 2021 Assessment & Plan (1) S/P laparoscopic cholecystectomy: Plan: Patient awake and alert taking some p.o. pain medicine Laboratories for this morning are pending Most likely can be discharged home from a surgical standpoint I will order a prescription for oxycodone Should have follow-up for his history of pancreatitis-unsure whether this was from sludge from the gallbladder Follow-up in our office-instructions written Admission and Anticipated Discharge Date Admission Date: July 21, 2021 Results & Data ([facility]) Vital Signs (Past 12 Hours) Vital Signs Temp Pulse Resp BP BP Pulse Ox 07/30/21 06:08 152/83 H 07/30/21 03:20 36.8 C 73 20 169/92 H 96 07/29/21 22:20 36.7 C 64 18 142/83 H 96 07/29/21 19:00 36.5 C 79 18 162/91 H 96 PG Care Time/CCT Total # of Minutes Spent Total Time Spent with Patient: Total time spent is greater than 50% in coordination of care (as documented) at patient's floor/unit and/or counseling patient: Coding Level of Care Code None Diagnoses S/P laparoscopic cholecystectomy Z90.49
[2021-07-30] MEDS: FAMOTIDINE 20 MG TAB PO SCH (07:53)
[2021-07-30] MEDS: FEXOFENADINE 60 MG TAB PO SCH (07:54)
[2021-07-30] MEDS: SIMETHICONE 80 MG CHEW PO PRN (07:54)
[2021-07-30] MEDS: POLYETHYLENE (MIRALAX) 17 GM PACK PO SCH (07:54)
[2021-07-30] MEDS: POTASSIUM CHLORIDE CRTAB 20 MEQ TABCR PO SCH (07:57)
[2021-07-30] MEDS ORDERED: HEPARIN SOD 5,000 UNIT/0.5 ML VIAL SQ SCH (09:00)
[2021-07-30 13:28] VITALS: PULSE 65; TEMP 98.1; O2SAT 94
[2021-07-30 15:21] VITALS: BP 156/90
--- NOTE | 2021-08-01 18:04 | Discharge Summary ---
Date of Service July 30, 2021 Principal Diagnosis Acute pancreatitis Discharge Exam GENERAL: Patient in no acute distress. HEENT: Head is atraumatic, normocephalic. Sclerae anicteric. EOM's intact. Facies symmetric. No perioral cyanosis. NECK: No JVD. JVP is not elevated. Carotid upstrokes are + 2 bilaterally. No bruits are noted. CHEST/LUNGS: Clear to auscultation throughout all lung rodríguez. No wheezes, rales, or crackles. CVS: S1 and S2 are regular without murmurs, gallops, or rubs. PMI is nondisplaced. No lifts, heaves, or thrills. No abdominal aortic or renal bruits. ABDOMINAL EXAM: Bowel sounds are present. decreased tenderness, no guarding or rigidity. EXTREMITIES: No clubbing or cyanosis. No edema. Intact posterior tibial and radial pulses bilaterally. NEUROLOGIC EXAM: Patient is awake, alert, and oriented. Pleasant and cooperative. Answers questions appropriately. Speech is clear. Normal movement in all 4 extremities. Discharge Data Allergies Allergy/AdvReac Type Severity Reaction Status Date / Time latex Allergy Unknown ITCHING Verified 07/21/21 08:16 Consultations 07/21/21 09:22 ED Decision to Admit Stat 07/24/21 08:23 Consult Gastroenterology Routine 07/25/21 14:22 Consult General Surgery Routine Procedures Performed Operation Date: 07/25/21 10:55 Actual Procedures p Esophagogastroduodenoscopy - Smith Brewer DO p Endoscopic Ultrasonography Upper - Smith Brewer DO Operation Date: 07/29/21 10:30 Actual Procedures p Laparoscopic Cholecystectomy - Ha Sanchez MD, FACS Ordered Studies 07/21/21 07:24 CT abd pelvis IV con only Stat 07/22/21 14:47 US liver Stat 07/24/21 07:51 MR MRCP Urgent 07/25/21 12:44 US upper EUS PACS images Routine Hospital Course (1) Acute pancreatitis: Acute pancreatitis likely secondary to gall bladder disease, but may be alcohol related. -- MRCP 07/24/21 - gallbladder distension and sludge - suspect this is more likely the cause of his ongoing pancreatitis than his alcohol intake despite bilirubin and WBC improving without intervention -- Appreciate GI consult and recommendations. -- ERCP done 07/25/21; The endoscopic ultrasound was notable for a 3 to 4 mm common bile duct without evidence of filling material within it. The gal lbladder was sludge filled with evidence of wall thickening. -- No RUQ pain to suggest acute cholangitis and bilirubin and WBC improving (likely secondary to pancreatitis alone). -- Blood cultures negative. -- Oxycodone 5 mg every 4 as needed for moderate pain. -- Dilaudid 0.5 mg IV every 2 for severe pain. -- Continue IVF's, clear liquid diet. -- Continue IV Unasyn. -On 07/29/21: pain appears to be controlled. continue IVF as stated above -s/p cholecystectomy. -On 07/30 tolerating diet, patient will be discharged. (2) Gall bladder disease: -- Manage as outlined above. (3) Prediabetes: -- BSG's remain well controlled. (4) Hypokalemia: resolved. -- Continue oral supplement. -- Monitor daily labs. (5) S/P laparoscopic cholecystectomy: Total Time Total Time Spent Total Time Spent (In Minutes): 32 Discharge Plan Discharge Items Patient Disposition: Home - Self-Care Reason For Visit: PANCREATITIS Discharge Diagnosis: Pancreatitis, chronic cholecystitis Activity: As commented below Activity Comment: Light activity for 3 weeks Lifting: No more than 10 pounds Bathing Comment: May shower Sexual Activity: When tolerated Exercise Comment: Wait 3 weeks Driving/Machine Use: Resume 3 days after discharge Non-emergency contact: Primary Care Provider and Surgeon Call non-emergency contact if: your pain is not controlled, your temperature is above 101 and your wound has increased drainage Follow-up/Referrals: Ha Sanchez MD, FACS [Physician] - (Per RN, patient wishes to schedule his own follow up.) Wayne Coleman MD [Primary Care Provider] - (Per RN, patient wishes to make his own follow up.) Diet: Low Fat Addtl Attending Provider Instructions: SPECIAL CARE INSTRUCTIONS: * Cover incisions and change daily for comfort/drainage. May leave uncovered with Dermabond * Avoid constipation- * May Use Senokot S and Milk of Magnesium twice daily as directed on the package * May use ibuprofen for pain as tolerated. * Expect some swelling and bruising. Call your doctor if: * Temperature above 101 degrees * Pain not relieved by pain medicine ordered * There is increased drainage or redness from any incision * You have any unanswered questions or concerns [phone]. FOLLOW UP VISIT: If not already scheduled, please call the office for a follow-up visit. For 2 weeksno sutures to remove OFFICE PHONE NUMBER: Dr. Sanchez Office Pending Studies at Discharge: Yes Studies:: surgical pathology Stand-Alone Forms: My [facility], Smoking Cessation Medications and DC Order Prescriptions: New oxycodone 5 mg tablet 5 - 10 mg PO Q6H PRN (Reason: pain) Qty: 30 RF: 0 simethicone [Mi-Acid Gas Relief(simethicon)] 80 mg Tablet,Chewable 80 mg PO Q6H Qty: 14 RF: 0 Continued albuterol sulfate [Ventolin HFA] 90 mcg/actuation HFA aerosol inhaler 1 inh inhalation QID PRN (Reason: shortness of breath or wheezing) Qty: 18 RF: 1 zolpidem 5 mg tablet 5 mg PO HS PRN (Reason: Sleep) Qty: 90 RF: 0 cholecalciferol (vitamin D3) 50 mcg (2,000 unit) capsule 50 mcg PO QAM RF: 0 multivitamin Tablet 1 tab PO QAM RF: 0 fexofenadine 60 mg Tablet 60 mg PO BID RF: 0 famotidine [Pepcid] 20 mg Tablet 20 mg PO QAM RF: 0 triamcinolone acetonide [Nasacort] 55 mcg Aerosol,Warriors Mark 1 spray INTRANASAL HS RF: 0 omeprazole 20 mg tablet,delayed release (DR/EC) 20 mg PO DAILY@1600 RF: 0 Discharge Orders: Discharge Order (Routine); Ordered 07/30/21 Ordered By: Agapito Zendejas/Other Patient Handouts: Low-Fat Cooking Tips, Adding Flavor to Low-Fat Meals Admission Data Admit Date/Time: 07/21/21 11:44 Attending Provider: Agapito Easley Admit Provider: Da Umaña Primary Care Provider: Wayne Coleman Other Providers: Da Umaña ; Remington Burnett ; Rodney Menard ; Jw Ansari ; Smith Brewer Other Interventions: Discharge Summary Assessment (RN) Last Done: 07/30/21 15:20 Coding Level of Care Code D/C DAY MANAGEMENT >30 MINS Diagnoses Acute pancreatitis K85.90 Acute pancreatitis complication: no infection or necrosis Pancreatitis type: unspecified pancreatitis type Gall bladder disease K82.9 Prediabetes R73.03 Hypokalemia E87.6 S/P laparoscopic cholecystectomy Z90.49
== END 2021-07-30 16:12 | disposition home or self-care (01) | DRG 418 ==
LOC: ED 07:02 → SUATTDRO 11:44 → 3N 11:44

== ENCOUNTER 2024-12-06 06:01 | Observation (INO) ==
--- NOTE | 2024-11-24 15:04 | Anesthesiology Consultation ---
Date of Service November 24, 2024 Assessment & Plan (1) Encounter for pre-operative examination: Infectious disease screening: Per assessment on 11/24/24- No known recent infectious disease contacts or current infectious disease symptoms. Chart Review Chart Review: Acceptable Risk for Surgery and Patient NOT seen in Pre Admission Testing History Surgery Operation Date: 12/06/24 07:30 Proposed Procedures p Robotic Assisted Laparoscopic Radical Retropubic Prostatectomy, Possible Open, Possible Pelvic Lymph Node Dissection - Sly Shannon MD Height/Weight Height: 5 ft 8 in Weight: 74.843 kg Allergies Allergy/AdvReac Type Severity Reaction Status Date / Time latex AdvReac Mild Itching Verified 11/24/24 15:01 Medications Home Medications Medication Instructions Recorded Confirmed Last Taken famotidine 20 mg tablet (Pepcid) 20 mg PO UD 07/19/18 11/24/24 08/01/23 multivitamin 1 tab PO QAM 07/19/18 11/24/24 08/01/23 albuterol sulfate 90 mcg/actuation 1 inh inhalation QID PRN shortness 06/24/23 11/24/24 07/28/23 aerosol inhaler (Ventolin HFA) of breath or wheezing #18 grams cholecalciferol (vitamin D3) 50 50 mcg PO Q2D 10/06/23 11/24/24 Unknown mcg (2,000 unit) capsule chlorpheniramine maleate 4 mg 4 mg PO Q12H 30 days #60 tabs 10/16/23 11/24/24 Unknown tablet (Allergy Relief (chlorpheniramine)) zolpidem 5 mg tablet 5 mg PO HS PRN Sleep #90 tabs 01/12/24 11/24/24 Unknown rosuvastatin 5 mg tablet (Crestor) 5 mg PO DAILY #90 tabs 07/01/24 11/24/24 Unknown benzonatate 200 mg capsule 200 mg PO BID PRN cough #30 caps 10/28/24 11/24/24 Unknown fluticasone furoate 100 1 inh inhalation DAILY #180 ea 10/28/24 11/24/24 Unknown mcg-vilanterol 25 mcg/dose inhalation powder (Breo Ellipta) ibuprofen 200 mg tablet (Advil) 400 mg PO Q6H PRN Pain 11/24/24 11/24/24 Unknown omeprazole 20 mg tablet,delayed 20 mg PO UD 11/24/24 11/24/24 Unknown release Past Medical History Medical History Adenomatous polyp of colon Cough [facility] pulm visit 10/28/24- "chronic cough likely secondary to asthma given his spirometry, and elevated exhaled nitric oxide as well as upper airway cough syndrome." GERD (gastroesophageal reflux disease) Hx of pancreatitis (2021) "Resolved" with lap mila Hyperlipidemia Prediabetes Patient denies A1C 11/10/24 6.0% Prostate cancer Seasonal allergies Past Family History Family History Father Diabetes Myocardial infarction Denies family history of Ovarian cancer Prostate cancer No family history of adverse response to anesthesia Breast cancer Colorectal cancer Past Surgical History Surgical History History of colonoscopy History of dental surgery tooth implant History of esophagogastroduodenoscopy (EGD) History of root canal procedure History of wisdom tooth extraction Hx laparoscopic cholecystectomy (07/29/21) Laparoscopic cholecystectomy Social History Smoking Status: Never smoker Do You Dip or Chew Tobacco: No Hx Alcohol Use: Yes Alcohol type: wine alcohol intake frequency: a few times a month Hx Substance Use: No substance use type: does not use Lab Results Anesthesia Preop Results Results Anesthesia Widget: WBC 5.07 K/ul (4.8-10.8) 11/10/24 Hgb 16.1 g/dl (14.0-18.0) 11/10/24 Hct 47.0 % (42.0-52.0) 11/10/24 Plt 242 K/uL (130-400) 11/10/24 Na 137 mmol/L (136-145) 11/10/24 K 4.3 mmol/L (3.5-5.1) 11/10/24 Cl 101 mmol/L (98-107) 11/10/24 CO2 31 mmol/L (21-32) 11/10/24 BUN 17 mg/dl (6-23) 11/10/24 Creat 1.05 mg/dl (0.6-1.4) 11/10/24 Glucose Level 112 mg/dl (70-99(Fasting)) H 11/10/24 HA1c 6.0 % (4.5-5.6) H 11/10/24 Testing Laboratory Results Urine culture (11/10/24): No growth Electrocardiogram Date: 11/10/24 NSR at 64bpm. "Normal ECG" Chest X-Ray Date: 11/10/24 FINDINGS: Cardiomediastinal and hilar silhouettes appear normal. No pneumothorax, pleural effusion or airspace consolidation. The bones appear grossly intact. Cholecystectomy. IMPRESSION: No acute process.
[2024-12-06] MEDS: LR 15ML/HR IV SCH (06:34)
[2024-12-06] MEDS: HEPARIN SOD 5,000 UNIT/0.5 ML VIAL SQ SCH ×2 (06:42→20:34)
[2024-12-06] MEDS ORDERED: DEXAMETHASONE SOD INJ 4 MG/ML VIAL ONE (06:52)
[2024-12-06] MEDS ORDERED: ONDANSETRON INJ 2 MG/ML 2 ML VIAL ONE (06:52)
[2024-12-06] MEDS ORDERED: ROCURONIUM BROMIDE 10 MG/ML 5 ML VIAL IV ONE ×2 (06:52→08:13)
[2024-12-06] MEDS ORDERED: fentaNYL citrate PF 100 MCG/2 ML VIAL ONE ×2 (06:52→08:16)
[2024-12-06] MEDS ORDERED: PROPOFOL IV EMULSION 10 MG/ML 20 ML VIAL IV ONE (06:52)
[2024-12-06] MEDS ORDERED: MIDAZOLAM HCL 1 MG/ML 2ML VIAL ONE (06:52)
[2024-12-06] MEDS ORDERED: LIDOCAINE 2% 2 ML VIAL/AMP(20MG/ML) INFIL ONE ×2 (06:52)
[2024-12-06] MEDS ORDERED: PROMETHAZINE HCL 6.25 MG in SODIUM CHLORIDE 0.9% 50 ML IV PRN (07:17)
[2024-12-06] MEDS ORDERED: ATROPINE SULFATE 0.1 MG/ML 10ML SYR IV PRN (07:17)
[2024-12-06] MEDS ORDERED: fentaNYL citrate PF 100 MCG/2 ML VIAL IV PRN (07:17)
[2024-12-06] MEDS ORDERED: ONDANSETRON INJ 2 MG/ML 2 ML VIAL IV PRN ×2 (07:17→11:48)
--- NOTE | 2024-12-06 07:21 | History & Physical Bridge Note ---
Date of Service December 06, 2024 History & Physical Bridge Note I have examined the patient, reviewed the History & Physical and in the interval since the performance of the History & Physical I have noted the following changes of clinical significance: no changes noted
[2024-12-06] MEDS: ceFAZolin 2000MG 2,000 MG/15 ML SYR IV SCH ×2 (07:34→15:37)
[2024-12-06] MEDS ORDERED: ePHEDrine sulfate 50 MG/5 ML SYR ONE (07:57)
[2024-12-06] MEDS ORDERED: SUGAMMADEX SODIUM 200 MG/2 ML VIAL IV ONE (08:18)
[2024-12-06] MEDS: BUPIVACAINE LIPOSOME 1.3% 266 MG/20 ML VIAL ONE (09:50)
[2024-12-06] MEDS: BUPIVACAINE 0.5 % 5 MG/1 ML MPF 30ML VIAL ONE (09:50)
--- NOTE | 2024-12-06 10:30 | Operative Report ---
[facility] Post Operative Report Pre & Post Diagnosis Operation Date: 12/06/24 07:30 Pre-Op Diagnosis: Prostate Cancer Post-Op Diagnosis: Prostate Cancer I identified the patient and participated in the time-out.: Yes Procedure Operation Date: 12/06/24 07:30 Actual Procedures p Robotic Assisted Laparoscopic Radical Retropubic Prostatectomy, with Bilateral Pelvic Lymph Node Dissection(Not Applicable) - Sly Shannon MD Surgeon Sly Shannon MD Electronic Field Service Engineer Noelle Lyles Estimated Blood Loss 25 Findings Consistent with Post-Op Diagnosis Specimens 1. Periprostatic fat 2. Left pelvic lymph nodes 3. Right pelvic lymph nodes 4. Prostate and seminal vesicles Description of Procedure The patient was identified in the preoperative holding area, appropriate informed consents were reviewed and completed, and he was transported to the operating suite. Subcutaneous heparin was administered in the pre-operative holding area. Upon arrival in the operating suite, he received appropriate antibiotics and general anesthesia. He was positioned in dorsal lithotomy, a B&O suppository was inserted after digital rectal exam, and he was prepped and draped in standard fashion. A Jensen catheter was inserted in the sterile field. A Veress needle was passed per umbilicus with uniform insufflation of the abdomen to 15mmHg. He was placed in steep Trendelenburg position. A periumbilical incision was then made to accommodate a 12mm Visiport with 10mm 0degree laparoscope. Inspection of the abdomen was carried out, and there was no evidence of traumatic entry or injury secondary to the Veress needle. After confirming a clear anterior abdominal wall, ports were subsequently placed in standard robotic prostatectomy fashion without incident. To begin the robotic portion of the case, the left lateral aspect of the sigmoid was mobilized off of the left pelvic side wall to allow the pouch of David to be appropriately visualized. I then made an incision in the pouch of David, overlying the seminal vesicles. Both SVs as well as the ampullae of the vasa were entirely dissected, with the vasa transected 3cm from the prostate. The medial umbilical ligaments were then controlled with bipolar electrocautery just inferior to the umbilicus. Following cauterization, they were divided utilizing monopolar cautery. A peritoneal incision was carried from this location to the medial aspect of the internal inguinal rings bilaterally with care to avoid opening through the ring. This incision was concluded when the vas deferens was reached. Dissection of the bladder and prostate off of the posterior aspect of the pubic arch was completed allowing full visualization of the prostate. The fat overlying the prostate was removed en bloc and passed off the table as a specimen labeled "periprostatic fat". The endopelvic fascia was cleared during this portion of the procedure, and subsequently opened - first on the right and then the left. The incision through the endopelvic fascia began near the prostate-bladder junction and was carried to the apex with extreme care to preserve all lateral levator musculature as well as the periurethral musculature and sphincter complex. I additionally preserved the puboprostatic ligaments. I then controlled the DVC with a 2-0 V-lock suture in overlapping/figure of 8 fashion. The lymph node dissection was then conducted. External iliac vessels were identified on the pelvic side wall. The packet of fat and lymphatic tissue that resides just under the iliac vein was elevated and off of the vein with a split and roll technique. The packet was dissected laterally to the circumflex vein and distally to the obturator nerve which was preserved. The proximal aspect of the packet was carried towards the bifurcation of the iliac vessels. A combination of monopolar and bipolar cautery were used to assist with control. After completing the dissection on both sides, the packets were collected and passed off of the table as specimens labeled "pelvic lymph nodes". My attention then returned to the prostate, with identification of the bladder neck aided by gentle traction on the Jensen catheter and lateral to medial pressure at the presumed level of the bladder neck with the robotic instruments. An anterior cystotomy was made, the Jensen balloon deflated and the catheter guided through the incision to allow anterior retraction. I attempted to preserve maximal bladder neck musculature as I circumferentially dissected around the bladder neck. Of note, he has a small intravesical median lobe which was excised with the remainder of the prostate. After incision through the posterior aspect of the mucosa, the dissection was carried through detrusor muscle until the bilateral ampullae of the vasa were identified. The previously dissected vasa and SVs were brought through the incision and used to elevated the prostate anteriorly. A posterior plane behind the prostate was then developed - splitting Denonvilliers's fascia. This dissection was carried as far as possible towards the apex as well as far as possible laterally. An incision in the lateral prostatic fascia was then made bilaterally to facilitate control of the vascular pedicles and preservation of the nerve bundles. Vasculature running along the posterior/lateral aspect of the prostate was preserved as well as the tissue containing the nerves. The pedicles were then controlled with a series of Weck clips. The apical attachments of the prostate were remaining at that stage. The DVC was divided after control with bipolar cautery over the prostate. Continuous inspection from anterior and lateral views allowed me to closely follow the apical contour of the prostate and maximally preserve urethral length and tissue. The prostate was entirely freed at that point, and collected in an EndoCatch bag before being moved out of the field of vision. Hemostasis was confirmed and anastomosis of the bladder and urethra was completed utilizing a double armed V- Lock stitch. A new Jensen catheter was inserted and the anastomosis tested with irrigation. There was no evidence of leak. A garfield style stitch was placed bilaterally to functionally marsupialize the area of the lymph node dissection. The robot was undocked, the specimen extracted through expansion of the richie- umbilical camera port. The fascia was closed with a series of 0-PDS figure of 8 stitches. All incisions were closed with 4-0 Monocryl and Dermabond. Exparel and Marcaine combination was used for local anesthesia of the incisions and fascial layers. The case was concluded and the patient taken to the PACU in stable condition. Noelle Lyles assisted from incision to closure and throughout all stevenson portions of the case. I attest to the content of the Intraoperative Record and any orders documented therein. Any exceptions are noted below.
[2024-12-06] MEDS: ePHEDrine sulfate 50 MG/ML AMP IV PRN (10:41)
[2024-12-06 10:44] LABS: Basophils # (auto) 0.03 K/uL (0.00-0.20); Basophils % (auto) 0.5 %; Eosinophils # (auto) 0.15 K/uL (0.00-0.50); Eosinophils % (auto) 2.7 %; Hematocrit (blood only) 43.8 % (42.0-52.0); Hemoglobin 14.7 g/dl (14.0-18.0); Immature Granulocytes # (auto) 0.01 K/uL (0.01-0.20); Immature Granulocytes % (auto) 0.2 %; Lymphocytes % (auto) 17.8 %; Mean Corpuscular Hemoglobin 29.1 pg (25.0-34.0); Mean Corpuscular Hgb Conc 33.6 g/dL (32.0-36.0); Mean Corpuscular Volume 86.6 fL (80.0-100.0); Mean Platelet Volume 10.4 fL (9.4-12.4); Monocytes # (auto) 0.16 K/uL (0.11-0.59); Monocytes % (auto) 2.8 %; Neutrophils # (auto) 4.27 K/uL (1.40-6.50); Platelet Count 201 K/uL (130-400); Red Blood Count 5.06 M/uL (4.70-6.10); White Blood Count 5.62 K/ul (4.8-10.8)
[2024-12-06 11:02] LABS: BUN Creatinine Ratio 11.4 (10-20); Calcium 8.8 mg/dl (8.6-10.3); Creatinine Clr Calc Pharmacy 55.8 ml/min
[2024-12-06] MEDS: HYDROmorphone INJ 2 MG/ML SYR/VIAL IV PRN (11:09)
--- NOTE | 2024-12-06 11:33 | Anesthesiology Progress Note ---
Date of Service December 06, 2024 Anesthesia Post Procedure Vital Signs Vital Signs: Temp Pulse Pulse Resp BP BP Pulse Ox 12/06/24 11:25 36.4 C L 70 20 121/77 96 12/06/24 11:15 72 14 126/75 96 12/06/24 11:05 73 12 123/75 96 12/06/24 10:55 72 12 111/66 97 12/06/24 10:45 73 16 99/60 L 96 12/06/24 10:35 57 L 18 70/42 L 95 12/06/24 10:25 61 14 117/72 96 12/06/24 10:18 36.1 C L 75 16 120/75 96 12/06/24 06:35 36.6 C 66 18 157/98 H 95 O2 Del Method O2 Flow Rate 12/06/24 11:25 Nasal Cannula 2 12/06/24 11:15 Nasal Cannula 2 12/06/24 11:05 Nasal Cannula 2 12/06/24 10:55 Oxymask 4 12/06/24 10:45 Oxymask 4 12/06/24 10:35 Oxymask 4 12/06/24 10:25 Oxymask 6 12/06/24 10:18 Oxymask 6 12/06/24 06:35 Room Air Pain Intensity Abdomen: Pain Intensity: 5 Transfer of Care Handoff Completed per policy Notes Mental Status: alert / awake / arousable and participated in evaluation Patient Amnestic to Procedure: Yes Nausea / Vomiting: adequately controlled Pain: adequately controlled Airway Patency, RR, SpO2: stable & adequate BP & HR: stable & adequate Hydration State: stable & adequate Anesthetic Complications: no major complications apparent
[2024-12-06] MEDS ORDERED: ALBUTEROL HFA 8 GM INHALER INH PRN (11:48)
[2024-12-06] MEDS ORDERED: oxyCODONE HCL IR 5 MG TAB (IMMEDIATE RELEASE) PO PRN ×2 (11:48)
[2024-12-06] MEDS ORDERED: MoRPHine SULFATE 2 MG/ML CARP IV PRN ×2 (11:48)
[2024-12-06] MEDS ORDERED: ZOLPIDEM TARTRATE 5 MG TAB PO PRN (11:48)
[2024-12-06] MEDS ORDERED: BENZONATATE 100 MG CAPSULE PO PRN (11:48)
[2024-12-06] MEDS: NON-FORMULARY MEDICATION (Chlorpheniramine Maleate [Allergy Relief(Chlorpheniramn)] 4 mg t PO SCH (13:09)
[2024-12-06] MEDS: ACETAMINOPHEN 325 MG TAB PO SCH (13:36)
[2024-12-06] MEDS: SODIUM CHLORIDE 0.9% 1,000 ML IV SCH (13:36)
[2024-12-06] MEDS: CHOLECALCIFEROL 25 MCG (1000 UNITS) TAB PO SCH (13:37)
[2024-12-06] MEDS: FAMOTIDINE 20 MG TAB PO SCH (13:37)
[2024-12-06] MEDS: DOCUSATE SODIUM 100 MG CAP PO SCH (20:34)
[2024-12-06 23:07] VITALS: RESP 16
[2024-12-07 06:01] LABS: Basophils # (auto) 0.01 K/uL (0.00-0.20); Basophils % (auto) 0.1 %; Hematocrit (blood only) 39.5 % (42.0-52.0); Hemoglobin 13.5 g/dl (14.0-18.0); Immature Granulocytes # (auto) 0.04 K/uL (0.01-0.20); Immature Granulocytes % (auto) 0.4 %; Lymphocytes # (auto) 1.07 K/uL (1.20-3.40); Lymphocytes % (auto) 9.7 %; Mean Corpuscular Hemoglobin 29.6 pg (25.0-34.0); Mean Corpuscular Hgb Conc 34.2 g/dL (32.0-36.0); Mean Corpuscular Volume 86.6 fL (80.0-100.0); Mean Platelet Volume 10.8 fL (9.4-12.4); Monocytes # (auto) 0.88 K/uL (0.11-0.59); Neutrophils # (auto) 9.02 K/uL (1.40-6.50); Neutrophils % (auto) 81.8 %; Platelet Count 197 K/uL (130-400); RDW Coefficient of Variation 12.9 % (11.5-14.5); RDW Standard Deviation 40.6 fL (36.4-46.3); Red Blood Count 4.56 M/uL (4.70-6.10); White Blood Count 11.02 K/ul (4.8-10.8)
[2024-12-07 06:19] LABS: BUN Creatinine Ratio 12.4 (10-20); Creatinine Clr Calc Pharmacy 65.6 ml/min; Potassium 4.2 mmol/L (3.5-5.1)
--- NOTE | 2024-12-07 08:05 | Urology Progress Note ---
Date of Service December 07, 2024 Assessment & Plan (1) Prostate cancer: Plan: Postop day #1 status post prostatectomy Ambulate Hep-Lock IV Advance diet Discharge home Admission and Anticipated Discharge Date Admission Date: December 06, 2024 Subjective Postop day #1 status post prostatectomy Pain well-controlled Is been ambulatory Is hungry Urine clear Physical Exam Physical Exam: Incisions all appropriate Urine clear Results & Data Vital Signs (Past 12 Hours) Vital Signs Temp Pulse Resp BP Pulse Ox O2 Del Method 12/07/24 06:54 36.8 C 65 16 124/74 93 Room Air 12/07/24 03:08 36.6 C 66 16 115/69 95 Room Air 12/06/24 23:06 36.8 C 78 16 111/66 95 Room Air PG Care Time/CCT Total # of Minutes Spent Total Time Spent with Patient: Total time spent is greater than 50% in coordination of care (as documented) at patient's floor/unit and/or counseling patient: Coding Level of Care Code None Diagnoses Prostate cancer C61
[2024-12-07] MEDS: ROSUVASTATIN CALCIUM 5 MG TAB PO SCH (08:39)
[2024-12-07] MEDS: FLUTICASONE/VILANTEROL 100/25MCG 14 PUFFS/INHALER INH SCH (08:40)
[2024-12-07] MEDS: MULTIVITAMIN TAB PO SCH (08:40)
--- NOTE | 2024-12-07 11:02 | Discharge Summary ---
Date of Service December 07, 2024 Admission HPI Per Admitting Provider Patient with prostate cancer here for robotic prostatectomy. Principal Diagnosis prostate cancer Discharge Exam Constitutional well developed and well nourished; no acute distress Respiratory normal respiratory effort; no respiratory distress and no labored breathing Gastrointestinal (Abdomen) Inspection/Auscultation: abdomen normal to inspection Musculoskeletal Head/Neck/Chest: normocephalic Neurologic moves all extremities and awake Psychiatric Orientation: alert and oriented x 3 Genitourinary Jensen intact Discharge Data Allergies Allergy/AdvReac Type Severity Reaction Status Date / Time latex AdvReac Mild Itching Verified 12/06/24 06:22 Procedures Performed Operation Date: 12/06/24 07:30 Actual Procedures p Robotic Assisted Laparoscopic Radical Retropubic Prostatectomy, with Bilateral Pelvic Lymph Node Dissection(Not Applicable) - Sly Shannon MD Hospital Course (1) Prostate cancer: Postop day #1 status post prostatectomy Ambulate Hep-Lock IV Advance diet Discharge home Patient tolerating diet and ambulating this morning, ready for discharge to home with Jensen - orders placed Expected clinical course reviewed, all questions answered Follow-up appointments in place Total Time Total Time Spent Total Time Spent (In Minutes): 25 Discharge Plan Discharge Items Patient Disposition: Home - Self-Care Reason For Visit: Malignant Neoplasm of Prostate Discharge Diagnosis: Malignant Neoplasm of Prostate Activity: Per Instructions section Lifting: No more than 10 pounds Bathing Comment: Okay to shower after discharge, no tub baths or soaking Sexual Activity: Wait until after follow-up appointment Exercise/Sports: Wait until after follow-up appointment Driving/Machine Use: No driving if taking prescription pain medication Non-emergency contact: Surgeon and Urologist Call non-emergency contact if: your pain is not controlled, you have a fever, your temperature is above 101, your wound has increased redness, your wound has increased drainage and your wound pain has increased Follow-up/Referrals: ProWayne MD [Primary Care Provider] - Sly Shannon MD [Physician] - 12/19/24 11:45 am [facility],Nurse [FAKE FOR SCHEDULES] - 12/12/24 8:30 am Diet: Regular Addtl Attending Provider Instructions: Please take all medications as prescribed and keep all follow-ups as scheduled. Please call our office at [phone] with any questions, concerns or need to reschedule appointments for any reason. We are happy to assist you. We have sent an antibiotic to your pharmacy of choice. Please begin antibiotic as prescribed the day BEFORE your scheduled voiding trial at [facility]. Please continue antibiotic every 12 hours through the day AFTER your voiding trial. Activity: We recommend having someone with you for the first few days after surgery to help care for you. For the first 2 weeks after surgery, we would like you to get up and walk around your house. However, we recommend limit physical activity that would increase your heart rate. This will allow your body to rest and heal. Take naps if you feel tired. Don't lift anything heavier than 10 pounds, mow the law or ride a bicycle until your follow-up appointment. Please avoid long car rides. Home Care: Unless directed otherwise, drink 6 to 8 glasses of water a day (enough to keep your urine light colored). This will also help keep a healthy flow of urine. We recommend using a stool softener for the first two weeks to avoid constipation. Jensen Catheter or Suprapubic Catheter care: Keep the catheter well secured with either a leg back or leg strap with large bag. Empty your bag when it's about half full. You may notice some blood in the bag. This is normal after surgery and while the catheter is in place. Use mild soap (such as Dove or Dial) and water to wash the catheter and the head of your penis daily, or more frequently if needed. Return to your normal diet, we encourage good protein intake to promote healing. You may shower as normal. Please avoid tub baths or soaking until catheter removed and incisions well healed. Wearing sweat pants while you have the catheter is recommended, they will be more comfortable. Follow-up Your follow up appointments for having your catheter removed, and follow up with your physician should already be scheduled. If you have any questions regarding this, please contact our office. Your final pathology report will be discussed at your physician follow-up appointment. Call [facility] at [phone] right away if you have any of the following: Chest pain or trouble breathing (call 911 or go to the hospital) Fever of 101F or higher, uncontrolled vomiting Heavy bleeding, clots, or bright red blood from the catheter Catheter that falls out or stops draining Foul-smelling discharge from your catheter Redness, swelling, warmth, or increased pain at your incision site Drainage, pus, or bleeding from your incision Pending Studies at Discharge: Yes (pathology) Stand-Alone Forms: My [facility], Smoking Cessation Medications and DC Order Prescriptions: New ciprofloxacin HCl 500 mg tablet 500 mg PO BID Qty: 6 0RF Rx Instructions: Start 1 day prior to voiding trial Continued zolpidem 5 mg tablet 5 mg PO HS PRN (Reason: Sleep) Qty: 90 0RF albuterol sulfate [Ventolin HFA] 90 mcg/actuation HFA aerosol inhaler 1 inh inhalation QID PRN (Reason: shortness of breath or wheezing) Qty: 18 1RF cholecalciferol (vitamin D3) 50 mcg (2,000 unit) capsule 50 mcg PO Q2D fluticasone furoate-vilanterol [Breo Ellipta] 100-25 mcg/dose blister with device 1 inh inhalation DAILY Qty: 180 0RF benzonatate 200 mg capsule 200 mg PO BID PRN (Reason: cough) Qty: 30 4RF rosuvastatin [Crestor] 5 mg tablet 5 mg PO DAILY Qty: 90 3RF chlorpheniramine maleate [Allergy Relief(chlorpheniramn)] 4 mg tablet 4 mg PO Q12H 30 Days Qty: 60 3RF multivitamin Tablet 1 tab PO QAM famotidine [Pepcid] 20 mg Tablet 20 mg PO UD Rx Instructions: 30 mg in am, 10 mg in PM--- everry other day omeprazole 20 mg tablet,delayed release (DR/EC) 20 mg PO UD Rx Instructions: every other day ibuprofen [Advil] 200 mg Tablet 400 mg PO Q6H PRN (Reason: Pain) Discharge Orders: Discharge Order (Routine); Ordered 12/07/24 Ordered By: Noelle Zendejas/Other Patient Handouts: Radical Prostatectomy Admission Data Admit Date/Time: 12/06/24 10:20 Attending Provider: Sly Shnanon Admit Provider: Sly Shannon Primary Care Provider: Wayne Coleman Other Interventions: Discharge Summary Assessment (RN) Last Done: 12/07/24 10:16 Coding Level of Care Code 66191 IN/OBS DISCH 30 MIN/LESS Diagnoses Prostate cancer C61
[2024-12-07 11:09] VITALS: BP 135/76; PULSE 75; TEMP 98.1; O2SAT 96
[2024-12-08] MEDS ORDERED: PANTOprazole 40 MG TAB PO SCH (09:00)
== END 2024-12-07 11:18 | disposition home or self-care (01) | DRG 708 ==
LOC: ASU 06:01 → 3E 10:20 → INTOOBSV 10:20